=== PATIENT | female | born 1945 | race Caucasian/White ===

== ENCOUNTER 2019-12-16 10:15 | Outpatient (REF) | payer MEDICARE, OTHER, SELFPAY ==
--- NOTE | 2019-12-16 10:25 | US_ITS ---
EXAMINATION: US RETROPERITONEAL LIMITED (RENAL ONLY) CLINICAL INFORMATION: Renal cyst and stone. COMPARISON: Limited retroperitoneal ultrasounds study dated 06/12/2019 and 06/26/2018. KUB dated 11/29/2017 and 05/18/2005. CT abdomen and pelvis without and with contrast dated 10/04/2017. TECHNIQUE: Real-time imaging of the kidneys. FINDINGS: RIGHT KIDNEY: 9.1 x 4.0 x 5.1 cm (SAG x AP x TRV). The kidney is normal in size, contour, and echogenicity. Renal cortical thickness is normal. No calculi or focal parenchymal lesions. No hydronephrosis. LEFT KIDNEY: 9.6 x 4.5 x 6.0 cm (SAG x AP x TRV). The kidney is normal in size, contour, and echogenicity. Renal cortical thickness is normal. There is a 2 mm echogenic density in the midpole questionable for a small stone. No focal parenchymal lesions or hydronephrosis. US/US renal BI IMPRESSION: Question small left renal stone. Previously identified left renal cyst is not appreciated. Normal-appearing right kidney.
== END 2019-12-16 10:16 | disposition home or self-care (01) ==
LOC: HO.US 10:15
PROVIDERS: Visit Provider Urology
DX: N20.0 Calculus of kidney (principal); N28.1 Cyst of kidney, acquired
CPT/HCPCS: 76775

== ENCOUNTER → 2020-02-25 14:33 | Outpatient (BNVA) | payer MEDICARE, OTHER, SELFPAY | PROVIDERS: PCP Internal Medicine; Referring Provider Internal Medicine; Visit Provider Urology | DX: Z76.89 Persons encountering health services in other specified circumstances (principal) | CPT/HCPCS: Q3014 ==

== ENCOUNTER → 2020-03-09 09:42 | Outpatient (BNVA) | payer MEDICARE, OTHER, SELFPAY | PROVIDERS: PCP Internal Medicine; Referring Provider Internal Medicine; Visit Provider Internal Medicine | DX: Z76.89 Persons encountering health services in other specified circumstances (principal) | CPT/HCPCS: Q3014 ==

== ENCOUNTER 2020-03-19 09:54 | Outpatient (REF) | payer MEDICARE, OTHER, SELFPAY ==
--- NOTE | ~2020-03-19 | MR_ITS ---
EXAMINATION: MR BRAIN WITHOUT AND WITH CONTRAST CLINICAL INFORMATION: Benign neoplasm of the pituitary gland. COMPARISON: Brain MRI from 06/11/2019. TECHNIQUE: MRI of the brain was obtained using pituitary protocol without and following the administration of 3.5 mL of Gadavist intravenous contrast. FINDINGS: No focal restricted diffusion is demonstrated to suggest acute or subacute cerebral ischemia. Scattered periventricular and deep white matter T2 FLAIR hyperintensities consistent with moderate underlying microangiopathy. Proportional mild prominence of the ventricles and sulcal spaces without evidence of obstructive hydrocephalus. No midline shift. Postoperative changes following prior transnasal/transsphenoidal debulking of a previously demonstrated pituitary adenoma. A hypoenhancing lesion positioned anterior and superior to the pituitary gland, measuring 1.3 x 0.8 x 0.8 cm (previously 1.1 x 0.7 x 0.6 cm measured in similar planes). This lesion is again noted to abut the superior margin of the anterior pituitary gland. Normal morphology and signal intensity of the pituitary gland proper on precontrast imaging. Normal posterior pituitary bright spot. No additional hyperenhancing or hypoenhancing lesions demonstrated on post contrast imaging. The pituitary infundibulum is normal in morphology and remains midline in position. No overtly abnormal mass effect on the optic chiasm. No abnormalities of the posterior fossa with normal appearance of the brainstem and cerebellum. Normal positioning of the cerebellar tonsils. Normal arterial and venous vascular flow voids are present. No additional abnormal contrast enhancement. Normal, homogeneous marrow signal. Mild mucosal thickening of the paranasal sinuses. Mild leftward nasal septal deviation. No signal abnormalities within the mastoids. MR/MR head/brain wo/w con IMPRESSION: Postoperative changes following prior transnasal/transsphenoidal debulking of a pituitary adenoma. Interval mild increase in size of a hypoenhancing lesion along the anterior superior margins of the pituitary gland suggestive of mild lesion progression. No additional acute intracranial abnormalities. Moderate underlying microangiopathy.
[2020-03-19 10:48] LABS: Albumin Level 4.4 g/dL (3.5-5.0)
[2020-03-19 10:52] LABS: Anion Gap 13 (12-20); Blood Urea Nitrogen 17 mg/dL (9-16); Calcium 9.5 mg/dL (8.4-10.2); Carbon Dioxide 28 mmol/L (22-29); Chloride 104 mmol/L (96-108); Estimated Glomerular Filt Rate > 60; Glucose Random 107 mg/dL (60-115); Phosphorus 4.2 mg/dL (2.7-4.5); Potassium 4.4 mmol/L (3.3-5.1); Sodium 141 mmol/L (135-145)
[2020-03-19 11:15] LABS: Free T4 (Free Thyroxine) 0.95 ng/dL (0.71-1.85); Vitamin D 25-OH Total 41.8 ng/mL (>30)
[2020-03-20 04:52] LABS: Triiodothyronine T3 Total 109 ng/dL (76-181)
[2020-03-20 13:13] LABS: Calcium (PTHI) 9.5 mg/dL (8.6-10.4); PTHI 63 pg/mL (14-64)
[2020-03-20 23:06] LABS: Follicle Stimulating Hormone 51.7 mIU/mL; Lutenizing Hormone 27.1 mIU/mL; Prolactin Undiluted 8.2 ng/mL
[2020-03-24 12:17] LABS: IGF-1 (Somatomedin C) 90 ng/mL (34-245); IGF-1 Z Score (Female) -0.3 SD (-2.0 - +2.0)
== END 2020-03-19 09:55 | disposition home or self-care (01) ==
LOC: HO.MRI 09:54
PROVIDERS: Visit Provider Internal Medicine
DX: D35.2 Benign neoplasm of pituitary gland (principal); E21.3 Hyperparathyroidism, unspecified; E66.9 Obesity, unspecified
CPT/HCPCS: 36415; 70553; 80048; 82040; 82306; 82330; 83001; 83002; 83970; 84100; 84146; 84305; 84439; 84443; 84480; A9585

== ENCOUNTER 2020-05-01 10:41 | Outpatient (REF) | payer MEDICARE, OTHER, SELFPAY ==
[2020-05-01 13:39] LABS: MANUAL DIFF FLAG NO
[2020-05-01 13:41] LABS: Basophils Absolute Auto 0.1 X10*3/uL (0.0-0.2); Basophils Percent Auto 0.8 % (0-2); Eosinophils Absolute Auto 0.4 X10*3/uL (0.0-0.4); Eosinophils Percent Auto 5.9 % (0-4); Hematocrit 36.2 % (37-47); Hemoglobin 11.5 g/dl (12.0-16.0); Imm Gran Abs Auto 0.02 X10*3/uL (0.00-0.03); Imm Gran Pct Auto 0.3 % (0.0-0.4); Lymphocytes Absolute Auto 2.4 X10*3/uL (1.2-4.9); Lymphocytes Percent Auto 37.6 % (20-40); Mean Corpuscular HGB Conc 31.8 g/dl (31.0-35.0); Mean Corpuscular Volume 88.1 fL (80-98); Mean Platelet Volume 11.1 fL (9.4-12.3); Monocytes Absolute Auto 0.5 X10*3/uL (0.1-1.2); Neutrophils Absolute Auto 3.1 X10*3/uL (2.0-8.3); Neutrophils Percent Auto 48.4 % (45-73); Platelet Count 273 X10*3/uL (160-400); Red Blood Count 4.11 X10*6/uL (4.20-5.50); Red Cell Distribution Width 13.4 % (11.0-16.0); White Blood Count 6.4 X10*3/uL (4.8-10.8)
[2020-05-01 14:18] LABS: Alanine Aminotransferase 18 U/L (0-31); Albumin Level 4.4 g/dL (3.5-5.0); Alkaline Phosphatase 157 U/L (39-117); Anion Gap 11 (12-20); Aspartate Amino Transferase 19 U/L (5-31); Bilirubin Total 0.7 mg/dL (0.0-1.0); Blood Urea Nitrogen 13 mg/dL (9-16); Calcium 9.1 mg/dL (8.4-10.2); Carbon Dioxide 32 mmol/L (22-29); Chloride 104 mmol/L (96-108); Cholesterol 167 mg/dL; Estimated Glomerular Filt Rate > 60; Glucose Random 98 mg/dL (60-115); Potassium 4.1 mmol/L (3.3-5.1); Sodium 143 mmol/L (135-145); Total Protein 7.2 g/dL (6.5-8.0)
[2020-05-01 14:40] LABS: Free T4 (Free Thyroxine) 1.08 ng/dL (0.71-1.85); Thyroid Stimulating Hormone 2.35 uIU/mL (0.32-4.0)
[2020-05-04 16:32] LABS: Calcium (PTHI) 9.2 mg/dL (8.6-10.4); PTHI 63 pg/mL (14-64)
== END 2020-05-01 10:42 | disposition home or self-care (01) ==
LOC: HO.10HDL 10:41
PROVIDERS: Visit Provider Internal Medicine
DX: E03.9 Hypothyroidism, unspecified (principal); I10 Essential (primary) hypertension; K21.9 Gastro-esophageal reflux disease without esophagitis; E78.00 Pure hypercholesterolemia, unspecified; E20.9 Hypoparathyroidism, unspecified
CPT/HCPCS: 36415; 80053; 82465; 83970; 84439; 84443; 85025

== ENCOUNTER → 2020-05-04 09:23 | Outpatient (BNVA) | payer MEDICARE, OTHER, SELFPAY | PROVIDERS: PCP Internal Medicine; Visit Provider Internal Medicine | DX: Z13.89 Encounter for screening for other disorder (principal) | CPT/HCPCS: Q3014 ==

== ENCOUNTER 2020-05-06 07:33 | Outpatient (REF) | payer MEDICARE, OTHER, SELFPAY ==
[2020-05-06 09:06] LABS: Albumin Level 4.3 g/dL (3.5-5.0); Calcium 9.2 mg/dL (8.4-10.2)
[2020-05-07 18:11] LABS: Calcium (PTHI) 9.4 mg/dL (8.6-10.4); PTHI 80 pg/mL (14-64)
== END 2020-05-06 07:34 | disposition home or self-care (01) ==
LOC: HO.LAB 07:33
PROVIDERS: PCP Internal Medicine; Visit Provider Internal Medicine
DX: E21.3 Hyperparathyroidism, unspecified (principal)
CPT/HCPCS: 36415; 82040; 82310; 83970

== ENCOUNTER 2020-07-15 07:43 | Outpatient (REF) | payer MEDICARE, OTHER, SELFPAY ==
[2020-07-15 08:57] LABS: Anion Gap 12 (12-20); Blood Urea Nitrogen 8 mg/dL (9-16); Calcium 9.6 mg/dL (8.4-10.2); Carbon Dioxide 28 mmol/L (22-29); Chloride 107 mmol/L (96-108); Estimated Glomerular Filt Rate > 60; Glucose Random 118 mg/dL (60-115); Potassium 4.3 mmol/L (3.3-5.1); Sodium 143 mmol/L (135-145)
[2020-07-15 09:09] LABS: Osmolality, Serum 297 mosm/kg (281-305)
[2020-07-15 09:19] LABS: Free T4 (Free Thyroxine) 0.95 ng/dL (0.71-1.85); Thyroid Stimulating Hormone 2.63 uIU/mL (0.32-4.0)
[2020-07-16 16:42] LABS: Triiodothyronine T3 Total 114 ng/dL (76-181)
[2020-07-16 17:51] LABS: Sex Hormone Binding Globulin 31 nmol/L (14-73)
[2020-07-16 20:41] LABS: Follicle Stimulating Hormone 55.3 mIU/mL; Lutenizing Hormone 24.2 mIU/mL; Prolactin 9.7 ng/mL
[2020-07-16 22:41] LABS: Adrenocorticotropic Hormone 14 pg/mL (6-50)
[2020-07-19 21:47] LABS: Estradiol Ultra Sensitive 5 pg/mL
[2020-07-20 14:12] LABS: IGF-1 (Somatomedin C) 73 ng/mL (34-245); IGF-1 Z Score (Female) -0.7 SD (-2.0 - +2.0)
[2020-07-30 00:52] LABS: Estradiol Free 0.13 pg/mL
== END 2020-07-15 07:44 | disposition home or self-care (01) ==
LOC: HO.LAB 07:43
PROVIDERS: PCP Internal Medicine; Visit Provider Internal Medicine
DX: D35.2 Benign neoplasm of pituitary gland (principal)
CPT/HCPCS: 36415; 80048; 82024; 82533; 82670; 82681; 83001; 83002; 83930; 84146; 84270; 84305; 84439; 84443; 84480

== ENCOUNTER 2020-07-18 08:36 | Outpatient (REF) | payer MEDICARE, OTHER, SELFPAY ==
[2020-07-18 08:59] LABS: Total Volume 24 Hour Urine 2225 mL
[2020-07-18 09:54] LABS: Creatinine, mg/dL 43.01
[2020-07-20 17:52] LABS: Calcium, 24 Hr Urine 98 mg/24 h; Calcium/Creatinine Ratio 94 mg/g creat (30-275); Creatinine 24Hr Urine 1.05 g/24 h (0.50-2.15)
== END 2020-07-18 08:37 | disposition home or self-care (01) ==
LOC: HO.LNP 08:36
PROVIDERS: Visit Provider Internal Medicine
DX: E21.3 Hyperparathyroidism, unspecified (principal)
CPT/HCPCS: 82340; 82570

== ENCOUNTER → 2020-08-03 08:08 | Outpatient (BNVA) | payer MEDICARE, OTHER, SELFPAY | PROVIDERS: PCP Internal Medicine; Visit Provider Internal Medicine | CPT/HCPCS: Q3014 ==

== ENCOUNTER 2020-08-21 08:19 | Outpatient (REF) | payer MEDICARE, OTHER, SELFPAY ==
--- NOTE | ~2020-08-21 | MM_ITS ---
EXAMINATION: MM SCREENING DIGITAL BREAST TOMOSYNTHESIS, BILATERAL CLINICAL INFORMATION: Screening. Asymptomatic. The lifetime risk of breast cancer based on the Tyrer-Cuzick Model is 3%. COMPARISON: Mammography: 08/16/2019, 08/11/2018, 06/22/2017 TECHNIQUE: Digital breast tomosynthesis is performed in both the craniocaudal and mediolateral oblique views along with computer-aided detection (CAD). Synthesized 2D images are generated from the tomosynthesis. FINDINGS: There are scattered areas of fibroglandular density (ACR BI-RADS breast composition Category b). There are no significant masses, abnormal calcifications, or other abnormalities. Parenchymal pattern is similar to prior studies. No significant changes. MM/MM tomosynthesis screening BI IMPRESSION: There are no significant changes from prior study. ASSESSMENT: BI-RADS 1: Negative RECOMMENDATION: Routine annual mammography screening. This patient's information was entered into a reminder system with a target due date for their next mammogram.
== END 2020-08-21 08:20 | disposition home or self-care (01) ==
LOC: HO.MAMMO 08:19
PROVIDERS: PCP Internal Medicine; Visit Provider Internal Medicine
DX: Z12.31 Encounter for screening mammogram for malignant neoplasm of breast (principal)
CPT/HCPCS: 77063; 77067

== ENCOUNTER 2020-08-24 08:38 | Outpatient (REF) | payer MEDICARE, OTHER, SELFPAY ==
--- NOTE | ~2020-08-24 | US_ITS ---
EXAMINATION: US RETROPERITONEAL LIMITED (RENAL ONLY) CLINICAL INFORMATION: Cyst of kidney, acquired. COMPARISON: Renal ultrasound 12/16/2019 and 06/12/2019. X-ray abdomen KUB 11/29/2017. CT abdomen and pelvis 10/04/2017. TECHNIQUE: Real-time imaging of the kidneys. FINDINGS: RIGHT KIDNEY: 10.0 x 3.7 x 4.8 cm (SAG x AP x TRV). The kidney is normal in size, contour, and echogenicity. Renal cortical thickness is normal. No calculi or focal parenchymal lesions. No hydronephrosis. LEFT KIDNEY: 10.1 x 5.3 x 4.6 cm (SAG x AP x TRV). The kidney is normal in size, contour, and echogenicity. Renal cortical thickness is normal. There is a 7 mm hypoechoic lesion in the midpole. This was not seen on most recent exam December 2019. This appears unchanged in size from earlier renal ultrasound exam May [address] of the abdomen and pelvis September 2017. This has internal echoes that are difficult to clear, particularly on the transverse view, and not compatible with a simple cyst. No renal calculi or hydronephrosis. US/US renal BI IMPRESSION: No change in size in the 7 mm hypoechoic lesion in the peripheral left kidney. This has some internal echoes that are difficult to clear and may represent a complex cyst. Continued follow-up recommended.
== END 2020-08-24 08:39 | disposition home or self-care (01) ==
LOC: HO.US 08:38
PROVIDERS: Visit Provider Urology
DX: N28.1 Cyst of kidney, acquired (principal); N20.0 Calculus of kidney
CPT/HCPCS: 76775

== ENCOUNTER 2020-11-02 07:27 | Outpatient (REF) | payer MEDICARE, OTHER, SELFPAY ==
[2020-11-02 08:25] LABS: Osmolality, Serum 299 mosm/kg (281-305)
[2020-11-02 08:35] LABS: Alanine Aminotransferase 21 U/L (0-31); Albumin Level 4.3 g/dL (3.5-5.0); Alkaline Phosphatase 129 U/L (39-117); Anion Gap 14 (12-20); Aspartate Amino Transferase 21 U/L (5-31); Bilirubin Total 0.5 mg/dL (0.0-1.0); Blood Urea Nitrogen 13 mg/dL (9-16); Calcium 9.5 mg/dL (8.4-10.2); Carbon Dioxide 26 mmol/L (22-29); Chloride 107 mmol/L (96-108); Estimated Glomerular Filt Rate > 60; Glucose Random 131 mg/dL (60-115); Phosphorus 3.9 mg/dL (2.7-4.5); Potassium 4.3 mmol/L (3.3-5.1); Sodium 143 mmol/L (135-145); Total Protein 6.9 g/dL (6.5-8.0)
[2020-11-02 09:31] LABS: Free T4 (Free Thyroxine) 0.87 ng/dL (0.71-1.85); Vitamin D 25-OH Total 39.9 ng/mL (>30)
[2020-11-03 18:06] LABS: Triiodothyronine T3 Total 96 ng/dL (76-181)
[2020-11-03 18:17] LABS: Sex Hormone Binding Globulin 30 nmol/L (14-73)
[2020-11-03 18:27] LABS: Calcium (PTHI) 9.7 mg/dL (8.6-10.4); PTHI 51 pg/mL (14-64)
[2020-11-03 18:56] LABS: Adrenocorticotropic Hormone 31 pg/mL (6-50)
[2020-11-04 03:18] LABS: Follicle Stimulating Hormone 55.9 mIU/mL; Lutenizing Hormone 27.7 mIU/mL; Prolactin Undiluted 10.1 ng/mL
[2020-11-05 14:47] LABS: IGF-1 (Somatomedin C) 58 ng/mL (34-245); IGF-1 Z Score (Female) -1.1 SD (-2.0 - +2.0)
[2020-11-12 22:17] LABS: Estradiol Free 0.15 pg/mL; Estradiol, Ultrasensitive 6 pg/mL
== END 2020-11-02 07:28 | disposition home or self-care (01) ==
LOC: HO.LAB 07:27
PROVIDERS: PCP Internal Medicine; Visit Provider Internal Medicine
DX: D35.2 Benign neoplasm of pituitary gland (principal); E03.9 Hypothyroidism, unspecified; E04.2 Nontoxic multinodular goiter; E21.3 Hyperparathyroidism, unspecified; E55.9 Vitamin D deficiency, unspecified
CPT/HCPCS: 36415; 80053; 82024; 82306; 82533; 82670; 82681; 83001; 83002; 83930; 83970; 84100; 84146; 84270; 84305; 84439; 84443; 84480

== ENCOUNTER → 2020-11-11 13:28 | Outpatient (BNVA) | payer MEDICARE, OTHER, SELFPAY | PROVIDERS: PCP Internal Medicine; Visit Provider Internal Medicine | DX: E21.3 Hyperparathyroidism, unspecified (principal); E03.9 Hypothyroidism, unspecified; E55.9 Vitamin D deficiency, unspecified; E04.2 Nontoxic multinodular goiter; D35.2 Benign neoplasm of pituitary gland; M85.80 Other specified disorders of bone density and structure, unspecified site | CPT/HCPCS: 99212 ==

== ENCOUNTER → 2020-11-20 14:07 | Outpatient (BNVA) | payer MEDICARE, OTHER, SELFPAY | PROVIDERS: PCP Internal Medicine | DX: N20.0 Calculus of kidney (principal); N28.1 Cyst of kidney, acquired | CPT/HCPCS: Q3014 ==

== ENCOUNTER 2020-12-21 07:29 | Outpatient (REF) | payer MEDICARE, OTHER, SELFPAY ==
[2020-12-21 07:46] LABS: MANUAL DIFF FLAG NO
[2020-12-21 08:26] LABS: Basophils Absolute Auto 0.1 X10*3/uL (0.0-0.2); Basophils Percent Auto 0.8 % (0-2); Eosinophils Absolute Auto 0.2 X10*3/uL (0.0-0.4); Eosinophils Percent Auto 3.5 % (0-4); Hematocrit 37.1 % (37.0-47.0); Hemoglobin 11.6 g/dl (12.0-16.0); Imm Gran Abs Auto 0.01 X10*3/uL (0.00-0.03); Imm Gran Pct Auto 0.2 % (0.0-0.4); Lymphocytes Absolute Auto 2.3 X10*3/uL (1.2-4.9); Lymphocytes Percent Auto 38.2 % (20-40); Mean Corpuscular HGB Conc 31.3 g/dl (31.0-35.0); Mean Corpuscular Hemoglobin 26.7 pg (27.0-33.0); Mean Corpuscular Volume 85.3 fL (80.0-98.0); Mean Platelet Volume 10.4 fL (9.4-12.3); Monocytes Absolute Auto 0.4 X10*3/uL (0.1-1.2); Neutrophils Absolute Auto 3.1 x10*3/uL (2.0-8.3); Neutrophils Percent Auto 51.3 % (45-73); Platelet Count 258 X10*3/uL (160-400); Red Blood Count 4.35 X10*6/uL (4.20-5.50); Red Cell Distribution Width 14.3 % (11.0-16.0)
[2020-12-21 08:49] LABS: Alanine Aminotransferase 26 U/L (0-31); Albumin Level 4.3 g/dL (3.5-5.0); Alkaline Phosphatase 135 U/L (39-117); Anion Gap 12 (12-20); Aspartate Amino Transferase 25 U/L (5-31); Bilirubin Total 0.6 mg/dL (0.0-1.0); Blood Urea Nitrogen 12 mg/dL (9-16); Calcium 9.5 mg/dL (8.4-10.2); Carbon Dioxide 28 mmol/L (22-29); Chloride 106 mmol/L (96-108); Cholesterol 145 mg/dL; Estimated Glomerular Filt Rate 59; Glucose Fasting 128 mg/dL (60-99); HDL Cholesterol 45 mg/dL; LDL Cholesterol Calculated 58 mg/dl; Potassium 4.4 mmol/L (3.3-5.1); Sodium 142 mmol/L (135-145); Total Protein 7.1 g/dL (6.5-8.0); Triglycerides 210 mg/dL
[2020-12-21 09:00] LABS: Thyroid Stimulating Hormone 1.51 uIU/mL (0.32-4.0)
[2020-12-22 18:11] LABS: Triiodothyronine T3 Total 116 ng/dL (76-181)
== END 2020-12-21 07:30 | disposition home or self-care (01) ==
LOC: HO.LAB 07:29
PROVIDERS: Absent Provider Internal Medicine; PCP Internal Medicine; Visit Provider Internal Medicine
DX: E03.9 Hypothyroidism, unspecified (principal); E78.00 Pure hypercholesterolemia, unspecified; I10 Essential (primary) hypertension; K21.9 Gastro-esophageal reflux disease without esophagitis; E04.2 Nontoxic multinodular goiter
CPT/HCPCS: 36415; 80053; 80061; 84439; 84443; 84480; 85025

== ENCOUNTER 2020-12-22 12:58 | Outpatient (REF) | payer MEDICARE, OTHER, SELFPAY ==
--- NOTE | ~2020-12-22 | US_ITS ---
EXAMINATION: US THYROID CLINICAL INFORMATION: Nontoxic multinodular goiter COMPARISON: Ultrasound soft tissue head/neck thyroid dated 07/11/2019 and 10/18/2011. TECHNIQUE: Linear transducer grayscale and color Doppler examination with attention to the region of the thyroid. FINDINGS: SIZE: Measurements of the thyroid lobes and nodules are given in sagittal, anteroposterior and transverse dimensions respectively. Right Thyroid Lobe: 3.7 x 1.4 x 0.9 cm, volume 2.5 mL. Left Thyroid Lobe: 3.6 x 1.2 x 0.7 cm, volume 1.6 mL. Isthmus: 0.3 cm in maximum AP dimension. THYROID PARENCHYMA NODULES: Thyroid gland has normal echotexture with exception of scattered small colloid cysts. The vascularity of the gland is normal. The colloid cysts in the mid and lower pole the right lobe, isthmus and inferior left lobe measure less than 0.4 cm. A small, approximately 0.1 cm echogenic focus of apparent calcification is seen in the left lobe. This corresponds to the area of the colloid cyst that previously measured 0.8 cm. NODES: No lymphadenopathy is seen in the tissue surrounding the thyroid gland. US/US thyroid IMPRESSION: Multiple small colloid cysts are present in the thyroid gland. Based on use of ACR TI-RADS, there are no nodules that require recommendations for either follow-up or fine needle aspiration-biopsy. However, ACR TI-RADS Committee recommendations serve as guidance. Ultimately, decisions regarding whether or not to perform ultrasound follow-up or FNA should account for referring physician preference, patient risk factors for thyroid cancer, patient age, comorbidities, life expectancy and any other relevant considerations.
== END 2020-12-22 12:59 | disposition home or self-care (01) ==
LOC: HO.US 12:58
PROVIDERS: PCP Internal Medicine; Visit Provider Internal Medicine
DX: E04.2 Nontoxic multinodular goiter (principal)
CPT/HCPCS: 76536

== ENCOUNTER 2021-05-10 07:02 | Outpatient (REF) | payer MEDICARE, OTHER, SELFPAY ==
[2021-05-10 07:49] LABS: Alanine Aminotransferase 22 U/L (0-31); Albumin Level 4.3 g/dL (3.5-5.0); Alkaline Phosphatase 121 U/L (39-117); Anion Gap 12 (12-20); Aspartate Amino Transferase 21 U/L (5-31); Bilirubin Total 0.6 mg/dL (0.0-1.0); Blood Urea Nitrogen 14 mg/dL (9-16); Calcium 9.5 mg/dL (8.4-10.2); Carbon Dioxide 27 mmol/L (22-29); Chloride 108 mmol/L (96-108); Estimated Glomerular Filt Rate > 60; Glucose Random 122 mg/dL (60-115); Phosphorus 3.5 mg/dL (2.7-4.5); Potassium 4.3 mmol/L (3.3-5.1); Sodium 143 mmol/L (135-145)
[2021-05-10 08:11] LABS: Free T4 (Free Thyroxine) 1.12 ng/dL (0.71-1.85); Thyroid Stimulating Hormone 1.26 uIU/mL (0.32-4.0); Vitamin D 25-OH Total 41.2 ng/mL (>30)
[2021-05-10 08:50] LABS: Cortisol Random 9.3 ug/dL
[2021-05-11 07:40] LABS: Osmolality, Serum 295 mosm/kg (281-305)
[2021-05-11 17:16] LABS: Triiodothyronine T3 Total 115 ng/dL (76-181)
[2021-05-11 18:52] LABS: Follicle Stimulating Hormone 59.8 mIU/mL; Lutenizing Hormone 26.9 mIU/mL; Prolactin Undiluted 7.3 ng/mL
[2021-05-13 15:06] LABS: Calcium (PTHI) 9.4 mg/dL (8.6-10.4); PTHI 48 pg/mL (16-77)
[2021-05-13 15:22] LABS: Adrenocorticotropic Hormone 16 pg/mL (6-50)
[2021-05-14 11:42] LABS: IGF-1 (Somatomedin C) 98 ng/mL (34-245); IGF-1 Z Score (Female) -0.1 SD (-2.0 - +2.0)
[2021-05-20 03:46] LABS: Estradiol, Ultrasensitive 5 pg/mL
== END 2021-05-10 07:03 | disposition home or self-care (01) ==
LOC: HO.LAB 07:02
PROVIDERS: PCP Internal Medicine; Referring Provider Internal Medicine; Visit Provider Internal Medicine
DX: E03.9 Hypothyroidism, unspecified (principal); E04.2 Nontoxic multinodular goiter; E21.3 Hyperparathyroidism, unspecified; E55.9 Vitamin D deficiency, unspecified; D35.2 Benign neoplasm of pituitary gland
CPT/HCPCS: 36415; 80053; 82024; 82306; 82533; 82670; 82681; 83001; 83002; 83930; 83970; 84100; 84146; 84305; 84439; 84443; 84480

== ENCOUNTER → 2021-05-12 13:18 | Outpatient (BNVA) | payer MEDICARE, OTHER, SELFPAY | PROVIDERS: PCP Internal Medicine; Visit Provider Internal Medicine | DX: E21.3 Hyperparathyroidism, unspecified (principal); D35.2 Benign neoplasm of pituitary gland; E04.2 Nontoxic multinodular goiter; E55.9 Vitamin D deficiency, unspecified; M85.80 Other specified disorders of bone density and structure, unspecified site; E27.40 Unspecified adrenocortical insufficiency | CPT/HCPCS: 99212 ==

== ENCOUNTER 2021-05-25 07:32 | Outpatient (REF) | payer MEDICARE, OTHER, SELFPAY ==
[2021-05-26 12:42] LABS: Adrenocorticotropic Hormone 19 pg/mL (6-50)
[2021-05-26 23:27] LABS: Cortisol 30 Minute 25.3 mcg/dL; Cortisol Baseline 15.4 mcg/dL
== END 2021-05-25 07:33 | disposition home or self-care (01) ==
LOC: HO.MDS 07:32
PROVIDERS: PCP Internal Medicine; Visit Provider Internal Medicine
DX: E27.40 Unspecified adrenocortical insufficiency (principal)
CPT/HCPCS: 36415; 82024; 82533; 96374; J0834

== ENCOUNTER 2021-08-23 07:20 | Outpatient (REF) | payer MEDICARE, OTHER, SELFPAY ==
[2021-08-23 08:14] LABS: Alanine Aminotransferase 32 U/L (0-31); Albumin Level 4.3 g/dL (3.5-5.0); Alkaline Phosphatase 117 U/L (39-117); Anion Gap 11 (12-20); Aspartate Amino Transferase 32 U/L (5-31); Bilirubin Total 0.4 mg/dL (0.0-1.0); Blood Urea Nitrogen 11 mg/dL (9-16); Carbon Dioxide 27 mmol/L (22-29); Chloride 107 mmol/L (96-108); Estimated Glomerular Filt Rate > 60; Glucose Random 130 mg/dL (60-115); Phosphorus 3.5 mg/dL (2.7-4.5); Potassium 4.1 mmol/L (3.3-5.1); Sodium 141 mmol/L (135-145); Total Protein 7.1 g/dL (6.5-8.0)
[2021-08-23 08:34] LABS: Free T4 (Free Thyroxine) 1.61 ng/dL (0.71-1.85); Thyroid Stimulating Hormone 1.05 uIU/mL (0.32-4.0); Vitamin D 25-OH Total 41.6 ng/mL (>30)
[2021-08-23 09:02] LABS: Osmolality, Serum 306 mosm/kg (281-305)
[2021-08-23 11:47] LABS: Cortisol Random 9.1 ug/dL
[2021-08-24 12:11] LABS: Calcium (PTHI) 9.1 mg/dL (8.6-10.4); PTHI 58 pg/mL (16-77)
[2021-08-24 15:26] LABS: Adrenocorticotropic Hormone 17 pg/mL (6-50)
[2021-08-25 06:21] LABS: Triiodothyronine T3 Total 101 ng/dL (76-181)
[2021-08-25 08:22] LABS: Sex Hormone Binding Globulin 32 nmol/L (14-73)
[2021-08-25 23:31] LABS: Follicle Stimulating Hormone 50.8 mIU/mL; Prolactin Undiluted 8.5 ng/mL
[2021-08-26 22:11] LABS: Estradiol Ultra Sensitive 4 pg/mL
[2021-08-27 13:46] LABS: IGF-1 (Somatomedin C) 88 ng/mL (34-245); IGF-1 Z Score (Female) -0.3 SD (-2.0 - +2.0)
== END 2021-08-23 07:21 | disposition home or self-care (01) ==
LOC: HO.LAB 07:20
PROVIDERS: PCP Internal Medicine; Visit Provider Internal Medicine
DX: D35.2 Benign neoplasm of pituitary gland (principal); E21.3 Hyperparathyroidism, unspecified; E55.9 Vitamin D deficiency, unspecified
CPT/HCPCS: 36415; 80053; 82024; 82306; 82533; 82670; 83001; 83002; 83930; 83970; 84100; 84146; 84270; 84305; 84439; 84443; 84480

== ENCOUNTER 2021-08-25 08:27 | Outpatient (REF) | payer MEDICARE, OTHER, SELFPAY ==
--- NOTE | ~2021-08-25 | MM_ITS ---
EXAMINATION: MM SCREENING DIGITAL BREAST TOMOSYNTHESIS, BILATERAL CLINICAL INFORMATION: Screening. Asymptomatic. The lifetime risk of breast cancer based on the Tyrer-Cuzick Model is 3%. COMPARISON: Mammography: 08/21/2020, 08/16/2019, 08/11/2018 TECHNIQUE: Digital breast tomosynthesis is performed in both the craniocaudal and mediolateral oblique views along with computer-aided detection (CAD). Synthesized 2D images are generated from the tomosynthesis. Additional bilateral CC views are provided. FINDINGS: There are scattered areas of fibroglandular density (ACR BI-RADS breast composition Category b). There are no significant masses, abnormal calcifications, or other abnormalities. Breast tissue composition borders on predominantly fatty. Background stromal markings are normal. No developing density. No significant changes. MM/MM tomosynthesis screening BI IMPRESSION: No mammographic evidence of malignancy. ASSESSMENT: BI-RADS 1: Negative RECOMMENDATION: Routine annual mammography screening. This patient's information was entered into a reminder system with a target due date for their next mammogram.
== END 2021-08-25 08:28 | disposition home or self-care (01) ==
LOC: HO.MAMMO 08:27
PROVIDERS: Visit Provider Internal Medicine
DX: Z12.31 Encounter for screening mammogram for malignant neoplasm of breast (principal)
CPT/HCPCS: 77063; 77067

== ENCOUNTER 2021-08-30 07:12 | Outpatient (REF) | payer MEDICARE, OTHER, SELFPAY ==
[2021-08-30 08:18] LABS: Alanine Aminotransferase 24 U/L (0-31); Albumin Level 4.3 g/dL (3.5-5.0); Alkaline Phosphatase 112 U/L (39-117); Aspartate Amino Transferase 24 U/L (5-31); Bilirubin Direct 0.2 mg/dL (0.0-0.5); Bilirubin Total 0.5 mg/dL (0.0-1.0)
== END 2021-08-30 07:13 | disposition home or self-care (01) ==
LOC: HO.LAB 07:12
PROVIDERS: PCP Internal Medicine; Visit Provider Internal Medicine
DX: D35.2 Benign neoplasm of pituitary gland (principal)
CPT/HCPCS: 36415; 80076

== ENCOUNTER 2021-09-07 07:37 | Outpatient (REF) | payer MEDICARE, OTHER, SELFPAY ==
[2021-09-08 19:32] LABS: Adrenocorticotropic Hormone 12 pg/mL (6-50)
[2021-09-09 00:31] LABS: Cortisol 30 Minute 20.4 mcg/dL; Cortisol 60 Minute 24.7 mcg/dL; Cortisol Baseline 7.8 mcg/dL
== END 2021-09-07 07:38 | disposition home or self-care (01) ==
LOC: HO.MDS 07:37
PROVIDERS: PCP Internal Medicine; Visit Provider Internal Medicine
DX: E27.40 Unspecified adrenocortical insufficiency (principal)
CPT/HCPCS: 36415; 82024; 82533; 96374; J0834

== ENCOUNTER → 2021-09-08 12:54 | Outpatient (BNVA) | payer MEDICARE, OTHER, SELFPAY | PROVIDERS: PCP Internal Medicine; Visit Provider Internal Medicine | DX: D35.2 Benign neoplasm of pituitary gland (principal); E27.40 Unspecified adrenocortical insufficiency; E21.3 Hyperparathyroidism, unspecified; E04.2 Nontoxic multinodular goiter; E03.9 Hypothyroidism, unspecified; E55.9 Vitamin D deficiency, unspecified; M85.80 Other specified disorders of bone density and structure, unspecified site | CPT/HCPCS: 99212 ==

== ENCOUNTER 2021-09-13 11:18 | Day surgery (SDC) | payer MEDICARE, OTHER, SELFPAY ==
[2021-09-08 09:58] VITALS: BMI 29.0
--- NOTE | 2021-09-09 15:28 | P.CONAN_ITS ---
Documented by User: Maria Guadalupe Nash NP 09/10/21 08:25 HPI - Anesthesia Eval Consult details Narrative: 76yo F for Colonoscopy PMFSH Active Problems Active Problems: All Active Problems (Updated 09/08/21 @ 09:58 by Deedee Soler, EVA) Low serum cortisol level (Acute) Renal cyst (Acute) Renal stone (Acute) Multinodular thyroid (Acute) Hyperparathyroidism (Acute) Hypothyroidism (Acute) Vitamin D deficiency (Acute) Osteopenia (Acute) Pituitary macroadenoma (Acute) Past Medical History Medical History CAD (coronary artery disease) GERD (gastroesophageal reflux disease) HLD (hyperlipidemia) Hyperparathyroidism Hypothyroidism Low serum cortisol level Multinodular thyroid Myocardial infarct Osteopenia Pituitary macroadenoma Renal cyst Renal stone Vitamin D deficiency Family History Family History Father Liver cancer Mother Pancreatic cancer Surgical History Surgical History H/O colonoscopy History of bladder surgery History of esophagogastroduodenoscopy (EGD) History of pituitary surgery Hx of lithotripsy Hx of parathyroidectomy Hx of squamous cell carcinoma excision Social History Social History Alcohol intake: never Patient Tobacco Use Status: Never used Tobacco Are you DNR?: No Advance Directives: No Advance Directives Information Provided: Yes Nutrition Risks: No Nutritional Risk Meds Allergies Allergy/AdvReac Type Severity Reaction Status Date / Time No Known Allergies Allergy Verified 09/13/21 11:48 [No Known Allergies*] Home Medications Medication Instructions Recorded Confirmed Last Taken Type aspirin 81 mg tablet,delayed 81 mg PO DAILY 12/09/19 09/08/21 09/07/21 History release atorvastatin 40 mg tablet 40 mg PO DAILY 12/09/19 09/08/21 Unknown History calcium 600 mg-D3 800 unit-mag11 1 tab PO DAILY 12/09/19 09/08/21 Unknown History 50 cv-xgbw-wiarnb-osman-s.borat tablet (Caltrate 600-D Plus Minerals) metoprolol tartrate 25 mg tablet 12.5 mg PO BID 12/09/19 09/08/21 09/13/21 History omeprazole 20 mg capsule,delayed 20 mg PO DAILY 12/09/19 09/08/21 09/13/21 History release Exam Exam Date and Time: September 09, 2021 1528 Height,Weight and Vital Signs: Height 4 ft 11 in Weight 65.317 kg Pertinent Lab Results Pertinent Lab Results: Laboratory Tests 12/21/20 08/23/21 07:45 07:50 WBC 6.0 Hgb 11.6 L Hct 37.1 Plt Count 258 Sodium 141 Potassium 4.1 Chloride 107 Carbon Dioxide 27 BUN 11 Creatinine 0.87 Narrative Narrative: ECHO 03/2019 1. Sinus rhythm 2. LV size, wall thickness, and systolic function are normal with an EF of 60- 65%. Grade 1 diastolic dysfunction with an impaired relaxation filling pattern and normal filling pressures. There is mild infolateral hypokinesis suspected. 3. Atrial size is normal 4. RV systolic function is normal 5. Aortic sclerosis without evidence of stenosis or regurgitation 6. Mild tricuspid regurg 8. No pulmonary htn 9. No pericardial effusion 10. Aortic root is normal in size 11. Lipomatous hypertrophy of the interatrial septum is present with little hypermobile septum 12. No significant change from 2015 Assessment and Plan Assessment Anesthesia Assessment: Chart Reviewed Documented by User: Baldemar Ross MD 09/13/21 12:10 [facility] Past Medical History Medical History CAD (coronary artery disease) GERD (gastroesophageal reflux disease) HLD (hyperlipidemia) Hyperparathyroidism Hypothyroidism Low serum cortisol level Multinodular thyroid Myocardial infarct Osteopenia Pituitary macroadenoma Renal cyst Renal stone Vitamin D deficiency Family History Family History Father Liver cancer Mother Pancreatic cancer Family history of problems with anesthesia: No Surgical History Surgical History H/O colonoscopy History of bladder surgery History of esophagogastroduodenoscopy (EGD) History of pituitary surgery Hx of lithotripsy Hx of parathyroidectomy Hx of squamous cell carcinoma excision History of Problems with Anesthesia: No Social History Social History Alcohol intake: never Patient Tobacco Use Status: Never used Tobacco Are you DNR?: No Advance Directives: No Advance Directives Information Provided: Yes Nutrition Risks: No Nutritional Risk Meds Allergies Allergy/AdvReac Type Severity Reaction Status Date / Time No Known Allergies Allergy Verified 09/13/21 11:48 [No Known Allergies*] Home Medications Medication Instructions Recorded Confirmed Last Taken Type aspirin 81 mg tablet,delayed 81 mg PO DAILY 12/09/19 09/08/21 09/07/21 History release atorvastatin 40 mg tablet 40 mg PO DAILY 12/09/19 09/08/21 Unknown History calcium 600 mg-D3 800 unit-mag11 1 tab PO DAILY 12/09/19 09/08/21 Unknown History 50 bo-llpx-kfviwy-osman-s.borat tablet (Caltrate 600-D Plus Minerals) metoprolol tartrate 25 mg tablet 12.5 mg PO BID 12/09/19 09/08/21 09/13/21 History omeprazole 20 mg capsule,delayed 20 mg PO DAILY 12/09/19 09/08/21 09/13/21 History release Exam Airway Mallampati Class: II TM Dist: >3cm Neck ROM: Full Assessment and Plan Assessment Anesthesia Assessment: Anesthesia Plan Discussed Final Anesthetic Review Family History of Problems with Anesthesia: No History of Problems with Anesthesia: No NPO: Yes ASA Class: III Final Preanesthetic Review: No Changes in Pt Med Stat, Meds/Allgs Chart Reviewed, Consent Obtained/Reviewed and Anes Risks/Benef Reviewed Patient Risk: Low Procedure Risk: Low Anesthetic Plan Anesthetic Plan: MAC: Disposition: Standard PACU
[2021-09-13] MEDS: Lactated Ringers 1,000 ML 100 ML IVCONT (11:42)
[2021-09-13 11:54] VITALS: BP 125/74; PULSE 81; RESP 18; TEMP 36.5; O2SAT 98
[2021-09-13 13:42] VITALS: BP 120/54; PULSE 81; RESP 16; TEMP 36.8; O2SAT 96
--- NOTE | 2021-09-13 13:47 | PM.OP ---
Brief Operative Note Date of Service: 09/13/21 Pre-op diagnosis: Screening Post-op diagnosis: other (Diverticulosis) Procedure: Colonoscopy to the cecum Surgeon: Alex Verdugo Anesthesia: MAC Was an Welding Equipment Repairer Supervisor used for this Procedure?: No Estimated blood loss (mL): 0 Pathology: none sent Condition: stable Disposition: PACU
[2021-09-13 13:57] VITALS: BP 115/59; PULSE 84; RESP 18; TEMP 36.7; O2SAT 95
[2021-09-13 14:22] VITALS: BP 109/52; PULSE 78; RESP 16; TEMP 36.8; O2SAT 96
--- NOTE | 2021-09-14 00:47 | OP_ITS ---
SURGEON: Alex Verdugo MD INDICATIONS: The patient presents for evaluation of colorectal cancer screening. Full consent obtained from her for this, including risks of bleeding and perforation. PREOPERATIVE DIAGNOSIS: Colorectal cancer screening. POSTOPERATIVE DIAGNOSIS: PROCEDURE PERFORMED: Colonoscopy to the cecum. ESTIMATED BLOOD LOSS: COMPLICATIONS: ANESTHESIA: Monitored anesthesia care. ASSISTANTS: SPECIMENS: POSTOPERATIVE DIAGNOSES: Colorectal cancer screening, diverticulosis, and internal hemorrhoids. DESCRIPTION OF PROCEDURE: The patient was placed in the left lateral decubitus position. The digital rectal exam revealed no abnormalities. The Olympus video pediatric colonoscope was entered into the rectum and advanced to the cecum with the assistance of abdominal pressure. Once in the cecum, I did identify normal-appearing cecal pouch with appendiceal orifice and a normal-appearing ileocecal valve. There was transillumination of light deep in the right lower quadrant. The entire cecum and ileocecal valve appeared normal. The scope was slowly withdrawn assessing all mucosal surfaces carefully. Preparation was excellent. I did not visualize any sign of polyps, colitis, nor angiodysplasia. There was a mild amount of sigmoid diverticulosis. In the rectum, scope was retroflexed visualizing internal hemorrhoids, but no other pathology. The rectal mucosa appeared normal. The scope was straightened and withdrawn from the patient. She tolerated the procedure well and was returned to the recovery area in stable condition. IMPRESSION: 1. Diverticulosis. 2. Internal hemorrhoids. PLAN: Given the negative exam, no family history of colon cancer, and her age, I do not think she would need any further screening colonoscopies. As such, she will see me on a p.r.n. basis. She was advised to resume aspirin today. MD JH Matute/PAXTONL / [id number]
== END 2021-09-13 14:52 | disposition home or self-care (01) ==
PROVIDERS: PCP Internal Medicine; Visit Provider Internal Medicine
PROC: 0DJD8ZZ Inspection of Lower Intestinal Tract, Via Natural or Artificial Opening Endoscopic (ICD-10-PCS; CPT 45378; principal; 2021-09-13 12:30)
DX: Z12.11 Encounter for screening for malignant neoplasm of colon (principal); K57.30 Diverticulosis of large intestine without perforation or abscess without bleeding; K64.8 Other hemorrhoids; K21.9 Gastro-esophageal reflux disease without esophagitis; I10 Essential (primary) hypertension; E78.5 Hyperlipidemia, unspecified; I25.10 Atherosclerotic heart disease of native coronary artery without angina pectoris; I25.2 Old myocardial infarction; Z79.82 Long term (current) use of aspirin; Z79.899 Other long term (current) drug therapy
CPT/HCPCS: G0121

== ENCOUNTER 2021-11-02 09:31 | Outpatient (REF) | payer MEDICARE, OTHER, SELFPAY ==
--- NOTE | ~2021-11-02 | US_ITS ---
EXAMINATION: US RETROPERITONEAL LIMITED (RENAL ONLY) CLINICAL INFORMATION: Calculus of kidney. COMPARISON: Ultrasound retroperitoneal limited (renal only) 08/24/2020 and 12/16/2019. X-ray abdomen KUB 11/29/2017. CT abdomen and pelvis without and with contrast 10/04/2017. TECHNIQUE: Real-time imaging of the kidneys. FINDINGS: RIGHT KIDNEY: 9.4 x 3.8 x 5.0 cm (SAG x AP x TRV). The kidney is normal in size, contour, and echogenicity. Renal cortical thickness is normal. No calculi or focal parenchymal lesions. No hydronephrosis. LEFT KIDNEY: 9.7 x 4.6 x 4.1 cm (SAG x AP x TRV). The kidney is normal in size, contour, and echogenicity. Renal cortical thickness is normal. No renal calculi or hydronephrosis. There is anechoic cyst midpole measuring 0.6 x 0.5 x 0.6 cm with posterior wall echogenic foci. US/US renal BI IMPRESSION: Complex Bosniak type II cyst with posterior wall calcification midpole left kidney. Previously this cyst was not seen. There was a small echogenic stones suspected in left kidney. The right kidney is unremarkable.
== END 2021-11-02 09:32 | disposition home or self-care (01) ==
LOC: HO.US 09:31
DX: N20.0 Calculus of kidney (principal); N28.1 Cyst of kidney, acquired
CPT/HCPCS: 76775

== ENCOUNTER → 2021-11-19 13:24 | Outpatient (BNVA) | payer MEDICARE, OTHER, SELFPAY | PROVIDERS: PCP Internal Medicine; Visit Provider Urology | DX: N28.1 Cyst of kidney, acquired (principal); R39.15 Urgency of urination; Z87.442 Personal history of urinary calculi | CPT/HCPCS: 51798; 99212 ==

== ENCOUNTER 2021-11-27 07:59 | Outpatient (REF) | payer MEDICARE, OTHER, SELFPAY ==
[2021-11-27 08:31] LABS: Appearance Urine Clear; Color Urine Yellow; Glucose Urine UA Negative (Negative); Leukocyte Esterase Urine Moderate (2+) (Negative); Nitrite Urine Negative (Negative); PH 6.5 (5.0-9.0); UMIC TRIGGER UA YES; Urine Blood Trace (Negative); Urine Ketones Negative (Negative); Urine Protein Negative (Neg-Trace)
[2021-11-27 08:36] LABS: Bacteria Urine None Seen (None Seen); Hyaline Casts Urine 0-2 /LPF (0-2); RBC Urine 0-2 /HPF (0-2)
== END 2021-11-27 08:00 | disposition home or self-care (01) ==
LOC: HO.LAB 07:59
PROVIDERS: PCP Internal Medicine; Visit Provider Urology
DX: R39.15 Urgency of urination (principal); D49.7 Neoplasm of unspecified behavior of endocrine glands and other parts of nervous system; Z87.442 Personal history of urinary calculi; Z92.3 Personal history of irradiation
CPT/HCPCS: 81001

== ENCOUNTER 2021-12-18 07:32 | Outpatient (REF) | payer MEDICARE, OTHER, SELFPAY ==
[2021-12-18 07:48] LABS: MANUAL DIFF FLAG NO
[2021-12-18 08:09] LABS: Basophils Percent Auto 0.6 % (0-2); Eosinophils Absolute Auto 0.2 X10*3/uL (0.0-0.4); Eosinophils Percent Auto 3.9 % (0-4); Hemoglobin 11.3 g/dl (12.0-16.0); Imm Gran Abs Auto 0.01 X10*3/uL (0.00-0.03); Imm Gran Pct Auto 0.2 % (0.0-0.4); Lymphocytes Absolute Auto 1.8 X10*3/uL (1.2-4.9); Lymphocytes Percent Auto 34.2 % (20-40); Mean Corpuscular HGB Conc 31.4 g/dl (31.0-35.0); Mean Corpuscular Hemoglobin 26.1 pg (27.0-33.0); Mean Corpuscular Volume 83.1 fL (80.0-98.0); Mean Platelet Volume 10.5 fL (9.4-12.3); Monocytes Absolute Auto 0.4 X10*3/uL (0.1-1.2); Monocytes Percent Auto 8.4 % (2-11); Neutrophils Absolute Auto 2.7 x10*3/uL (2.0-8.3); Neutrophils Percent Auto 52.7 % (45-73); Platelet Count 225 X10*3/uL (160-400); Red Blood Count 4.33 X10*6/uL (4.20-5.50); Red Cell Distribution Width 15.2 % (11.0-16.0); White Blood Count 5.1 X10*3/uL (4.8-10.8)
[2021-12-18 08:47] LABS: Alanine Aminotransferase 22 U/L (0-31); Albumin Level 4.2 g/dL (3.5-5.0); Alkaline Phosphatase 137 U/L (39-117); Anion Gap 18 (12-20); Aspartate Amino Transferase 23 U/L (5-31); Bilirubin Total 0.5 mg/dL (0.0-1.0); Blood Urea Nitrogen 13 mg/dL (9-16); Carbon Dioxide 23 mmol/L (22-29); Chloride 106 mmol/L (96-108); Cholesterol 154 mg/dL; Estimated Glomerular Filt Rate > 60; Glucose Fasting 126 mg/dL (60-99); HDL Cholesterol 47 mg/dL; LDL Cholesterol Calculated 77 mg/dl; Potassium 4.1 mmol/L (3.3-5.1); Sodium 143 mmol/L (135-145); Triglycerides 154 mg/dL
[2021-12-18 09:11] LABS: Free T4 (Free Thyroxine) 1.13 ng/dL (0.71-1.85); Thyroid Stimulating Hormone 1.86 uIU/mL (0.32-4.0); Vitamin D 25-OH Total 45.1 ng/mL (>30)
== END 2021-12-18 07:33 | disposition home or self-care (01) ==
LOC: HO.LAB 07:32
PROVIDERS: PCP Internal Medicine; Visit Provider Internal Medicine
DX: I10 Essential (primary) hypertension (principal); E78.00 Pure hypercholesterolemia, unspecified; E03.9 Hypothyroidism, unspecified
CPT/HCPCS: 36415; 80053; 80061; 82306; 84439; 84443; 85025

== ENCOUNTER 2021-12-22 09:15 | Outpatient (REF) | payer MEDICARE, OTHER, SELFPAY ==
--- NOTE | ~2021-12-22 | MM_ITS ---
EXAMINATION: BONE DENSITOMETRY CLINICAL INDICATION: Postmenopausal. COMPARISON: Previous BD dated 02/19/2019 and baseline BD dated 12/19/2007. TECHNIQUE: Using a [employer] DXA System (software version: 13.1) manufactured by [employer], dual-energy x-ray absorptiometry was performed of the lumbar spine and left hip. The images are of good technical quality. Summary results are attached. FINDINGS: AP SPINE L1-L3 (excluding L4): The data of L1-L4 has been changed to exclude the L4 vertebral body, because degenerative sclerosis at this level may cause overestimation of lumbar spine density. Current: BMD 1.097 g/cm2, Z-score 1.2, T-score -0.6, normal, 0.9% increase from previous, 4.8% increase from baseline (<5% change is not significant). Prior: BMD 1.087 g/cm2. Baseline: BMD 1.047 g/cm2. LEFT FEMUR, NECK: Current: BMD 0.823 g/cm2, Z-score 0.4, T-score -1.5, osteopenia. Prior: BMD 0.834 g/cm2. Baseline: BMD 0.847 g/cm2. LEFT FEMUR, TOTAL: Current: BMD 0.855 g/cm2, Z-score 0.6, T-score -1.2, osteopenia, 2.8% increase from previous, 1.3% decrease from baseline (<5% change is not significant). Prior: BMD 0.832 g/cm2. Baseline: BMD 0.866 g/cm2. IDENTIFIED RISK FACTORS: Menopause. HISTORY OF FRACTURE: None listed. MEDICATIONS: Calcium, vitamin D. MM/XR DEXA axial skeleton IMPRESSION: 1. DIAGNOSIS: Osteopenia based on the lowest T-score value of -1.5 in the femoral neck applying World Health Organization criteria. 2. 10-YEAR FRACTURE RISK PREDICTION, FRAX: Major osteoporotic fracture (clinical spine, forearm, hip or shoulder) 6.3%. Hip fracture 1.3%. 3. Treatment Recommendations: NOF guidelines recommend consideration for treatment in postmenopausal women and men age 50 and older presenting with the following: -A hip or vertebral (clinical or morphometric) fracture. -T-score less than or equal to -2.5 at the femoral neck or spine after appropriate evaluation to exclude secondary causes. -Low bone mass at the hip or spine and a 10-year fracture probability by FRAX of greater than or equal to 3% for hip fracture or greater than or equal to 20% for major osteoporotic fracture based on the [place] adapted WHO algorithm. 4. Other Recommendations: All treatment decisions require clinical judgment and consideration of individual patient factors, including patient preferences, comorbidities, previous drug use, risk factors not captured in the FRAX model (e.g. frailty, falls, vitamin D deficiency, increased bone turnover, interval significant decline in bone density) and possible under or overestimation of fracture risk by FRAX. Additional medical evaluation for secondary cause of low bone mineral density may be appropriate. FUTURE SCAN RECOMMENDATION: People with diagnosed cases of osteoporosis or at high risk for fracture should have regular bone mineral density tests. For patients eligible for Medicare, routine testing is allowed once every 2 years. The testing frequency can be increased to one year for patients who have rapidly progressing disease, those who are receiving or discontinuing medical therapy to restore bone mass, or have additional risk factors.
== END 2021-12-22 09:16 | disposition home or self-care (01) ==
LOC: HO.MAMMO 09:15
PROVIDERS: Visit Provider Internal Medicine
DX: Z13.820 Encounter for screening for osteoporosis (principal); Z78.0 Asymptomatic menopausal state
CPT/HCPCS: 77080

== ENCOUNTER 2022-01-11 07:21 | Outpatient (REF) | payer MEDICARE, OTHER, SELFPAY ==
[2022-01-11 08:35] LABS: Cortisol Random 11.5 ug/dL
[2022-01-11 08:41] LABS: Anion Gap 12 (12-20); Blood Urea Nitrogen 13 mg/dL (9-16); Calcium 9.2 mg/dL (8.4-10.2); Carbon Dioxide 26 mmol/L (22-29); Chloride 105 mmol/L (96-108); Estimated Glomerular Filt Rate > 60; Free T4 (Free Thyroxine) 1.14 ng/dL (0.71-1.85); Glucose Random 112 mg/dL (60-115); Potassium 4.2 mmol/L (3.3-5.1); Sodium 139 mmol/L (135-145)
[2022-01-12 08:37] LABS: Osmolality, Serum 293 mosm/kg (281-305)
[2022-01-12 18:28] LABS: Adrenocorticotropic Hormone 21 pg/mL (6-50)
[2022-01-13 07:23] LABS: Sex Hormone Binding Globulin 35 nmol/L (14-73); Triiodothyronine T3 Total 118 ng/dL (76-181)
[2022-01-14 05:54] LABS: Follicle Stimulating Hormone 42.6 mIU/mL; Lutenizing Hormone 18.6 mIU/mL; Prolactin Undiluted 9.4 ng/mL
[2022-01-17 00:48] LABS: Estradiol Ultra Sensitive 4 pg/mL
[2022-01-19 15:38] LABS: IGF-1 (Somatomedin C) 73 ng/mL (34-245); IGF-1 Z Score (Female) -0.7 SD (-2.0 - +2.0)
== END 2022-01-11 07:22 | disposition home or self-care (01) ==
LOC: HO.LAB 07:21
PROVIDERS: PCP Internal Medicine; Visit Provider Internal Medicine
DX: D35.2 Benign neoplasm of pituitary gland (principal)
CPT/HCPCS: 36415; 80048; 82024; 82533; 82670; 83001; 83002; 83930; 84146; 84270; 84305; 84439; 84443; 84480

== ENCOUNTER 2022-05-12 07:25 | Outpatient (REF) | payer MEDICARE, OTHER, SELFPAY ==
[2022-05-12 07:30] LABS: MANUAL DIFF FLAG NO
[2022-05-12 08:16] LABS: Basophils Percent Auto 0.6 % (0-2); Eosinophils Absolute Auto 0.3 X10*3/uL (0.0-0.4); Eosinophils Percent Auto 4.4 % (0-4); Hematocrit 36.1 % (37.0-47.0); Hemoglobin 11.4 g/dl (12.0-16.0); Imm Gran Abs Auto 0.03 X10*3/uL (0.00-0.03); Imm Gran Pct Auto 0.5 % (0.0-0.4); Lymphocytes Absolute Auto 2.8 X10*3/uL (1.2-4.9); Lymphocytes Percent Auto 44.3 % (20-40); Mean Corpuscular HGB Conc 31.6 g/dl (31.0-35.0); Mean Corpuscular Hemoglobin 26.8 pg (27.0-33.0); Mean Corpuscular Volume 84.9 fL (80.0-98.0); Mean Platelet Volume 10.6 fL (9.4-12.3); Monocytes Absolute Auto 0.4 X10*3/uL (0.1-1.2); Monocytes Percent Auto 6.6 % (2-11); Neutrophils Absolute Auto 2.8 x10*3/uL (2.0-8.3); Neutrophils Percent Auto 43.6 % (45-73); Platelet Count 275 X10*3/uL (160-400); Red Blood Count 4.25 X10*6/uL (4.20-5.50); Red Cell Distribution Width 15.2 % (11.0-16.0); White Blood Count 6.4 X10*3/uL (4.8-10.8)
[2022-05-12 08:18] LABS: Appearance Urine Clear; Color Urine Yellow; Glucose Urine UA Negative (Negative); Leukocyte Esterase Urine Moderate (2+) (Negative); Nitrite Urine Negative (Negative); UMIC TRIGGER UA YES; Urine Blood Trace (Negative); Urine Ketones Negative (Negative); Urine Protein Negative (Neg-Trace)
[2022-05-12 08:23] LABS: Bacteria Urine None Seen (None Seen); Hyaline Casts Urine 0-2 /LPF (0-2); RBC Urine 0-2 /HPF (0-2)
[2022-05-12 08:47] LABS: Alanine Aminotransferase 24 U/L (0-31); Albumin Level 4.1 g/dL (3.5-5.0); Alkaline Phosphatase 131 U/L (39-117); Anion Gap 14 (12-20); Aspartate Amino Transferase 26 U/L (5-31); Bilirubin Total 0.5 mg/dL (0.0-1.0); Blood Urea Nitrogen 13 mg/dL (9-16); C Reactive Protein < 0.10 mg/dL (< or = 0.50); Calcium 9.5 mg/dL (8.4-10.2); Carbon Dioxide 27 mmol/L (22-29); Chloride 105 mmol/L (96-108); Estimated Glomerular Filt Rate 57; Glucose Random 142 mg/dL (60-115); Potassium 4.2 mmol/L (3.3-5.1); Sodium 142 mmol/L (135-145); Total Protein 6.7 g/dL (6.5-8.0)
[2022-05-12 09:02] LABS: Free T4 (Free Thyroxine) 1.14 ng/dL (0.71-1.85); Thyroid Stimulating Hormone 2.51 uIU/mL (0.32-4.0)
== END 2022-05-12 07:26 | disposition home or self-care (01) ==
LOC: HO.LAB 07:25
PROVIDERS: PCP Internal Medicine; Visit Provider Internal Medicine
DX: R10.9 Unspecified abdominal pain (principal); E03.9 Hypothyroidism, unspecified
CPT/HCPCS: 36415; 80053; 81001; 81003; 84439; 84443; 85025; 86140

== ENCOUNTER → 2022-05-18 10:49 | Outpatient (BNVA) | payer MEDICARE, OTHER, SELFPAY | PROVIDERS: PCP Internal Medicine; Visit Provider Internal Medicine | DX: D35.2 Benign neoplasm of pituitary gland (principal); E21.3 Hyperparathyroidism, unspecified; E04.2 Nontoxic multinodular goiter; E03.9 Hypothyroidism, unspecified; E55.9 Vitamin D deficiency, unspecified; M85.80 Other specified disorders of bone density and structure, unspecified site | CPT/HCPCS: 99212 ==

== ENCOUNTER 2022-05-19 07:22 | Outpatient (REF) | payer MEDICARE, OTHER, SELFPAY ==
[2022-05-19 08:57] LABS: Alanine Aminotransferase 33 U/L (0-31); Albumin Level 4.3 g/dL (3.5-5.0); Alkaline Phosphatase 142 U/L (39-117); Anion Gap 15 (12-20); Aspartate Amino Transferase 32 U/L (5-31); Bilirubin Total 0.7 mg/dL (0.0-1.0); Blood Urea Nitrogen 14 mg/dL (9-16); Calcium 9.3 mg/dL (8.4-10.2); Carbon Dioxide 28 mmol/L (22-29); Chloride 106 mmol/L (96-108); Estimated Glomerular Filt Rate > 60; Glucose Random 127 mg/dL (60-115); Phosphorus 4.1 mg/dL (2.7-4.5); Potassium 4.4 mmol/L (3.3-5.1); Sodium 145 mmol/L (135-145); Total Protein 6.9 g/dL (6.5-8.0)
[2022-05-19 09:03] LABS: Cortisol Random 14.1 ug/dL
[2022-05-19 10:50] LABS: Osmolality, Serum 300 mosm/kg (281-305)
[2022-05-23 21:49] LABS: Calcium (PTHI) 9.5 mg/dL (8.6-10.4); PTHI 32 pg/mL (16-77)
[2022-05-23 22:34] LABS: Prolactin Undiluted 9.8 ng/mL
[2022-05-26 06:30] LABS: Adrenocorticotropic Hormone 20 pg/mL (6-50)
== END 2022-05-19 07:23 | disposition home or self-care (01) ==
LOC: HO.LAB 07:22
PROVIDERS: Visit Provider Internal Medicine
DX: D35.2 Benign neoplasm of pituitary gland (principal); E21.3 Hyperparathyroidism, unspecified; E55.9 Vitamin D deficiency, unspecified
CPT/HCPCS: 36415; 80053; 82024; 82306; 82533; 83930; 83970; 84100; 84146; 84305

== ENCOUNTER 2022-05-24 13:34 | Outpatient (REF) | payer MEDICARE, OTHER, SELFPAY ==
--- NOTE | ~2022-05-24 | US_ITS ---
EXAMINATION: US THYROID CLINICAL INFORMATION: Nontoxic multinodular goiter. COMPARISON: Ultrasound thyroid 12/22/2020 and 07/11/2019. TECHNIQUE: Linear transducer grayscale and color Doppler examination with attention to the region of the thyroid. FINDINGS: SIZE: Measurements of the thyroid lobes and nodules are given in sagittal, anteroposterior and transverse dimensions respectively. Right Thyroid Lobe: 3.8 x 1.5 x 0.9 cm, volume 2.7 mL. Previously 3.7 x 1.4 x 0.9 cm, volume 2.5 mL. Parenchyma: The gland echotexture is homogeneous. Thyroid vascularity is normal. Left Thyroid Lobe: 3.2 x 1.2 x 0.8 cm, volume 1.6 mL. Previously 3.6 x 1.2 x 0.8 cm, volume 1.6 mL. Parenchyma: The gland echotexture is heterogeneous. Thyroid vascularity is normal. Isthmus: 0.3 cm in maximum AP dimension. Previously 0.3 cm. No focal thyroid nodule is seen. There are small bilateral simple and colloid cysts. NODES: There is a normal-appearing left cervical lymph node measuring 0.6 x 0.4 x 0.4 cm.. US/US thyroid IMPRESSION: Small thyroid gland. The left lobe is slightly heterogeneous. Small colloid and simple cysts. No suspicious nodule. According to TI RADS criteria, no ultrasound follow-up or fine-needle aspiration recommended. ACR TI-RADS RECOMMENDATION REFERENCE: Ultrasound-guided fine-needle aspiration, followup ultrasound, no further follow up. * TR1 (0 point) and TR2 (2 points): No FNA or follow up. * TR3 (3 points): FNA if more than or equal to 2.5 cm in maximum dimension, followup ultrasound in 1, 3 and 5 years if 1.5 to 2.4 cm in maximum dimension. * TR4 (4-6 points): FNA if more than or equal to 1.5 cm in maximum dimension, followup ultrasound in 1, 2, 3 and 5 years if 1 to 1.4 cm in maximum dimension. * TR5 (more than or equal to 7 points): FNA if more than or equal to 1 cm in maximum dimension, followup ultrasound every year for 5 years if 0.5 to 0.9 cm in maximum dimension. * TR3, TR4 or TR5 nodules that are below the size threshold for followup receive no follow up.
== END 2022-05-24 13:35 | disposition home or self-care (01) ==
LOC: HO.US 13:34
PROVIDERS: Visit Provider Internal Medicine
DX: E04.2 Nontoxic multinodular goiter (principal)
CPT/HCPCS: 76536

== ENCOUNTER 2022-06-02 08:05 | Outpatient (REF) | payer MEDICARE, OTHER, SELFPAY ==
--- NOTE | ~2022-06-02 | MR_ITS ---
EXAMINATION: MR BRAIN WITHOUT CONTRAST CLINICAL INFORMATION: Worsening headaches, history of pituitary adenoma resection COMPARISON: MR brain with and without contrast 03/19/2020 TECHNIQUE: Multiplanar multisequence MR imaging of the brain was obtained without intravenous contrast. FINDINGS: Redemonstration of postsurgical changes from transsphenoidal debulking of a pituitary adenoma. Stable appearance of the uniformly enhancing [place] pituitary gland within the mid and posterior sella with trace leftward deviation of the pituitary infundibulum. Hypoenhancing residual tumor along the anterior margin of the sella appears stable in size compared to MRI from 03/19/2020 measuring up to 1.1 x 0.8 x 0.9 cm (stable when measured in a similar manner). Normal configuration of the optic chiasm without mass effect. There is normal contrast filling of the cavernous sinuses with preserved cavernous carotid flow voids. There is no acute infarct on diffusion-weighted imaging. No extra-axial collection or mass effect/herniation. Patchy periventricular and deep white matter T2 FLAIR hyperintensities consistent with moderate underlying microangiopathy. No hydrocephalus. Mild generalized cerebral volume loss with commensurate sulcal and ventricular prominence. The major flow voids at the skull base are preserved. The cerebellar tonsils are normally positioned. The craniocervical junction is normal. Marrow signal is within normal limits. The visualized soft tissues are without significant abnormality. No signal abnormality within the paranasal sinuses or within the mastoid air cells. MR/MR head/brain wo/w con IMPRESSION: 1. No acute intracranial abnormality 2. Postsurgical changes from transsphenoidal debulking of a pituitary adenoma with stable size of residual tumor along the anterior aspect of the sella compared to MRI from 03/19/2020. There is no suprasellar mass effect.
== END 2022-06-02 08:06 | disposition home or self-care (01) ==
LOC: HO.MRI 08:05
PROVIDERS: PCP Internal Medicine; Visit Provider Internal Medicine
DX: D35.2 Benign neoplasm of pituitary gland (principal)
CPT/HCPCS: 70553; A9585

== ENCOUNTER 2022-09-09 10:48 | Outpatient (REF) | payer MEDICARE, OTHER, SELFPAY ==
--- NOTE | ~2022-09-09 | MM_ITS ---
EXAMINATION: MM SCREENING DIGITAL BREAST TOMOSYNTHESIS, BILATERAL CLINICAL INFORMATION: Screening. Asymptomatic. The lifetime risk of breast cancer based on the Tyrer-Cuzick Model is 3%. COMPARISON: Mammography: This study is compared with prior exams dating back to 2018. TECHNIQUE: Digital breast tomosynthesis is performed in both the craniocaudal and mediolateral oblique views along with computer-aided detection (CAD). Synthesized 2D images are generated from the tomosynthesis. FINDINGS: The breasts are almost entirely fatty (ACR BI-RADS breast composition Category a). There are no significant masses, abnormal calcifications, or other abnormalities. MM/MM tomosynthesis screening BI IMPRESSION: No mammographic evidence of malignancy. ASSESSMENT: BI-RADS BI-RADS 1 - Negative RECOMMENDATION: Routine annual mammography screening. 1 year F/U This examination should not preclude the clinical evaluation of a suspicious palpable abnormality. This patient's information was entered into a reminder system with a target due date for their next mammogram.
== END 2022-09-09 10:49 | disposition home or self-care (01) ==
LOC: HO.MAMMO 10:48
PROVIDERS: PCP Internal Medicine; Visit Provider Internal Medicine
DX: Z12.31 Encounter for screening mammogram for malignant neoplasm of breast (principal)
CPT/HCPCS: 77063; 77067

== ENCOUNTER → 2022-09-09 11:00 | Outpatient (BNV) | payer MEDICARE, OTHER, SELFPAY | PROVIDERS: PCP Internal Medicine; Visit Provider Radiology Diagnostic Radiology | DX: Z12.31 Encounter for screening mammogram for malignant neoplasm of breast (principal) | CPT/HCPCS: 77063; 77067 ==

== ENCOUNTER 2022-10-07 15:12 | Outpatient (AMB) | payer MEDICARE, OTHER, SELFPAY ==
--- NOTE | 2022-10-07 15:16 | MHC.OFFVIS ---
Intake Vital Signs 10/07/22 15:19 Height 4 ft 11 in Weight 143 lb 15.39 oz BMI 29.1 BP 120/72 Blood Pressure Location Lt brachial Position Sitting Pulse 62 Pulse Source Pulse Oximeter Intake Visit Reasons: F/U Pituitary Macroadenoma Intake Note: Patient present today for Pituitary Macroadenoma follow up visit. 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 Accompanied by: Self / Same As Patient Allergies No Known Allergies [No Known Allergies*] Allergy (Verified 10/07/22 15:20) Medication List - Last Reconciled 10/07/22 by Alex Rodriguez MD aspirin 81 mg PO DAILY atorvastatin 40 mg PO DAILY [id number] 600 mg calcium- 800 unit-50 mg (Caltrate 600-D Plus Minerals) 1 tab PO DAILY levothyroxine 50 mcg PO DAILY 30 days metoprolol tartrate 12.5 mg PO BID nitrofurantoin monohyd/m-cryst 100 mg (Macrobid) 100 mg PO BID 7 days omeprazole 20 mg PO DAILY HPI HPI Comments History of Present Illness Details 77 YO Female with PMHx Pituitary Macroadenoma, Osteopenia, Hyperparathyroidism who is seen in F/U for the same. The patient last saw Dr. Baig on 05/18/2022 1) Pituitary Macroadenoma: Patient had an MRI of the cervical spine in April 2018 which revealed enlargement of the pituitary gland. She then had a dedicated Pituitary MRI in May of 2018, and repeated again in October of 2018 which revealed a 1.5 cm Pituitary Macroadenoma. She was not referred to Endocrinology at that time, and did not have formal visual field testing or any hormonal evaluation. She then presented to her PCP with the complaint of intermittent double vision and excruciating headache. Referral was then placed for Endocrinology. After our initial evaluation she was referred to Dr. Lauren Cramer for transphenoidal resection as the mass did appear to be abutting the optic chiasm. This was thought to represent a sellar mass, not arising from the pituitary, but with some erosion through the diaphragm and compression of the optic chiasm. She underwent transphenoidal resection of this mass 04/03/2019 and was discharged from the hospital 04/04/2019. She had postoperative sodium and cortisol levels that were WNL, so she was not discharged on any glucocorticoid therapy. She did develop transient hyponatremia on POD #7, but this resolved spontaneously. She had a repeat Pituitary MRI completed 06/11/2019 which revealed a 0.6 x 0.7 x 0.9 cm residual focus of hypoenhancement that was thought to represent residual tumor. Pituitary MRI repeated 03/19/2020 which revealed growth to 1.3 cm. MRI was sent to Dr. Lauren Rodriguez who recommended reoperation vs stereotactic radiation. He opted to not undergo retreatment and to instead have her MRI repeated in 6 months time to reevaluate. She was due for this in September 2020, but she did not present for this as she was fearful it would represent growth. Repeat formal visual field testing was completed 11/26/2019 and was WNL. She had a repeat Pituitary MRI 11/26/2020 which revealed interval growth of the pituitary mass to 1.3 cm. There was abutting of the optic chiasm and the prechiasmatic optic nerves bilaterally. She did discuss this with Dr. Rodriguez, and she refused additional surgery. She did undergo stereotactic radiation in the spring. She had a repeat pituitary MRI December 2021, the results of which have not yet been received. She does report daily headaches which she states are worsening. She is scheduled for a formal visual field exam later this month. She reports extreme fatigue. Denies any orthostatic symptoms. Weight has been stable. Labs reveal am cortisol low. She completed cosyntropin stim testing yesterday, but results not yet available. Recent repeat MRI of the pituitary showed the lesion was stable. It was not abutting the optic chiasm. Laboratory shows show adrenal axis is intact. 2) Hyperparathyroidism: She does report having multiple bouts of kidney stones in the past. She had lithotrypsy for this. She had calcium checked in early 2018 and this was slightly higher than expected at 10.0, but prior to that it had always remained WNL. Vitamin D has always remained WNL. Her PTH has been mildly elevated, up to 89. She had a DEXA scan 02/19/2019 that revealed Osteopenia of the Hip and the Spine. No Forearm was completed. We repeated labs 10/18/2019 with a Total Calcium 10.0, Albumin 4.5, PTH 51, Vitamin D 39.4 and Creatinine WNL. She underwent a 3.5 gland surgical parathyroidectomy 03/25/[address] Bryan Cazares. Intraoperative PTH declined from 56-22. Calcium and PTH currently postoperative were WNL. She remains on Caltrate 600 mg PO daily. 3) Multinodular Thyroid: She does have a multinodular thyroid with multiple subcentimeter nodules bilaterally. She denies compressive symptoms. She does have hypothyroidism and takes Levothyroxine 50 mcg PO daily. FT4 and TT3 are WNL. Pituitary MRI: 11/26/2020 Multilobulated enhancing masses demonstrated along the anterior aspect of the sella turcica more prominent to the right of midline.? This is mildly increased in size from the previous examination now measuring approximately 10 mm transverse by 10 mm AP by 13 mm SI compared to 8 x 8 x 12 mm on the previous MRI.? A component extends into the suprasellar cistern abutting the optic chiasm, right greater than left, and abutting the prechiasmatic optic nerves bilaterally.? A partially cystic components at the anterior margin of the lesion slightly more pronounced on the left side and abuts the medial side of the left optic nerve.? On the right, both the inferior and medial surfaces of the optic nerves aren?t affected by the mass, although neither optic nerve is displaced by the mass.? The lesion extends into the right cavernous sinus abutting the cavernous internal carotid artery, similar to the previous examination.? The pituitary infundibulum is slightly deviated towards the left side but is normal in size.? Remaining pituitary tissue in the sella appears normal, and hypothalamus is normal.? DEXA: 12/22/2021 FINDINGS: AP SPINE L1-L3 (excluding L4): The data of L1-L4 has been changed to exclude the L4 vertebral body, because degenerative sclerosis at this level may cause overestimation of lumbar spine density. Current: BMD 1.097 g/cm2, Z-score 1.2, T-score -0.6, normal, 0.9% increase from previous, 4.8% increase from baseline (<5% change is not significant). Prior: BMD 1.087 g/cm2. Baseline: BMD 1.047 g/cm2. LEFT FEMUR, NECK: Current: BMD 0.823 g/cm2, Z-score 0.4, T-score -1.5, osteopenia. Prior: BMD 0.834 g/cm2. Baseline: BMD 0.847 g/cm2. LEFT FEMUR, TOTAL: Current: BMD 0.855 g/cm2, Z-score 0.6, T-score -1.2, osteopenia, 2.8% increase from previous, 1.3% decrease from baseline (<5% change is not significant). Prior: BMD 0.832 g/cm2. Baseline: BMD 0.866 g/cm2. Thyroid US: 12/22/2020 Right Thyroid Lobe: 3.7 x 1.4 x 0.9 cm, volume 2.5 mL. Left Thyroid Lobe: 3.6 x 1.2 x 0.7 cm, volume 1.6 mL. Isthmus: 0.3 cm in maximum AP dimension. THYROID PARENCHYMA NODULES: Thyroid gland has normal echotexture with exception of scattered small colloid cysts. The vascularity of the gland is normal. The colloid cysts in the mid and lower pole the right lobe, isthmus and inferior left lobe measure less than 0.4 cm.? A small, approximately 0.1 cm echogenic focus of apparent calcification is seen in the left lobe. This corresponds to the area of the colloid cyst that previously measured 0.8 cm. NODES: No lymphadenopathy is seen in the tissue surrounding the thyroid gland. Labs: Laboratory Tests 01/11/22 05/12/22 07:40 07:29 Sodium 142 Potassium 4.2 Creatinine 0.96 Estimated GFR 57 TSH 2.51 Free T4 1.14 Total T3 118 Estradiol Ultra LC MSMS 4 FSH 42.6 Luteinizing Hormon e 18.6 Prolactin Undilute d 9.4 PFSH Medical History CAD (coronary artery disease) GERD (gastroesophageal reflux disease) HLD (hyperlipidemia) Hyperparathyroidism Hypothyroidism Low serum cortisol level Multinodular thyroid Myocardial infarct Osteopenia Pituitary macroadenoma Renal cyst Renal stone Vitamin D deficiency Surgical History H/O colonoscopy History of bladder surgery History of esophagogastroduodenoscopy (EGD) History of pituitary surgery Hx of lithotripsy Hx of parathyroidectomy Hx of squamous cell carcinoma excision Family History Father Liver cancer Mother Pancreatic cancer Social History Alcohol intake: never Patient Tobacco Use Status: Never used Tobacco Physical Exam Vital Signs: Last Vital Signs Pulse 62 10/07/22 15:19 BP 120/72 10/07/22 15:19 BMI result Body Mass Index 29.1 Const Other: Thyroid gland is normal size weighs about 15 g. There are no thyroid nodules palpated. There is no visual field loss by gross confrontation Assessment & Plan Assessment & Plan (1) Multinodular thyroid: Code(s): E04.2 - Nontoxic multinodular goiter (2) Hyperparathyroidism: Code(s): E21.3 - Hyperparathyroidism, unspecified Plan: Status post parathyroidectomy with normalization of calcium and vitamin-D (3) Hypothyroidism: Code(s): E03.9 - Hypothyroidism, unspecified Qualifiers: Hypothyroidism type: unspecified Qualified Code(s): E03.9 - Hypothyroidism, unspecified Plan: Clinically euthyroid on levothyroxine 50 mcg but feeling fatigued and gaining weight. Will increase levothyroxine 75 mcg and recheck TSH and free T4 in 6 weeks (4) Pituitary macroadenoma: Code(s): D35.2 - Benign neoplasm of pituitary gland Plan: This 77-year-old white female with history of pituitary macroadenoma status post transsphenoidal surgery and subsequent radiotactic surgery. Recent MRI shows stability in the size of the mass. Pituitary axis remains intact. Plan is to continue observation. The possibility exists that she could be experiencing symptoms of growth hormone deficiency. I went over this with her. If she still continues to feel symptoms with optimization of TSH, could consider sending her for growth hormone stimulation test to rule out growth hormone deficiency. This may need to be done with referral to [facility] Orders: Orders Free T4 (Free Thyroxine) 6 Weeks E03.9 - Hypothyroidism, unspecified, E04.2 - Nontoxic multinodular goiter Thyroid Stimulating Hormone 6 Weeks E03.9 - Hypothyroidism, unspecified, E04.2 - Nontoxic multinodular goiter Medications: New levothyroxine 75 mcg PO DAILY 30 tabs 5RF Discontinued levothyroxine Discontinued Reason: Doctor's Order 50 mcg PO DAILY 30 days 30 tabs 11RF E03.9 - Hypothyroidism, unspecified Coding Level of Care Code Est Pt Level 3 (46320) Diagnoses Multinodular thyroid E04.2 Hyperparathyroidism E21.3 Hypothyroidism E03.9 Hypothyroidism type: unspecified Pituitary macroadenoma D35.2
[2022-10-07 15:19] VITALS: BP 120/72; PULSE 62; BMI 29.1
== END 2022-10-07 16:11 | disposition home or self-care (01) ==
PROVIDERS: PCP Internal Medicine; Referring Provider Internal Medicine; Visit Provider Internal Medicine Endocrinology, Diabetes & Metabolism
DX: E04.2 Nontoxic multinodular goiter (principal); E21.3 Hyperparathyroidism, unspecified; E03.9 Hypothyroidism, unspecified; D35.2 Benign neoplasm of pituitary gland
CPT/HCPCS: 99213

== ENCOUNTER → 2022-10-07 15:12 | Outpatient (BNVA) | payer MEDICARE, OTHER, SELFPAY | PROVIDERS: Visit Provider Internal Medicine Endocrinology, Diabetes & Metabolism | DX: D35.2 Benign neoplasm of pituitary gland (principal); E04.2 Nontoxic multinodular goiter; E21.3 Hyperparathyroidism, unspecified; E03.9 Hypothyroidism, unspecified; Z79.899 Other long term (current) drug therapy | CPT/HCPCS: 99212 ==

== ENCOUNTER 2022-11-03 09:18 | Outpatient (REF) | payer MEDICARE, OTHER, SELFPAY ==
--- NOTE | ~2022-11-03 | US_ITS ---
EXAMINATION: US RETROPERITONEAL LIMITED (RENAL ONLY) CLINICAL INFORMATION: Cyst of kidney, acquired. Left renal cyst, Bosniak type II. COMPARISON: Renal ultrasound 11/02/2021 and 08/24/2020. X-ray abdomen KUB 11/29/2017. CT abdomen and pelvis 10/04/2017. TECHNIQUE: Real-time imaging of the kidneys. Limited visualization due to bowel gas. FINDINGS: RIGHT KIDNEY: 9.2 x 4.3 x 5.0 cm (SAG x AP x TRV). No hydronephrosis. No renal calculi. Renal cortical thickness is normal. Limited visualization. LEFT KIDNEY: 9.1 x 5.4 x 3.5 cm (SAG x AP x TRV). Previously identified mid pole cyst is not visualized today. Left renal lower pole 0.6 x 0.6 x 0.6 cm cyst with benign features. No followup imaging is indicated. Left renal midpole cortical echogenic focus is characteristic of a tiny calcification. No hydronephrosis. Limited visualization. US/US renal BI IMPRESSION: 1. Left renal midpole cortical echogenic focus is characteristic of a tiny calcification. 2. No hydronephrosis.
== END 2022-11-03 09:19 | disposition home or self-care (01) ==
LOC: HO.US 09:18
PROVIDERS: PCP Internal Medicine; Visit Provider Urology
DX: N28.1 Cyst of kidney, acquired (principal); Z87.442 Personal history of urinary calculi
CPT/HCPCS: 76775

== ENCOUNTER 2022-11-09 07:20 | Outpatient (REF) | payer MEDICARE, OTHER, SELFPAY ==
[2022-11-09 09:33] LABS: Free T4 (Free Thyroxine) 1.12 ng/dL (0.71-1.85); Thyroid Stimulating Hormone 0.24 uIU/mL (0.32-4.0)
== END 2022-11-09 07:21 | disposition home or self-care (01) ==
LOC: HO.LAB 07:20
PROVIDERS: PCP Internal Medicine; Visit Provider Internal Medicine Endocrinology, Diabetes & Metabolism
DX: E04.9 Nontoxic goiter, unspecified (principal); E03.9 Hypothyroidism, unspecified
CPT/HCPCS: 36415; 84439; 84443

== ENCOUNTER 2022-11-25 15:13 | Outpatient (AMB) | payer MEDICARE, OTHER, SELFPAY ==
--- NOTE | 2022-11-25 15:26 | A.OFFVIS_ITS ---
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 11/25/22 ? 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 She has a significant history of pituitary tumors, post-surgery treatment, and recent radiation therapy. She has a history of hyperparathyroidism post-surgery.? She has a history of left kidney stone status post-left ESWL a few years ago. She is overall doing well. She states she is drinking plenty of water. She denies any symptoms related to renal colic or irritative voiding symptoms. 11/03/22 -- US RETROPERITONEAL ? Right kidney -- No hydronephrosis. No renal calculi. Left kidney -- Previously identified mid pole cyst is not visualized today. Left renal lower pole 0.6 x 0.6 x 0.6 cm cyst with benign features. There is a tiny ecogenic changes that possibly may represent a calcification. Plan Discussed previous Left kidney Type II Bosniac cyst not visualized on 11/03/22 renal US Will continue to monitor kidneys. FU in one year, tele-health visit, Renal US prior. [facility] Medical History Myocardial infarct Low serum cortisol level Renal cyst Renal stone Multinodular thyroid HLD (hyperlipidemia) CAD (coronary artery disease) GERD (gastroesophageal reflux disease) Hyperparathyroidism Hypothyroidism Vitamin D deficiency Osteopenia Pituitary macroadenoma Surgical History History of esophagogastroduodenoscopy (EGD) H/O colonoscopy Hx of squamous cell carcinoma excision Hx of parathyroidectomy History of pituitary surgery Hx of lithotripsy History of bladder surgery Family History Father Liver cancer Mother Pancreatic cancer Social History Alcohol intake: never Patient Tobacco Use Status: Never used Tobacco Review of Systems Const All systems reviewed & are unremarkable except as noted in HPI and below Reports no additional complaints Eyes Reports no additional complaints ENT Reports no additional complaints Card Reports no additional complaints Resp Reports no additional complaints GI Reports no additional complaints Musc Reports no additional complaints Skin/Breast Reports system reviewed and no additional complaints, except as documented Neuro Reports no additional complaints Psych Reports no additional complaints Endo Reports no additional complaints Travis/Lymph Reports no additional complaints Aller/Immun Reports no additional complaints Physical Exam Const General: healthy appearing, no acute distress and well developed Orientation/consciousness: patient oriented x3 HEENT Head: Yes normocephalic and Yes atraumatic Eyes Conjunctivae: conjunctivae normal Neck Neck: Yes normal visual inspection Chest Chest palpation & inspection: normal inspection of the chest Resp Effort & Inspection: normal respiratory effort Cardio Rate: regular rate GI Inspection: Yes normal to inspection Skin General skin exam: no rashes or lesions noted Neuro General: patient oriented x3 Extrem General: Yes no pedal edema Psych Appearance: grossly normal Affect: normal affect Results Reviewed Results Reviewed: 11/03/22 ? US RETROPERITONEAL LIMITED (RENAL ONLY) FINDINGS: RIGHT KIDNEY: 9.2 x 4.3 x 5.0 cm (SAG x AP x TRV). No hydronephrosis. No renal calculi. Renal cortical thickness is normal. Limited visualization. LEFT KIDNEY: 9.1 x 5.4 x 3.5 cm (SAG x AP x TRV). Previously identified mid pole cyst is not visualized today. Left renal lower pole 0.6 x 0.6 x 0.6 cm cyst with benign features. No followup imaging is indicated. Left renal midpole cortical echogenic focus is characteristic of a tiny calcification. No hydronephrosis. Limited visualization. IMPRESSION: 1. Left renal midpole cortical echogenic focus is characteristic of a tiny calcification. 2. No hydronephrosis. Assessment & Plan Assessment & Plan (1) Renal cyst: Code(s): N28.1 - Cyst of kidney, acquired (2) Complex renal cyst: Code(s): N28.1 - Cyst of kidney, acquired (3) History of kidney stones: Code(s): Z87.442 - Personal history of urinary calculi Plan Discussed previous Left kidney Type II Bosniac cyst not visualized on 11/03/22 renal US Will continue to monitor kidneys. FU in one year, tele-health visit, Renal US prior. Orders: Orders US renal BI 10 Months N28.1 - Cyst of kidney, acquired, Z87.442 - Personal history of urinary calculi Medications: Changed From levothyroxine 75 mcg PO DAILY 30 tabs 5RF To levothyroxine Patient is taking a total of 62.5 mg. 75 mcg PO DAILY Patient Instructions: The patient had an opportunity to ask questions regarding treatment plan. All questions were answered. Imaging, Laboratory studies and physical exam results were discussed and reviewed in detail. No major barriers to understanding were i dentified. The patient expressed understanding and agreement with the above treatment plan. The patient is aware they should contact our office by phone for worsening of their current condition or the appearance of new symptoms. Compliance is encouraged with any medications and followup testing that is ordered. It is a privilege to be allowed the opportunity to participate in the urologic care of your patient. If you have any questions or concerns regarding treatment for the above conditions please do not hesitate to contact me. The office telephone contact is [phone]. This note is constructed in part using voice recognition software. While every effort has been made to ensure accuracy mine wedge sawyer errors may have been included. Yours sincerely, Elvie Richter MD Coding Level of Care Code Est Pt Level 3 (03332) Diagnoses Renal cyst N28.1 Complex renal cyst N28.1 History of kidney stones Z87.442
== END 2022-11-25 15:48 | disposition home or self-care (01) ==
PROVIDERS: PCP Internal Medicine; Visit Provider Urology
DX: N28.1 Cyst of kidney, acquired (principal); Z87.442 Personal history of urinary calculi
CPT/HCPCS: 99213

== ENCOUNTER → 2022-11-25 15:13 | Outpatient (BNVA) | payer MEDICARE, OTHER, SELFPAY | PROVIDERS: Visit Provider Urology | DX: N28.1 Cyst of kidney, acquired (principal); Z87.442 Personal history of urinary calculi | CPT/HCPCS: 99212 ==

== ENCOUNTER 2022-12-23 09:26 | Outpatient (REF) | payer MEDICARE, OTHER, SELFPAY ==
[2022-12-23 11:43] LABS: Free T4 (Free Thyroxine) 1.04 ng/dL (0.71-1.85)
== END 2022-12-23 09:27 | disposition home or self-care (01) ==
LOC: HO.LAB 09:26
PROVIDERS: PCP Internal Medicine; Visit Provider Internal Medicine Endocrinology, Diabetes & Metabolism
DX: E03.9 Hypothyroidism, unspecified (principal)
CPT/HCPCS: 36415; 84439; 84443

== ENCOUNTER 2022-12-28 07:10 | Outpatient (REF) | payer MEDICARE, OTHER, SELFPAY ==
[2022-12-28 07:25] LABS: MANUAL DIFF FLAG NO
[2022-12-28 07:58] LABS: Basophils Percent Auto 0.6 % (0-2); Eosinophils Absolute Auto 0.3 X10*3/uL (0.0-0.4); Eosinophils Percent Auto 5.4 % (0-4); Hematocrit 37.6 % (37.0-47.0); Hemoglobin 11.9 g/dl (12.0-16.0); Imm Gran Abs Auto 0.02 X10*3/uL (0.00-0.03); Imm Gran Pct Auto 0.4 % (0.0-0.4); Lymphocytes Absolute Auto 1.8 X10*3/uL (1.2-4.9); Lymphocytes Percent Auto 33.3 % (20-40); Mean Corpuscular HGB Conc 31.6 g/dl (31.0-35.0); Mean Corpuscular Hemoglobin 27.4 pg (27.0-33.0); Mean Corpuscular Volume 86.4 fL (80.0-98.0); Mean Platelet Volume 10.7 fL (9.4-12.3); Monocytes Absolute Auto 0.5 X10*3/uL (0.1-1.2); Monocytes Percent Auto 9.6 % (2-11); Neutrophils Absolute Auto 2.7 x10*3/uL (2.0-8.3); Neutrophils Percent Auto 50.7 % (45-73); Platelet Count 239 X10*3/uL (160-400); Red Blood Count 4.35 X10*6/uL (4.20-5.50); Red Cell Distribution Width 14.8 % (11.0-16.0); White Blood Count 5.3 X10*3/uL (4.8-10.8)
[2022-12-28 08:30] LABS: Alanine Aminotransferase 29 U/L (0-31); Albumin Level 4.3 g/dL (3.5-5.0); Alkaline Phosphatase 126 U/L (39-117); Anion Gap 10 (12-20); Aspartate Amino Transferase 29 U/L (5-31); Bilirubin Total 0.5 mg/dL (0.0-1.0); Blood Urea Nitrogen 11 mg/dL (9-16); Calcium 9.4 mg/dL (8.4-10.2); Carbon Dioxide 28 mmol/L (22-29); Chloride 107 mmol/L (96-108); Cholesterol 147 mg/dL (<200); Estimated Glomerular Filt Rate > 60; Glucose Fasting 120 mg/dL (60-99); HDL Cholesterol 45 mg/dL (>40); LDL Cholesterol Calculated 64 mg/dL (<100); Sodium 141 mmol/L (135-145); Total Protein 7.6 g/dL (6.5-8.0); Triglycerides 194 mg/dL (<150)
[2022-12-28 08:45] LABS: Vitamin D 25-OH Total 54.7 ng/mL (>30)
== END 2022-12-28 07:11 | disposition home or self-care (01) ==
LOC: HO.LAB 07:10
PROVIDERS: PCP Internal Medicine; Visit Provider Internal Medicine
DX: I10 Essential (primary) hypertension (principal); E78.00 Pure hypercholesterolemia, unspecified; D35.2 Benign neoplasm of pituitary gland; M85.80 Other specified disorders of bone density and structure, unspecified site
CPT/HCPCS: 36415; 80053; 80061; 82306; 85025

== ENCOUNTER 2023-01-27 07:15 | Outpatient (REF) | payer MEDICARE, OTHER, SELFPAY ==
[2023-01-27 08:36] LABS: Free T4 (Free Thyroxine) 1.02 ng/dL (0.71-1.85); Thyroid Stimulating Hormone 0.84 uIU/mL (0.32-4.0)
== END 2023-01-27 07:16 | disposition home or self-care (01) ==
LOC: HO.LAB 07:15
PROVIDERS: Visit Provider Internal Medicine Endocrinology, Diabetes & Metabolism
DX: E03.9 Hypothyroidism, unspecified (principal)
CPT/HCPCS: 36415; 84439; 84443

== ENCOUNTER 2023-06-01 07:05 | Outpatient (REF) | payer MEDICARE, OTHER, SELFPAY ==
[2023-06-01 08:32] LABS: Free T4 (Free Thyroxine) 1.05 ng/dL (0.71-1.85); Thyroid Stimulating Hormone 0.55 uIU/mL (0.32-4.0)
== END 2023-06-01 07:06 | disposition home or self-care (01) ==
LOC: HO.LAB 07:05
PROVIDERS: PCP Internal Medicine; Visit Provider Internal Medicine Endocrinology, Diabetes & Metabolism
DX: E03.9 Hypothyroidism, unspecified (principal)
CPT/HCPCS: 36415; 84439; 84443

== ENCOUNTER 2023-06-07 12:58 | Outpatient (AMB) | payer MEDICARE, OTHER, SELFPAY ==
[2023-06-07 13:06] VITALS: BP 130/62; PULSE 59; BMI 29.2
--- NOTE | 2023-06-07 13:06 | MHC.OFFVIS ---
Vital Signs 06/07/23 13:06 Height 4 ft 11 in Weight 144 lb 6.444 oz BMI 29.2 BP 130/62 Blood Pressure Location Lt brachial Position Sitting Pulse 59 Pulse Source Pulse Oximeter Intake Visit Reasons: Thyroid Intake Note: Patient present today for Thyroid follow up visit. 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 Accompanied by: Self / Same As Patient Allergies No Known Allergies [No Known Allergies*] Allergy (Verified 06/07/23 13:10) Medication List - Last Reconciled 06/07/23 by Alex Rodriguez MD aspirin 81 mg PO DAILY atorvastatin 40 mg PO DAILY [id number] 600 mg calcium- 800 unit-50 mg (Caltrate 600-D Plus Minerals) 1 tab PO DAILY levothyroxine 50 mcg PO Q OTHER DAY levothyroxine 75 mcg PO Q OTHER DAY metoprolol tartrate 12.5 mg PO BID omeprazole 20 mg PO DAILY HPI Comments Details: 77 YO Female with PMHx Pituitary Macroadenoma, Osteopenia, Hyperparathyroidism who is seen in F/U for the same. 1) Pituitary Macroadenoma: Patient had an MRI of the cervical spine in April 2018 which revealed enlargement of the pituitary gland. She then had a dedicated Pituitary MRI in May of 2018, and repeated again in October of 2018 which revealed a 1.5 cm Pituitary Macroadenoma. She was not referred to Endocrinology at that time, and did not have formal visual field testing or any hormonal evaluation. She then presented to her PCP with the complaint of intermittent double vision and excruciating headache. Referral was then placed for Endocrinology. After our initial evaluation she was referred to Dr. Lauren Cramer for transphenoidal resection as the mass did appear to be abutting the optic chiasm. This was thought to represent a sellar mass, not arising from the pituitary, but with some erosion through the diaphragm and compression of the optic chiasm. She underwent transphenoidal resection of this mass 04/03/2019 and was discharged from the hospital 04/04/2019. She had postoperative sodium and cortisol levels that were WNL, so she was not discharged on any glucocorticoid therapy. She did develop transient hyponatremia on POD #7, but this resolved spontaneously. She had a repeat Pituitary MRI completed 06/11/2019 which revealed a 0.6 x 0.7 x 0.9 cm residual focus of hypoenhancement that was thought to represent residual tumor. Pituitary MRI repeated 03/19/2020 which revealed growth to 1.3 cm. MRI was sent to Dr. Lauren Rodriguez who recommended reoperation vs stereotactic radiation. He opted to not undergo retreatment and to instead have her MRI repeated in 6 months time to reevaluate. She was due for this in September 2020, but she did not present for this as she was fearful it would represent growth. Repeat formal visual field testing was completed 11/26/2019 and was WNL. She had a repeat Pituitary MRI 11/26/2020 which revealed interval growth of the pituitary mass to 1.3 cm. There was abutting of the optic chiasm and the prechiasmatic optic nerves bilaterally. She did discuss this with Dr. Rodriguez, and she refused additional surgery. She did undergo stereotactic radiation in the spring. She had a repeat pituitary MRI December 2021, the results of which have not yet been received. She does report daily headaches which she states are worsening. She is scheduled for a formal visual field exam later this month. She reports extreme fatigue. Denies any orthostatic symptoms. Weight has been stable. Labs reveal am cortisol low. She completed cosyntropin stim testing yesterday, but results not yet available. Recent repeat MRI of the pituitary showed the lesion was stable. It was not abutting the optic chiasm. Laboratory shows show adrenal axis is intact. 2) Hyperparathyroidism: She does report having multiple bouts of kidney stones in the past. She had lithotrypsy for this. She had calcium checked in early 2018 and this was slightly higher than expected at 10.0, but prior to that it had always remained WNL. Vitamin D has always remained WNL. Her PTH has been mildly elevated, up to 89. She had a DEXA scan 02/19/2019 that revealed Osteopenia of the Hip and the Spine. No Forearm was completed. We repeated labs 10/18/2019 with a Total Calcium 10.0, Albumin 4.5, PTH 51, Vitamin D 39.4 and Creatinine WNL. She underwent a 3.5 gland surgical parathyroidectomy 03/25/[address] Bryan Cazares. Intraoperative PTH declined from 56-22. Calcium and PTH currently postoperative were WNL. She remains on Caltrate 600 mg PO daily. 3) Multinodular Thyroid: She does have a multinodular thyroid with multiple subcentimeter nodules bilaterally. She denies compressive symptoms. She does have hypothyroidism and takes Levothyroxine 75 mcg PO daily. FT4 and TT3 are WNL. Pituitary MRI: 11/26/2020 Multilobulated enhancing masses demonstrated along the anterior aspect of the sella turcica more prominent to the right of midline.? This is mildly increased in size from the previous examination now measuring approximately 10 mm transverse by 10 mm AP by 13 mm SI compared to 8 x 8 x 12 mm on the previous MRI.? A component extends into the suprasellar cistern abutting the optic chiasm, right greater than left, and abutting the prechiasmatic optic nerves bilaterally.? A partially cystic components at the anterior margin of the lesion slightly more pronounced on the left side and abuts the medial side of the left optic nerve.? On the right, both the inferior and medial surfaces of the optic nerves aren?t affected by the mass, although neither optic nerve is displaced by the mass.? The lesion extends into the right cavernous sinus abutting the cavernous internal carotid artery, similar to the previous examination.? The pituitary infundibulum is slightly deviated towards the left side but is normal in size.? Remaining pituitary tissue in the sella appears normal, and hypothalamus is normal.? DEXA: 12/22/2021 FINDINGS: AP SPINE L1-L3 (excluding L4): The data of L1-L4 has been changed to exclude the L4 vertebral body, because degenerative sclerosis at this level may cause overestimation of lumbar spine density. Current: BMD 1.097 g/cm2, Z-score 1.2, T-score -0.6, normal, 0.9% increase from previous, 4.8% increase from baseline (<5% change is not significant). Prior: BMD 1.087 g/cm2. Baseline: BMD 1.047 g/cm2. LEFT FEMUR, NECK: Current: BMD 0.823 g/cm2, Z-score 0.4, T-score -1.5, osteopenia. Prior: BMD 0.834 g/cm2. Baseline: BMD 0.847 g/cm2. LEFT FEMUR, TOTAL: Current: BMD 0.855 g/cm2, Z-score 0.6, T-score -1.2, osteopenia, 2.8% increase from previous, 1.3% decrease from baseline (<5% change is not significant). Prior: BMD 0.832 g/cm2. Baseline: BMD 0.866 g/cm2. Thyroid US: 12/22/2020 Right Thyroid Lobe: 3.7 x 1.4 x 0.9 cm, volume 2.5 mL. Left Thyroid Lobe: 3.6 x 1.2 x 0.7 cm, volume 1.6 mL. Isthmus: 0.3 cm in maximum AP dimension. THYROID PARENCHYMA NODULES: Thyroid gland has normal echotexture with exception of scattered small colloid cysts. The vascularity of the gland is normal. The colloid cysts in the mid and lower pole the right lobe, isthmus and inferior left lobe measure less than 0.4 cm.? A small, approximately 0.1 cm echogenic focus of apparent calcification is seen in the left lobe. This corresponds to the area of the colloid cyst that previously measured 0.8 cm. NODES: No lymphadenopathy is seen in the tissue surrounding the thyroid gland. Labs: Laboratory Tests 01/11/22 05/12/22 07:40 07:29 Sodium 142 Potassium 4.2 Creatinine 0.96 Estimated GFR 57 TSH 2.51 Free T4 1.14 Total T3 118 Estradiol Ultra LCMSMS 4 FSH 42.6 Luteinizing Hormone 18.6 Prolactin Undiluted 9.4 On 50 ug alt with 75 ug levothyroxine . C/O ear and back of head . Some blurry vision. Saw optho 3 wks ago [facility], [facility] Medical History Myocardial infarct Low serum cortisol level Renal cyst Renal stone Multinodular thyroid HLD (hyperlipidemia) CAD (coronary artery disease) GERD (gastroesophageal reflux disease) Hyperparathyroidism Hypothyroidism Vitamin D deficiency Osteopenia Pituitary macroadenoma Surgical History History of esophagogastroduodenoscopy (EGD) H/O colonoscopy Hx of squamous cell carcinoma excision Hx of parathyroidectomy History of pituitary surgery Hx of lithotripsy History of bladder surgery Family History Father Liver cancer Mother Pancreatic cancer Social History Alcohol intake: never Patient Tobacco Use Status: Never used Tobacco Physical Exam Vital Signs: Last Vital Signs Pulse 59 06/07/23 13:06 BP 130/62 06/07/23 13:06 BMI result Body Mass Index 29.2 Const Other: Thyroid gland is normal size weighs about 15 g. There are no thyroid nodules palpated. There is no visual field loss by gross confrontation Assessment & Plan Assessment & Plan (1) Multinodular thyroid: Code(s): E04.2 - Nontoxic multinodular goiter Category: Medical Plan: See plan for hypothyroidism (2) Hyperparathyroidism: Code(s): E21.3 - Hyperparathyroidism, unspecified Category: Medical Plan: Status post parathyroidectomy with normalization of calcium and vitamin-D (3) Hypothyroidism: Code(s): E03.9 - Hypothyroidism, unspecified Category: Medical Qualifiers: Hypothyroidism type: unspecified Qualified Code(s): E03.9 - Hypothyroidism, unspecified Plan: Clinically and biochemically euthyroid on levothyroxine 50 mcg Will continue current management (4) Pituitary macroadenoma: Code(s): D35.2 - Benign neoplasm of pituitary gland Category: Medical Plan: This 77-year-old white female with history of pituitary macroadenoma status post transsphenoidal surgery and subsequent radiotactic surgery. Recent MRI last yr shows stability in the size of the mass. Pituitary axis remains intact. Plan is to continue observation. Will repeat MRI of the pituitary considering patient's headache. Will also get a.m. cortisol possible Cortrosyn stimulation test if necessary as well as IGF-1 to screen for growth hormone deficiency Orders: Orders IGF-1 (Somatomedin C) Today D35.2 - Benign neoplasm of pituitary gland MR head/brain wo/w con Today D35.2 - Benign neoplasm of pituitary gland Cortisol Random Today D35.2 - Benign neoplasm of pituitary gland Coding Level of Care Code Est Pt Level 3 (44666) Diagnoses Multinodular thyroid E04.2 Hyperparathyroidism E21.3 Hypothyroidism, unspecified type E03.9 Hypothyroidism type: unspecified Pituitary macroadenoma D35.2
== END 2023-06-07 13:36 | disposition home or self-care (01) ==
PROVIDERS: PCP Internal Medicine; Visit Provider Internal Medicine Endocrinology, Diabetes & Metabolism
DX: E04.2 Nontoxic multinodular goiter (principal); E21.3 Hyperparathyroidism, unspecified; E03.9 Hypothyroidism, unspecified; D35.2 Benign neoplasm of pituitary gland
CPT/HCPCS: 99213

== ENCOUNTER → 2023-06-07 12:58 | Outpatient (BNVA) | payer MEDICARE, OTHER, SELFPAY | PROVIDERS: PCP Internal Medicine; Visit Provider Internal Medicine Endocrinology, Diabetes & Metabolism | DX: E04.2 Nontoxic multinodular goiter (principal); E21.3 Hyperparathyroidism, unspecified; E03.9 Hypothyroidism, unspecified; D35.2 Benign neoplasm of pituitary gland | CPT/HCPCS: 99212 ==

== ENCOUNTER 2023-07-12 07:06 | Outpatient (REF) | payer MEDICARE, OTHER, SELFPAY ==
[2023-07-12 09:28] LABS: Cortisol Random 12.7 ug/dL
[2023-07-18 17:08] LABS: IGF-1 (Somatomedin C) 47 ng/mL (34-245); IGF-1 Z Score (Female) -1.4 SD (-2.0 - +2.0)
== END 2023-07-12 07:07 | disposition home or self-care (01) ==
LOC: HO.LAB 07:06
PROVIDERS: PCP Internal Medicine; Visit Provider Internal Medicine Endocrinology, Diabetes & Metabolism
DX: D35.2 Benign neoplasm of pituitary gland (principal)
CPT/HCPCS: 36415; 82533; 84305

== ENCOUNTER 2023-07-27 12:05 | Outpatient (REF) | payer MEDICARE, OTHER, SELFPAY ==
--- NOTE | ~2023-07-27 | MR_ITS ---
EXAMINATION: MR BRAIN WITHOUT AND WITH CONTRAST CLINICAL INFORMATION: Benign neoplasm of pituitary gland, status post surgery with some residual adenoma, follow-up COMPARISON: MRI brain on 06/02/2022 TECHNIQUE: Multiplanar, multisequence MRI of the brain was obtained before and after the intravenous administration of 3.5 mL Gadavist. FINDINGS: Ventricles, sulci and cisterns are dilated. Multiple focal and patchy nonenhancing T2 hyperintense lesions are seen in bilateral frontal and parietal deep white matter, with the largest lesions seen in bilateral parietal deep white matter. No focal cerebral, and brainstem or cerebellar lesions with abnormal signal could be seen. Diffusion weighted images show no abnormal regional decrease in diffusion. Post-contrast images show no focal enhancing cerebral mass lesion. Optic chiasm is not displaced. Cerebellar tonsils position is normal. The postsurgical pituitary gland is seen mostly in posterior sella turcica. Pituitary infundibulum is not displaced. Residual hypoenhancing pituitary adenoma measures 0.8 cm in AP diameter, 1.1 cm in width, 0.8 cm in vertical height (previously 0.8 x 1.1 x 0.9 cm). MR/MR head/brain wo/w con IMPRESSION: 1. Unchanged age related cerebral atrophy and multifocal ischemic white matter disease compatible with microangiopathy. 2. No enhancing focal cerebral lesion or acute infarction is seen. 3. Unchanged status post debulking of pituitary tumor and no interval change in size of the anterior pituitary fossa residual adenoma.
[2023-07-27] MEDS: gadobutroL 2 ML VIAL IVPUSH ×2 (13:31→13:32)
== END 2023-07-27 12:06 | disposition home or self-care (01) ==
LOC: HO.MRI 12:05
PROVIDERS: Absent Provider Radiology Radiation Oncology; PCP Internal Medicine; Visit Provider Internal Medicine Endocrinology, Diabetes & Metabolism
DX: D35.2 Benign neoplasm of pituitary gland (principal)
CPT/HCPCS: 70553; A9585

== ENCOUNTER 2023-09-12 10:29 | Outpatient (REF) | payer MEDICARE, OTHER, SELFPAY ==
--- NOTE | ~2023-09-12 | XR_ITS ---
EXAMINATION: XR MASTOIDS CLINICAL INFORMATION: Pain COMPARISON: MR brain 07/27/2023 TECHNIQUE: 6 views of the mastoids were obtained. FINDINGS: Mastoid air cells appear grossly clear within the limitations of plain film radiographs. Multilevel degenerative disc disease in the visualized cervical spine. No displaced calvarial fracture appreciated. XR/XR mastoids min 3V IMPRESSION: 1. Mastoid air cells appear grossly clear within the limitations of plain film radiographs, however in the setting of worsening pain a temporal bone CT with IV contrast if clinically appropriate would be more sensitive for evaluation. 2. Multilevel degenerative disc disease in the visualized cervical spine. Electronically signed by: Denisse Espinoza MD 10/06/2023 03:21 PM EDT RP
[2023-09-12 10:54] LABS: MANUAL DIFF FLAG NO
[2023-09-12 12:30] LABS: Basophils Absolute Auto 0.1 X10*3/uL (0.0-0.2); Basophils Percent Auto 0.8 % (0-2); Eosinophils Absolute Auto 0.3 X10*3/uL (0.0-0.4); Eosinophils Percent Auto 3.9 % (0-4); Hematocrit 35.6 % (37.0-47.0); Hemoglobin 11.4 g/dl (12.0-16.0); Imm Gran Abs Auto 0.02 X10*3/uL (0.00-0.03); Imm Gran Pct Auto 0.3 % (0.0-0.4); Lymphocytes Absolute Auto 2.5 X10*3/uL (1.2-4.9); Lymphocytes Percent Auto 39.5 % (20-40); Mean Corpuscular Hemoglobin 27.2 pg (27.0-33.0); Mean Platelet Volume 10.5 fL (9.4-12.3); Monocytes Absolute Auto 0.6 X10*3/uL (0.1-1.2); Neutrophils Percent Auto 46.5 % (45-73); Platelet Count 236 X10*3/uL (160-400); Red Blood Count 4.19 X10*6/uL (4.20-5.50); Red Cell Distribution Width 14.3 % (11.0-16.0); White Blood Count 6.4 X10*3/uL (4.8-10.8)
[2023-09-12 13:07] LABS: Anion Gap 11 (12-20); Blood Urea Nitrogen 12 mg/dL (9-16); C Reactive Protein < 0.10 mg/dL (< or = 0.50); Calcium 9.6 mg/dL (8.4-10.2); Carbon Dioxide 29 mmol/L (22-29); Chloride 105 mmol/L (96-108); Estimated Glomerular Filt Rate 58; Glucose Random 99 mg/dL (60-115); Potassium 4.2 mmol/L (3.3-5.1); Sodium 141 mmol/L (135-145)
[2023-09-12 13:17] LABS: Erythrocyte Sedimentation Rate 18 MM/HR (0-20)
[2023-09-12 13:25] LABS: Free T4 (Free Thyroxine) 1.03 ng/dL (0.71-1.85); Thyroid Stimulating Hormone 0.47 uIU/mL (0.32-4.0)
== END 2023-09-12 10:30 | disposition home or self-care (01) ==
LOC: HO.LAB 10:29
PROVIDERS: PCP Internal Medicine; Visit Provider Internal Medicine
DX: H70.11 Chronic mastoiditis, right ear (principal); I10 Essential (primary) hypertension; E78.00 Pure hypercholesterolemia, unspecified
CPT/HCPCS: 36415; 70130; 80048; 84439; 84443; 85025; 85652; 86140

== ENCOUNTER 2023-09-13 09:37 | Outpatient (REF) | payer MEDICARE, OTHER, SELFPAY | END 2023-09-13 09:38 | disposition home or self-care (01) | LOC: HO.MAMMO 09:37 | PROVIDERS: PCP Internal Medicine; Visit Provider Internal Medicine | DX: Z12.31 Encounter for screening mammogram for malignant neoplasm of breast (principal) | CPT/HCPCS: 77063; 77067 ==

== ENCOUNTER → 2023-09-13 11:00 | Outpatient (BNV) | payer MEDICARE, OTHER, SELFPAY | PROVIDERS: PCP Internal Medicine; Visit Provider Radiology Diagnostic Radiology | DX: Z12.31 Encounter for screening mammogram for malignant neoplasm of breast (principal) | CPT/HCPCS: 77063; 77067 ==

== ENCOUNTER 2023-09-26 07:37 | Outpatient (REF) | payer MEDICARE, OTHER, SELFPAY ==
--- NOTE | ~2023-09-26 | US_ITS ---
EXAMINATION: US RETROPERITONEAL COMPLETE (RENAL) CLINICAL INFORMATION: Cyst of kidney. COMPARISON: 11/03/2022, 11/02/2021 and 08/24/2020 renal ultrasound. 10/04/2017 CT abdomen and pelvis. TECHNIQUE: Real-time imaging of the kidneys and bladder. Limited visualization due to bowel gas. FINDINGS: RIGHT KIDNEY: 9.8 x 3.5 x 5.1 cm (SAG x AP x TRV). No hydronephrosis. No renal calculi. Renal cortical thickness is normal. Limited visualization. LEFT KIDNEY: 9.5 x 5.4 x 3.5 cm (SAG x AP x TRV). No hydronephrosis. No renal calculi. Renal cortical thickness is normal. Limited visualization. 0.7 cm lower pole pole cyst with benign features. There is no indication for follow-up imaging. 0.4 cm mid pole cyst with mural echogenicity characteristic of calcification. There is no specific indication for additional imaging. US/US renal BI IMPRESSION: Left renal cysts with benign features. There is no indication for follow-up imaging. Electronically signed by: Leonor Fallon MD 10/17/2023 02:43 PM EDT
== END 2023-09-26 07:38 | disposition home or self-care (01) ==
LOC: HO.US 07:37
PROVIDERS: PCP Internal Medicine; Visit Provider Urology
DX: N28.1 Cyst of kidney, acquired (principal); Z87.442 Personal history of urinary calculi
CPT/HCPCS: 76775

== ENCOUNTER 2023-11-29 13:47 | Outpatient (AMB) | payer MEDICARE, OTHER, SELFPAY ==
--- NOTE | 2023-11-29 13:32 | MHC.OFFVIS ---
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 Allergies No Known Allergies [No Known Allergies*] Allergy (Verified 12/04/23 13:00) Medication List - Last Reconciled 11/29/23 by Elvie Richter MD aspirin 81 mg PO DAILY atorvastatin 40 mg PO DAILY [id number] 600 mg calcium- 800 unit-50 mg (Caltrate 600-D Plus Minerals) 1 tab PO DAILY levothyroxine 75 mcg PO .qod 90 days levothyroxine 50 mcg PO Q OTHER DAY metoprolol tartrate 12.5 mg PO BID omeprazole 20 mg PO DAILY HPI Comments Details: 11/29/23--78-year-old female here for 1 year follow-up with renal ultrasound for history of kidney stones and Bosniak type 2 cyst left kidney. Significant history of pituitary tumor, status post surgery and radiation therapy. History of left kidney stone status post left ESWL in the past. History of hyperparathyroidism status post surgery in review chart serum calciums have been within normal limits. The patient denies urinary symptoms. Reviewed renal ultrasound 09/26/23--Left renal cysts with benign features. There is no indication for follow-up imaging. Plan follow-up on a p.r.n. basis. [facility] Medical History Myocardial infarct Low serum cortisol level Renal cyst Renal stone Multinodular thyroid HLD (hyperlipidemia) CAD (coronary artery disease) GERD (gastroesophageal reflux disease) Hyperparathyroidism Hypothyroidism Vitamin D deficiency Osteopenia Pituitary macroadenoma Surgical History History of esophagogastroduodenoscopy (EGD) H/O colonoscopy Hx of squamous cell carcinoma excision Hx of parathyroidectomy History of pituitary surgery Hx of lithotripsy History of bladder surgery Family History Father Liver cancer Mother Pancreatic cancer Social History Alcohol intake: never Patient Tobacco Use Status: Never used Tobacco Results Reviewed Results Reviewed: Date of Service: 09/26/23 US RETROPERITONEAL COMPLETE (RENAL) CLINICAL INFORMATION: Cyst of kidney. COMPARISON: 11/03/2022, 11/02/2021 and 08/24/2020 renal ultrasound. 10/04/2017 CT abdomen and pelvis. TECHNIQUE: Real-time imaging of the kidneys and bladder. Limited visualization due to bowel gas. FINDINGS: RIGHT KIDNEY: 9.8 x 3.5 x 5.1 cm (SAG x AP x TRV). No hydronephrosis. No renal calculi. Renal cortical thickness is normal. Limited visualization. LEFT KIDNEY: 9.5 x 5.4 x 3.5 cm (SAG x AP x TRV). No hydronephrosis. No renal calculi. Renal cortical thickness is normal. Limited visualization. 0.7 cm lower pole pole cyst with benign features. There is no indication for follow-up imaging. 0.4 cm mid pole cyst with mural echogenicity characteristic of calcification. There is no specific indication for additional imaging. IMPRESSION: Left renal cysts with benign features. There is no indication for follow-up imaging. 11/03/22 ? US RETROPERITONEAL LIMITED (RENAL ONLY) FINDINGS: RIGHT KIDNEY: 9.2 x 4.3 x 5.0 cm (SAG x AP x TRV). No hydronephrosis. No renal calculi. Renal cortical thickness is normal. Limited visualization. LEFT KIDNEY: 9.1 x 5.4 x 3.5 cm (SAG x AP x TRV). Previously identified mid pole cyst is not visualized today. Left renal lower pole 0.6 x 0.6 x 0.6 cm cyst with benign features. No followup imaging is indicated. Left renal midpole cortical echogenic focus is characteristic of a tiny calcification. No hydronephrosis. Limited visualization. IMPRESSION: 1. Left renal midpole cortical echogenic focus is characteristic of a tiny calcification. 2. No hydronephrosis. Assessment & Plan Assessment & Plan (1) Renal cyst: Code(s): N28.1 - Cyst of kidney, acquired Category: Medical (2) History of kidney stones: Code(s): Z87.442 - Personal history of urinary calculi Category: Medical Plan no recurrent kidney stones renal cysts benign stable. FU prn Patient Instructions: The patient had an opportunity to ask questions regarding treatment plan. The patient expressed understanding and agreement with the above treatment plan. The patient is aware they should contact our office by phone for worsening of their current condition or the appearance of new symptoms. Compliance is encouraged with any medications and followup testing that is ordered. It is a privilege to be allowed the opportunity to participate in the urologic care of your patient. If you have any questions or concerns regarding treatment for the above conditions please do not hesitate to contact me. The office telephone contact is [phone]. This note is constructed in part using voice recognition software. While every effort has been made to ensure accuracy pocket and pulley machine operator errors may have been included. Yours sincerely, Elvie Richter MD Coding Level of Care Code Est Pt Level 3 (54525) Diagnoses Renal cyst N28.1 History of kidney stones Z87.442
== END 2023-11-29 15:26 | disposition home or self-care (01) ==
LOC: HO.HUSH 13:47
PROVIDERS: PCP Internal Medicine; Visit Provider Urology
DX: N28.1 Cyst of kidney, acquired (principal); Z87.442 Personal history of urinary calculi
CPT/HCPCS: 99213

== ENCOUNTER → 2023-11-29 13:47 | Outpatient (BNVA) | payer MEDICARE, OTHER, SELFPAY | PROVIDERS: PCP Internal Medicine; Visit Provider Urology | DX: N28.1 Cyst of kidney, acquired (principal); Z87.442 Personal history of urinary calculi | CPT/HCPCS: 99212 ==

== ENCOUNTER 2023-12-04 12:54 | Outpatient (AMB) | payer MEDICARE, OTHER, SELFPAY ==
[2023-12-04 12:56] VITALS: BP 120/68; PULSE 77; BMI 29.4
--- NOTE | 2023-12-04 12:56 | A.OFFVIS_ITS ---
Vital Signs 12/04/23 12:56 Height 4 ft 11 in Weight 145 lb 11.609 oz BMI 29.4 BP 120/68 Blood Pressure Location Lt brachial Position Sitting Pulse 77 Pulse Source Pulse Oximeter Intake Visit Reasons: f/u pituitary adenoma Intake Note: Patient present today for pituitary adenoma follow up visit. 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 . Today's visit is for follow-up of the pituitary adenoma 1) Pituitary Macroadenoma: Patient had an MRI of the cervical spine in April 2018 which revealed enlargement of the pituitary gland. She then had a dedicated Pituitary MRI in May of 2018, and repeated again in October of 2018 which revealed a 1.5 cm Pituitary Macroadenoma. She was not referred to Endocrinology at that time, and did not have formal visual field testing or any hormonal evaluation. She then presented to her PCP with the complaint of intermittent double vision and excruciating headache. Referral was then placed for Endocrinology. After our initial evaluation she was referred to Dr. Lauren Cramer for transphenoidal resection as the mass did appear to be abutting the optic chiasm. This was thought to represent a sellar mass, not arising from the pituitary, but with some erosion through the diaphragm and compression of the optic chiasm. She underwent transphenoidal resection of this mass 04/03/2019 and was discharged from the hospital 04/04/2019. She had postoperative sodium and cortisol levels that were WNL, so she was not discharged on any glucocorticoid therapy. She did develop transient hyponatremia on POD #7, but this resolved spontaneously. She had a repeat Pituitary MRI completed 06/11/2019 which revealed a 0.6 x 0.7 x 0.9 cm residual focus of hypoenhancement that was thought to represent residual tumor. Pituitary MRI repeated 03/19/2020 which revealed growth to 1.3 cm. MRI was sent to Dr. Lauren Rodriguez who recommended reoperation vs stereotactic radiation. He opted to not undergo retreatment and to instead have her MRI repeated in 6 months time to reevaluate. She was due for this in September 2020, but she did not present for this as she was fearful it would represent growth. Repeat formal visual field testing was completed 11/26/2019 and was WNL. She had a repeat Pituitary MRI 11/26/2020 which revealed interval growth of the pituitary mass to 1.3 cm. There was abutting of the optic chiasm and the prec hiasmatic optic nerves bilaterally. She did discuss this with Dr. Rodriguez, and she refused additional surgery. She did undergo stereotactic radiation in the spring. She had a repeat pituitary MRI December 2021, the results of which have not yet been received. She does report daily headaches which she states are worsening. She is scheduled for a formal visual field exam later this month. She reports extreme fatigue. Denies any orthostatic symptoms. Weight has been stable. Labs reveal am cortisol low. She completed cosyntropin stim testing yesterday, but results not yet available. Recent repeat MRI of the pituitary showed the lesion was stable. It was not abutting the optic chiasm. Laboratory shows show adrenal axis is intact. 2) Hyperparathyroidism: She does report having multiple bouts of kidney stones in the past. She had lithotrypsy for this. She had calcium checked in early 2018 and this was slightly higher than expected at 10.0, but prior to that it had always remained WNL. Vitamin D has always remained WNL. Her PTH has been mildly elevated, up to 89. She had a DEXA scan 02/19/2019 that revealed Osteopenia of the Hip and the Spine. No Forearm was completed. We repeated labs 10/18/2019 with a Total Calcium 10.0, Albumin 4.5, PTH 51, Vitamin D 39.4 and Creatinine WNL. She underwent a 3.5 gland surgical parathyroidectomy 03/25/[address] Bryan Cazares. Intraoperative PTH declined from 56-22. Calcium and PTH currently postoperative were WNL. She remains on Caltrate 600 mg PO daily. 3) Multinodular Thyroid: She does have a multinodular thyroid with multiple subcentimeter nodules bilaterally. She denies compressive symptoms. She does have hypothyroidism and takes Levothyroxine 75 mcg PO daily. FT4 and TT3 are WNL. Pituitary MRI: 11/26/2020 Multilobulated enhancing masses demonstrated along the anterior aspect of the sella turcica more prominent to the right of midline.? This is mildly increased in size from the previous examination now measuring approximately 10 mm transverse by 10 mm AP by 13 mm SI compared to 8 x 8 x 12 mm on the previous MRI.? A component extends into the suprasellar cistern abutting the optic chiasm, right greater than left, and abutting the prechiasmatic optic nerves bilaterally.? A partially cystic components at the anterior margin of the lesion slightly more pronounced on the left side and abuts the medial side of the left optic nerve.? On the right, both the inferior and medial surfaces of the optic nerves aren?t affected by the mass, although neither optic nerve is displaced by the mass.? The lesion extends into the right cavernous sinus abutting the cavernous internal carotid artery, similar to the previous examination.? The pituitary infundibulum is slightly deviated towards the left side but is normal in size.? Remaining pituitary tissue in the sella appears normal, and hypothalamus is normal.? DEXA: 12/22/2021 FINDINGS: AP SPINE L1-L3 (excluding L4): The data of L1-L4 has been changed to exclude the L4 vertebral body, because degenerative sclerosis at this level may cause overestimation of lumbar spine density. Current: BMD 1.097 g/cm2, Z-score 1.2, T-score -0.6, normal, 0.9% increase from previous, 4.8% increase from baseline (<5% change is not significant). Prior: BMD 1.087 g/cm2. Baseline: BMD 1.047 g/cm2. LEFT FEMUR, NECK: Current: BMD 0.823 g/cm2, Z-score 0.4, T-score -1.5, osteopenia. Prior: BMD 0.834 g/cm2. Baseline: BMD 0.847 g/cm2. LEFT FEMUR, TOTAL: Current: BMD 0.855 g/cm2, Z-score 0.6, T-score -1.2, osteopenia, 2.8% increase from previous, 1.3% decrease from baseline (<5% change is not significant). Prior: BMD 0.832 g/cm2. Baseline: BMD 0.866 g/cm2. Thyroid US: 12/22/2020 Right Thyroid Lobe: 3.7 x 1.4 x 0.9 cm, volume 2.5 mL. Left Thyroid Lobe: 3.6 x 1.2 x 0.7 cm, volume 1.6 mL. Isthmus: 0.3 cm in maximum AP dimension. THYROID PARENCHYMA NODULES: Thyroid gland has normal echotexture with exception of scattered small colloid cysts. The vascularity of the gland is normal. The colloid cysts in the mid and lower pole the right lobe, isthmus and inferior left lobe measure less than 0.4 cm.? A small, approximately 0.1 cm echogenic focus of apparent calcification is seen in the left lobe. This corresponds to the area of the colloid cyst that previously measured 0.8 cm. NODES: No lymphadenopathy is seen in the tissue surrounding the thyroid gland. Labs: Laboratory Tests 01/11/22 05/12/22 07:40 07:29 Sodium 142 Potassium 4.2 Creatinine 0.96 Estimated GFR 57 TSH 2.51 Free T4 1.14 Total T3 118 Estradiol Ultra LCMSMS 4 FSH 42.6 Luteinizing Hormone 18.6 Prolactin Undiluted 9.4 . Recent pituitary MRI showed no change from previous MRI . Optho recommended cataract surgery [facility] Medical History Myocardial infarct Low serum cortisol level Renal cyst Renal stone Multinodular thyroid HLD (hyperlipidemia) CAD (coronary artery disease) GERD (gastroesophageal reflux disease) Hyperparathyroidism Hypothyroidism Vitamin D deficiency Osteopenia Pituitary macroadenoma Surgical History History of esophagogastroduodenoscopy (EGD) H/O colonoscopy Hx of squamous cell carcinoma excision Hx of parathyroidectomy History of pituitary surgery Hx of lithotripsy History of bladder surgery Family History Father Liver cancer Mother Pancreatic cancer Social History Alcohol intake: never Patient Tobacco Use Status: Never used Tobacco Physical Exam Vital Signs: Last Vital Signs Pulse 77 12/04/23 12:56 BP 120/68 12/04/23 12:56 BMI result Body Mass Index 29.4 Assessment & Plan Assessment & Plan (1) Pituitary macroadenoma: Code(s): D35.2 - Benign neoplasm of pituitary gland Category: Medical Plan: This 77-year-old white female with history of pituitary macroadenoma status post transsphenoidal surgery and subsequent radiotactic surgery. Recent MRI last yr shows stability in the size of the mass. Pituitary axis remains intact normal cortisol. IGF-1 was low normal Plan is to continue observation. Will speak to patient about the low normal IGF-1 level and possibility of growth hormone replacement after testing. After long discussion with the patient, we decided to hold off on growth hormone testing at this time Coding Level of Care Code Est Pt Level 3 (70131) Diagnoses Pituitary macroadenoma D35.2
== END 2023-12-04 13:35 | disposition home or self-care (01) ==
PROVIDERS: PCP Internal Medicine; Visit Provider Internal Medicine Endocrinology, Diabetes & Metabolism
DX: D35.2 Benign neoplasm of pituitary gland (principal)
CPT/HCPCS: 99213

== ENCOUNTER → 2023-12-04 12:54 | Outpatient (BNVA) | payer MEDICARE, OTHER, SELFPAY | PROVIDERS: PCP Internal Medicine; Visit Provider Internal Medicine Endocrinology, Diabetes & Metabolism | DX: D35.2 Benign neoplasm of pituitary gland (principal); E21.3 Hyperparathyroidism, unspecified; M85.80 Other specified disorders of bone density and structure, unspecified site | CPT/HCPCS: 99212 ==

== ENCOUNTER 2024-01-26 08:32 | Outpatient (REF) | payer MEDICARE, OTHER, SELFPAY ==
--- NOTE | ~2024-01-26 | MM_ITS ---
EXAMINATION: BONE DENSITOMETRY CLINICAL INDICATION: Other specified disorders of bone density and structure. Asymptomatic menopausal state. COMPARISON: Previous BD dated 12/22/2021 and baseline BD dated 12/19/2007. TECHNIQUE: Using a [employer] DXA System (software version: 13.1) manufactured by [employer], dual-energy x-ray absorptiometry was performed of the lumbar spine and left hip. The images are of good technical quality. Summary results are attached. FINDINGS: LEFT FEMUR, NECK: Current: BMD 0.816 g/cm2, Z-score 0.4, T-score -1.6, osteopenia. Prior: BMD 0.823 g/cm2. Baseline: BMD 0.847 g/cm2. LEFT FEMUR, TOTAL: Current: BMD 0.834 g/cm2, Z-score 0.5, T-score -1.4, osteopenia, 2.5% decrease from previous, 3.7% from baseline (<5% change is not significant). Prior: BMD 0.855 g/cm2. Baseline: BMD 0.866 g/cm2. AP SPINE L1-L3 (excluding L4): The data of L1-L4 has been changed to exclude the L4 vertebral body, because at this level may cause overestimation of lumbar spine density. Current: BMD 1.052 g/cm2, Z-score 0.8, T-score -1.0, normal, 4.1% decrease from previous, 0.5% increase from baseline (<5% change is not significant). Prior: BMD 1.097 g/cm2. Baseline: BMD 1.047 g/cm2. IDENTIFIED RISK FACTORS: Menopause. HISTORY OF FRACTURE: None listed. MEDICATIONS: Calcium supplements or multivitamin, vitamin D. MM/XR DEXA axial skeleton IMPRESSION: 1. DIAGNOSIS: Osteopenia based on the lowest T-score value of -1.6 in the femoral neck applying World Health Organization criteria. 2. 10-YEAR FRACTURE RISK PREDICTION, FRAX: Major osteoporotic fracture (clinical spine, forearm, hip or shoulder) 7.1%. Hip fracture 1.6%. 3. Treatment Recommendations: NOF guidelines recommend consideration for treatment in postmenopausal women and men age 50 and older presenting with the following: -A hip or vertebral (clinical or morphometric) fracture. -T-score less than or equal to -2.5 at the femoral neck or spine after appropriate evaluation to exclude secondary causes. -Low bone mass at the hip or spine and a 10-year fracture probability by FRAX of greater than or equal to 3% for hip fracture or greater than or equal to 20% for major osteoporotic fracture based on the [place] adapted WHO algorithm. 4. Other Recommendations: All treatment decisions require clinical judgment and consideration of individual patient factors, including patient preferences, comorbidities, previous drug use, risk factors not captured in the FRAX model (e.g. frailty, falls, vitamin D deficiency, increased bone turnover, interval significant decline in bone density) and possible under or overestimation of fracture risk by FRAX. Additional medical evaluation for secondary cause of low bone mineral density may be appropriate. FUTURE SCAN RECOMMENDATION: People with diagnosed cases of osteoporosis or at high risk for fracture should have regular bone mineral density tests. For patients eligible for Medicare, routine testing is allowed once every 2 years. The testing frequency can be increased to one year for patients who have rapidly progressing disease, those who are receiving or discontinuing medical therapy to restore bone mass, or have additional risk factors. Electronically signed by: Francisca Nunez MD 01/26/2024 01:58 PM [facility]
== END 2024-01-26 08:33 | disposition home or self-care (01) ==
LOC: HO.MAMMO 08:32
PROVIDERS: Absent Provider Internal Medicine Endocrinology, Diabetes & Metabolism; PCP Internal Medicine; Visit Provider Internal Medicine
DX: M85.80 Other specified disorders of bone density and structure, unspecified site (principal); Z78.0 Asymptomatic menopausal state
CPT/HCPCS: 77080

== ENCOUNTER 2024-04-30 07:16 | Outpatient (REF) | payer MEDICARE, OTHER, SELFPAY ==
[2024-04-30 08:58] LABS: Free T4 (Free Thyroxine) 1.14 ng/dL (0.71-1.85); Thyroid Stimulating Hormone 0.87 uIU/mL (0.32-4.0)
== END 2024-04-30 07:17 | disposition home or self-care (01) ==
LOC: HO.LAB 07:16
PROVIDERS: Visit Provider Internal Medicine Endocrinology, Diabetes & Metabolism
DX: E03.9 Hypothyroidism, unspecified (principal)
CPT/HCPCS: 36415; 84439; 84443

== ENCOUNTER 2024-05-13 14:07 | Outpatient (AMB) | payer MEDICARE, OTHER, SELFPAY ==
[2024-05-13 14:14] VITALS: BP 116/74; PULSE 86; O2SAT 96; BMI 28.9
--- NOTE | 2024-05-13 14:14 | A.OFFVIS_ITS ---
Vital Signs 05/13/24 14:14 Height 4 ft 11 in Weight 143 lb 4.807 oz BMI 28.9 BP 116/74 Blood Pressure Location Rt brachial Position Sitting Pulse 86 Pulse Source Pulse Oximeter Pulse Oximetry (%) 96 Oxygen Delivery Method Room Air Intake Visit Reasons: f/u pituitary adenoma Intake Note: Patient present today for pituitary adenoma follow up visit. 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 Accompanied by: Self / Same As Patient Allergies No Known Allergies [No Known Allergies*] Allergy (Verified 05/13/24 14:15) Medication List - Last Reconciled 05/13/24 by Alex Rodriguez MD aspirin 81 mg PO DAILY atorvastatin 40 mg PO DAILY [id number] 600 mg calcium- 800 unit-50 mg (Caltrate 600-D Plus Minerals) 1 tab PO DAILY levothyroxine 75 mcg PO Q OTHER DAY levothyroxine 50 mcg PO .qod metoprolol tartrate 12.5 mg PO BID omeprazole 40 mg PO DAILY sucralfate 1 g PO BID HPI Comments Details: 79 YO Female with PMHx Pituitary Macroadenoma, Osteopenia, Hyperparathyroidism who is seen in F/U for the same. . Today's visit is for follow-up of the pituitary adenoma 1) Pituitary Macroadenoma: Patient had an MRI of the cervical spine in April 2018 which revealed enlargement of the pituitary gland. She then had a dedicated Pituitary MRI in May of 2018, and repeated again in October of 2018 which revealed a 1.5 cm Pituitary Macroadenoma. She was not referred to Endocrinology at that time, and did not have formal visual field testing or any hormonal evaluation. She then presented to her PCP with the complaint of intermittent double vision and excruciating headache. Referral was then placed for Endocrinology. After our initial evaluation she was referred to Dr. Lauren Cramer for transphenoidal resection as the mass did appear to be abutting the optic chiasm. This was thought to represent a sellar mass, not arising from the pituitary, but with some erosion through the diaphragm and compression of the optic chiasm. She underwent transphenoidal resection of this mass 04/03/2019 and was discharged from the hospital 04/04/2019. She had postoperative sodium and cortisol levels that were WNL, so she was not discharged on any glucocorticoid therapy. She did develop transient hyponatremia on POD #7, but this resolved spontaneously. She had a repeat Pituitary MRI completed 06/11/2019 which revealed a 0.6 x 0.7 x 0.9 cm residual focus of hypoenhancement that was thought to represent residual tumor. Pituitary MRI repeated 03/19/2020 which revealed growth to 1.3 cm. MRI was sent to Dr. Lauren Rodriguez who recommended reoperation vs stereotactic radiation. He opted to not undergo retreatment and to instead have her MRI repeated in 6 months time to reevaluate. She was due for this in September 2020, but she did not present for this as she was fearful it would represent growth. Repeat formal visual field testing was completed 11/26/2019 and was WNL. She had a repeat Pituitary MRI 11/26/2020 which revealed interval growth of the pituitary mass to 1.3 cm. There was abutting of the optic chiasm and the prechiasmatic optic nerves bilaterally. She did discuss this with Dr. Jessica mccracken, and she refused additional surgery. She did undergo stereotactic radiation in the spring. She had a repeat pituitary MRI December 2021, the results of which have not yet been received. She does report daily headaches which she states are worsening. She is scheduled for a formal visual field exam later this month. She reports extreme fatigue. Denies any orthostatic symptoms. Weight has been stable. Labs reveal am cortisol low. She completed cosyntropin stim testing yesterday, but results not yet available. Recent repeat MRI of the pituitary showed the lesion was stable. It was not abutting the optic chiasm. Laboratory shows show adrenal axis is intact. 2) Hyperparathyroidism: She does report having multiple bouts of kidney stones in the past. She had lithotrypsy for this. She had calcium checked in early 2018 and this was slightly higher than expected at 10.0, but prior to that it had always remained WNL. Vitamin D has always remained WNL. Her PTH has been mildly elevated, up to 89. She had a DEXA scan 02/19/2019 that revealed Osteopenia of the Hip and the Spine. No Forearm was completed. We repeated labs 10/18/2019 with a Total Calcium 10.0, Albumin 4.5, PTH 51, Vitamin D 39.4 and Creatinine WNL. She underwent a 3.5 gland surgical parathyroidectomy 03/25/[address] Bryan Cazares. Intraoperative PTH declined from 56-22. Calcium and PTH currently postoperative were WNL. She remains on Caltrate 600 mg PO daily. 3) Multinodular Thyroid: She does have a multinodular thyroid with multiple subcentimeter nodules bilaterally. She denies compressive symptoms. She does have hypothyroidism and takes Levothyroxine 75 mcg PO daily. FT4 and TT3 are WNL. Pituitary MRI: 11/26/2020 Multilobulated enhancing masses demonstrated along the anterior aspect of the sella turcica more prominent to the right of midline.? This is mildly increased in size from the previous examination now measuring approximately 10 mm transverse by 10 mm AP by 13 mm SI compared to 8 x 8 x 12 mm on the previous MRI.? A component extends into the suprasellar cistern abutting the optic chiasm, right greater than left, and abutting the prechiasmatic optic nerves bilaterally.? A partially cystic components at the anterior margin of the lesion slightly more pronounced on the left side and abuts the medial side of the left optic nerve.? On the right, both the inferior and medial surfaces of the optic nerves aren?t affected by the mass, although neither optic nerve is displaced by the mass.? The lesion extends into the right cavernous sinus abutting the cavernous internal carotid artery, similar to the previous examination.? The pituitary infundibulum is slightly deviated towards the left side but is normal in size.? Remaining pituitary tissue in the sella appears normal, and hypothalamus is normal.? DEXA: 12/22/2021 FINDINGS: AP SPINE L1-L3 (excluding L4): The data of L1-L4 has been changed to exclude the L4 vertebral body, because degenerative sclerosis at this level may cause overestimation of lumbar spine density. Current: BMD 1.097 g/cm2, Z-score 1.2, T-score -0.6, normal, 0.9% increase from previous, 4.8% increase from baseline (<5% change is not significant). Prior: BMD 1.087 g/cm2. Baseline: BMD 1.047 g/cm2. LEFT FEMUR, NECK: Current: BMD 0.823 g/cm2, Z-score 0.4, T-score -1.5, osteopenia. Prior: BMD 0.834 g/cm2. Baseline: BMD 0.847 g/cm2. LEFT FEMUR, TOTAL: Current: BMD 0.855 g/cm2, Z-score 0.6, T-score -1.2, osteopenia, 2.8% increase from previous, 1.3% decrease from baseline (<5% change is not significant). Prior: BMD 0.832 g/cm2. Baseline: BMD 0.866 g/cm2. Thyroid US: 12/22/2020 Right Thyroid Lobe: 3.7 x 1.4 x 0.9 cm, volume 2.5 mL. Left Thyroid Lobe: 3.6 x 1.2 x 0.7 cm, volume 1.6 mL. Isthmus: 0.3 cm in maximum AP dimension. THYROID PARENCHYMA NODULES: Thyroid gland has normal echotexture with exception of scattered small colloid cysts. The vascularity of the gland is normal. The colloid cysts in the mid and lower pole the right lobe, isthmus and inferior left lobe measure less than 0.4 cm.? A small, approximately 0.1 cm echogenic focus of apparent calcification is seen in the left lobe. This corresponds to the area of the colloid cyst that previously measured 0.8 cm. NODES: No lymphadenopathy is seen in the tissue surrounding the thyroid gland. Labs: Laboratory Tests 01/11/22 05/12/22 07:40 07:29 Sodium 142 Potassium 4.2 Creatinine 0.96 Estimated GFR 57 TSH 2.51 Free T4 1.14 Total T3 118 Estradiol Ultra LCMSMS 4 FSH 42.6 Luteinizing Hormone 18.6 Prolactin Undiluted 9.4 . MRI last yr showed no change from previous MRI . She also has Santosh's thyroiditis and takes 50 mcg alt with 75 ug levothyroxine for primary hypothyroidism The patient is a 79-year-old female presenting with dizziness and concerns regarding her pituitary gland stability. The dizziness is continuous, unrelated to postural changes, and the patient experiences a substantial loss of appetite resulting in a minimal dietary intake without notable weight changes. She has a history of hypopituitarism and underwent stereotactic radiosurgery, with an MRI last conducted a year prior showing stability, primarily focusing on the pituitary. The patient also had previous evaluations for ear-related issues that could be implicated in her dizziness but were not fully discussed. [facility] Medical History Myocardial infarct Low serum cortisol level Renal cyst Renal stone Multinodular thyroid HLD (hyperlipidemia) CAD (coronary artery disease) GERD (gastroesophageal reflux disease) Hyperparathyroidism Hypothyroidism Vitamin D deficiency Osteopenia Pituitary macroadenoma Surgical History History of esophagogastroduodenoscopy (EGD) H/O colonoscopy Hx of squamous cell carcinoma excision Hx of parathyroidectomy History of pituitary surgery Hx of lithotripsy History of bladder surgery Family History Father Liver cancer Mother Pancreatic cancer Social History Alcohol intake: never Patient Tobacco Use Status: Never used Tobacco Physical Exam Vital Signs: Last Vital Signs Pulse 86 05/13/24 14:14 BP 116/74 05/13/24 14:14 Pulse Ox 96 05/13/24 14:14 Oxygen Delivery Method Room Air 05/13/24 14:14 BMI result Body Mass Index 28.9 Const Other: No visual field loss by confrontation Assessment & Plan Assessment & Plan (1) Pituitary macroadenoma: Code(s): D35.2 - Benign neoplasm of pituitary gland Category: Medical Plan: This 77-year-old white female with history of pituitary macroadenoma status post transsphenoidal surgery and subsequent radiotactic surgery. Recent MRI last yr shows stability in the size of the mass. Pituitary axis remains intact normal cortisol. 1. Dizziness: The symptoms necessitate further evaluation through an updated brain MRI focusing on the pituitary to assess any etiological connections to past stereotactic radiosurgery. Consideration for ENT referral by PCP to evaluate and exclude any otological causes of vertigo is also paramount in ruling out peripheral vestibular disorders. 2. Hypopituitarism: Continue with the current levothyroxine regimen of alternating dosages. Planned laboratory evaluations will include pituitary function and santa's helper cortisol to assess adrenal function adequacy. Potential ACTH stimulation testing may be required if hormonal insufficiencies are suspected. 3. Decreased Appetite: While not exhibiting weight loss, this symptom's correlation with pituitary function requires careful endocrine monitoring. Maintain levothyroxine titration as current levels are sufficient, and follow-up on cortisol levels may further elucidate adrenal contributions to the decreased appetite. During our discussion, I considered the possibility of stereotactic radiosurgery contributing to dizziness through pituitary or KETTLE ROOM HELPER effects. Given the chronic, non-positional nature of the dizziness, I recommended an MRI to reassess the brain and pituitary gland. We will check your cortisol levels in the morning, aiming for readings over 10 to rule out adrenal insufficiency. If your cortisol is low, an ACTH stimulation test may be indicated. We also discussed evaluating potential ENT causes for dizziness and included recommendations on making an appointment with your primary care provider to facilitate ENT and neurological referrals as necessary. - Schedule and undergo a brain MRI with a focus on the pituitary gland. - Obtain morning cortisol levels; you do not need to fast for this test. - Continue taking your medications as prescribed: Alternate daily doses of 50 mg and 75 mg levothyroxine. - Make an appointment with your primary care provider ahead of your scheduled visit if symptoms worsen to discuss potential ENT evaluation. - Stay vigilant for any changes, especially in dizziness severity, and contact me if new or concerning symptoms arise. T The patient had an opportunity to ask questions regarding treatment plan. The patient expressed understanding and agreement with the above treatment plan. Patient was informed and verbally consented to the use of an ambient scribe for clinic note documentation during this visit. Orders: Orders Cortisol Random Today D35.2 - Benign neoplasm of pituitary gland MR head/brain wo/w con Today D35.2 - Benign neoplasm of pituitary gland Coding Level of Care Code Est Pt Level 3 (09141) Diagnoses Pituitary macroadenoma D35.2
== END 2024-05-13 14:46 | disposition home or self-care (01) ==
LOC: HO.ENCR 14:08
PROVIDERS: PCP Internal Medicine; Visit Provider Internal Medicine Endocrinology, Diabetes & Metabolism
DX: D35.2 Benign neoplasm of pituitary gland (principal)
CPT/HCPCS: 99213

== ENCOUNTER → 2024-05-13 14:07 | Outpatient (BNVA) | payer MEDICARE, OTHER, SELFPAY | PROVIDERS: PCP Internal Medicine; Visit Provider Internal Medicine Endocrinology, Diabetes & Metabolism | DX: D35.2 Benign neoplasm of pituitary gland (principal) | CPT/HCPCS: 99212 ==

== ENCOUNTER 2024-05-18 07:13 | Outpatient (REF) | payer MEDICARE, OTHER, SELFPAY ==
[2024-05-18 10:45] LABS: Cortisol Random 11.5 ug/dL
== END 2024-05-18 07:14 | disposition home or self-care (01) ==
LOC: HO.LAB 07:13
PROVIDERS: PCP Internal Medicine; Visit Provider Internal Medicine Endocrinology, Diabetes & Metabolism
DX: D35.2 Benign neoplasm of pituitary gland (principal)
CPT/HCPCS: 36415; 82533

== ENCOUNTER 2024-05-25 12:24 | Outpatient (REF) | payer MEDICARE, OTHER, SELFPAY ==
--- NOTE | ~2024-05-25 | MR_ITS ---
EXAMINATION: MR BRAIN/PITUITARY PROTOCOL WITHOUT AND WITH CONTRAST CLINICAL INFORMATION: Benign neoplasm of the pituitary gland. COMPARISON: July 27, 2023. TECHNIQUE: Multiplanar, multisequence MRI of the brain/pituitary protocol was obtained before and after the intravenous administration of 3.25 mL [(Gadavist). No reported immediate complications. FINDINGS: Post surgical/treatment changes, sella turcica and transsphenoidal/paranasal sinuses on the left. Intrinsic hyperintense T1 signal in the anterior superior and lateral inferior planum sphenoidale and sella turcica region, respectively, likely related to fat pad. There is a focal, 6 mm heterogeneous enhancement in the superior anterior sella/suprasellar region. The residual pituitary gland is to the left midline sella turcica measuring 95 x 62 x 89 mm. The pituitary stalk is slightly to the left of the sella turcica and measures 2 mm in maximal thickness. The optic chiasm is intact and normal. Flow-void signal within the cavernous supraclinoid segments is normal. No enhancing lesion within the cavernous sinuses. No acute intracranial hemorrhage, mass effect, midline shift, hydrocephalus or herniation. No restricted diffusion. Bilateral multifocal patchy and confluent deep periventricular white matter hyperintense T2 FLAIR signal involving centrum semiovale and west radiata. Old lacunar infarcts in the basal ganglia. Prominence of the extra-axial CSF spaces cerebral sulci and ventricles. Prominent Virchow-Curtis spaces in inferior basal ganglia region. Craniocervical junction is intact and normal. Flow-void signal within the main cerebral vessels is normal. MR/MR head/brain wo/w con IMPRESSION: Post surgical/treatment changes with the residual 6 mm enhancing lesion anterior superior sellar/suprasellar region. Slight tethered to the left pituitary stalk. White matter disease likely related to small vessel occlusive disease. Electronically signed by: Rafa Mccoy MD 05/28/2024 08:41 AM EDT
[2024-05-25] MEDS: gadobutroL 7.5 ML VIAL IVPUSH (13:05)
== END 2024-05-25 12:25 | disposition home or self-care (01) ==
LOC: HO.MRI 12:24
PROVIDERS: PCP Internal Medicine; Visit Provider Internal Medicine Endocrinology, Diabetes & Metabolism
DX: D35.2 Benign neoplasm of pituitary gland (principal)
CPT/HCPCS: 70553; A9585

== ENCOUNTER → 2024-05-25 12:24 | Outpatient (BNV) | payer MEDICARE, OTHER, SELFPAY | PROVIDERS: PCP Internal Medicine; Visit Provider Radiology Diagnostic Radiology | DX: D35.2 Benign neoplasm of pituitary gland (principal); Z98.890 Other specified postprocedural states | CPT/HCPCS: 70553 ==

== ENCOUNTER → 2024-06-21 09:04 | Outpatient (REF) | payer MEDICARE, OTHER, SELFPAY ==
--- NOTE | ~2024-06-21 | NM_ITS ---
Lexiscan Myocardial perfusion study Indication: Atherosclerotic cardiovascular disease to evaluate for myocardial ischemia Technique: The patient was brought in for a Lexiscan perfusion study on 06/21/2024 and was injected 0.4 mg of Lexiscan intravenously. Within a minute of this injection 25 mCi of sestamibi was given intravenously. Images were obtained using the SPECT gamma camera interlaced with the gating device. Images were obtained in supine position. Resting perfusion study was performed on 06/24/2024. Patient was administered 25 mCi of sestamibi intravenously at rest. Images were then obtained in supine position. Images obtained without without CT attenuation. Total DLP 69 mGy-cm. Images were processed with the software and compared side to side in short axis, horizontal long axis and vertical long axis views. Findings: The stress perfusion study showed nonattenuated images show normal uptake ordered images in all segments of the LV myocardium. Attenuated corrected images show mildly reduced uptake in the apex of the LV myocardium. The gated study shows normal LV systolic function with calculated LVEF of 69%. LV cavity is normal in size. The gated study shows normal systolic wall thickening and contraction of segments. Resting study shows no change in perfusion pattern compared to stress perfusion study. Gating at rest reveals normal systolic wall motion with ejection fraction at 69%. The findings are consistent with normal myocardial perfusion. NM/NM cesar perf SPECT rest & str Impression: 1. Myocardial perfusion imaging study shows normal myocardial perfusion 2. Gated LVEF is 69% 3. Transient ischemic dilatation not present Nondiagnostic changes on EKG. Electronically signed by: Yevgeniy Lewis MD 06/24/2024 05:21 PM EDT
--- NOTE | 2024-06-21 09:08 | CA_ITS ---
Acquisition Time: 2024-06-21 09:35:24 Total Exercise Time: 00:02:00 Test Indications: CP,Dyspnea,Fatigue Medications: SEE H&P Protocol: LEXISCAN Max HR: 110 BPM 76% of Pred: 143 BPM Max BP: 140/88 mmHG Max Work Load: 1.0 METS Pharmacological stress test with Lexiscan while pt swings her legs in chair, with reports of 9/10 mid chest pressure and headache, without any arrythmias, with normotensive response to injection. Nondiagnostic EKG for ischemia. In recovery, pt treated with IVP Aminophylline 75 mg to reverse Lexiscan, after which pt feeling back to baseline. Nuclear images pending. Test reviewed with Dr. Bryan. Referred By: Mata White Electronically Signed By: Raffaele Cohen
== END ==
LOC: HO.CARD 09:04
PROVIDERS: PCP Internal Medicine; Visit Provider Internal Medicine Cardiovascular Disease
DX: I25.10 Atherosclerotic heart disease of native coronary artery without angina pectoris (principal)
CPT/HCPCS: 78452; 93017; A9500; J0280; J2785

== ENCOUNTER → 2024-06-21 09:08 | Outpatient (BNV) | payer MEDICARE, OTHER, SELFPAY | PROVIDERS: PCP Internal Medicine | DX: R07.9 Chest pain, unspecified (principal) | CPT/HCPCS: 78452; 93016; 93018 ==

== ENCOUNTER 2024-06-28 13:16 | Outpatient (AMB) | payer MEDICARE, OTHER, SELFPAY ==
--- NOTE | 2024-06-28 13:20 | MHC.PC.OV ---
Vital Signs 06/28/24 13:25 Height 4 ft 11 in Weight 143 lb BMI 28.9 BP 130/90 H Blood Pressure Location Lt brachial Position Sitting Respiration 16 Pulse 67 Pulse Source Pulse Oximeter Temp 98.4 F Temp Source Temporal Artery Scan Pulse Oximetry (%) 98 Oxygen Delivery Method Room Air Intake Visit Reasons: Routine Intake Note: patient here for routine follow up Metabolic Specialist Required: No Is last menstrual period known: No Post menopausal: No Patient : No Allergies No Known Allergies [No Known Allergies*] Allergy (Verified 06/28/24 13:23) Tobacco use date assessed: 06/28/24 Fall risk assessment: No Falls in past year Last assessed Fall Risk: 06/28/24 Dental Screening Dental Screen Date: 06/28/24 Did you have a dental visit in the last 12 months?: Yes Did you have a dental problem in the last 6 months where you did not have access to dental care?: No Was dental information given to patient?: Patient has dentist HPI HPI Comments History of Present Illness Details 79 YO Female with PMHx CAD s/p [place] hypertension, hypothyroid, GERD, IBS, anxiety, Pituitary Macroadenoma, osteopenia, hyperparathyroidism presenting for follow up. Last seen by PCP in March. CV: metoprolol, atorvastatin, ASA. Recent normal stress test. Seeing cardiology later this month Endocrine: Follows with Dr Rodriguez. TSH has been stable Mammo-08/2023 DXA-01/2024 Colonoscopy 09/2021-no further needed ROS CONSTITUTIONAL: Denies weight loss, fever and chills. HEENT: Denies changes in vision and hearing. RESPIRATORY: Denies SOB and cough. CV: Denies palpitations and CP GI: Denies abdominal pain, nausea, vomiting and diarrhea. : Denies dysuria and urinary frequency. MSK: Denies new myalgia and joint pain. SKIN: Denies rash and pruritus. NEUROLOGICAL: Denies headache PSYCHIATRIC: Denies recent changes in mood. PHYSICAL EXAM: GENERAL: Alert and oriented x 3. NAD EYES: EOMI. Anicteric. HENT: Moist mucous membranes. No scleral icterus. No cervical lymphadenopathy. LUNGS: Clear to auscultation bilaterally. CARDIOVASCULAR: Regular rate and rhythm. No murmur. No JVD. ABDOMEN: Soft, non-tender +bs EXTREMITIES: No edema. Non-tender. SKIN: No rashes or lesions. Warm. NEUROLOGIC: No focal neurological deficits. CN II-XII grossly intact PSYCHIATRIC: Cooperative. Appropriate mood and affect [facility] Medical History (Updated 06/28/24 @ 13:56 by Sarah Valentino MD) Myocardial infarct Low serum cortisol level Renal cyst Renal stone Multinodular thyroid HLD (hyperlipidemia) CAD (coronary artery disease) GERD (gastroesophageal reflux disease) Hyperparathyroidism Hypothyroidism Vitamin D deficiency Osteopenia Pituitary macroadenoma Surgical History (Updated 06/13/24 @ 11:49 by Shiela Ibrahim) History of esophagogastroduodenoscopy (EGD) H/O colonoscopy (~09/14/21) Hx of squamous cell carcinoma excision Hx of parathyroidectomy History of pituitary surgery Hx of lithotripsy History of bladder surgery Family History Father Liver cancer Mother Pancreatic cancer Social History Housing: House Alcohol intake: never Patient Tobacco Use Status: Never used Tobacco e-Cigarette/Vaping Use: Never Used Second Hand Smoke Exposure: No service: No Current occupational status: retired Cognitive needs: No Hearing needs: No Vision needs: Yes Physical exam (Primary Care) Vital Signs: Last Vital Signs Temp 98.4 F 06/28/24 13:25 Pulse 67 06/28/24 13:25 Resp 16 06/28/24 13:25 BP 130/90 H 06/28/24 13:25 Pulse Ox 98 06/28/24 13:25 Oxygen Delivery Method Room Air 06/28/24 13:25 BMI result Body Mass Index 28.9 Tobacco/Smoking Status: Tobacco use Status Tobacco use date assessed 06/28/24 06/28/24 13:26 Patient Tobacco Use Status Never used Tobacco 06/28/24 13:21 e-Cigarette/Vaping Use Never Used 06/28/24 13:26 Coding Level of Care Code New Pt Level 4 (54169) Diagnoses Hyperparathyroidism E21.3 Multinodular thyroid E04.2 Assessment & Plan Assessment & Plan (1) Hyperparathyroidism: Code(s): E21.3 - Hyperparathyroidism, unspecified Category: Medical (2) Multinodular thyroid: Code(s): E04.2 - Nontoxic multinodular goiter Category: Medical Plan 79 year old to establish care Past medical, surgical, social reviewed Chronic medical conditions stable BP controlled-reviewed stress test. Upcoming cardiology Continue follow up endocrine Orders: Orders Complete Blood Count Auto Diff 5 Months E03.9 - Hypothyroidism, unspecified, E55.9 - Vitamin D deficiency, unspecified, I21.9 - Acute myocardial infarction, unspecified, Z13.0 - Encounter for screening for diseases of the blood and blood-forming organs and certain disorders involving the immune mechanism Comprehensive Met. Panel 5 Months E03.9 - Hypothyroidism, unspecified, E55.9 - Vitamin D deficiency, unspecified, I21.9 - Acute myocardial infarction, unspecified, Z13.0 - Encounter for screening for diseases of the blood and blood-forming organs and certain disorders involving the immune mechanism TSH reflex Free T4 5 Months E03.9 - Hypothyroidism, unspecified, E55.9 - Vitamin D deficiency, unspecified, I21.9 - Acute myocardial infarction, unspecified, Z13.0 - Encounter for screening for diseases of the blood and blood-forming organs and certain disorders involving the immune mechanism Lipid Panel 5 Months E03.9 - Hypothyroidism, unspecified, E55.9 - Vitamin D deficiency, unspecified, I21.9 - Acute myocardial infarction, unspecified, Z13.0 - Encounter for screening for diseases of the blood and blood-forming organs and certain disorders involving the immune mechanism MM screening mammo BI Today Z12.31 - Encounter for screening mammogram for malignant neoplasm of breast Medications: New atorvastatin 20 mg PO BEDTIME 90 tabs 3RF metoprolol tartrate 12.5 mg (1/2 x 25 mg) PO BID 180 tabs 3RF omeprazole 40 mg PO DAILY 90 caps 3RF
[2024-06-28 13:25] VITALS: BP 130/90; PULSE 67; RESP 16; TEMP 36.9; O2SAT 98; BMI 28.9
== END 2024-06-28 13:54 | disposition home or self-care (01) ==
LOC: HO.HMCHD 13:17
PROVIDERS: PCP Internal Medicine; Visit Provider Internal Medicine
DX: E21.3 Hyperparathyroidism, unspecified (principal); E04.2 Nontoxic multinodular goiter

== ENCOUNTER → 2024-06-28 13:16 | Outpatient (BNVA) | payer MEDICARE, OTHER, SELFPAY | PROVIDERS: PCP Internal Medicine; Visit Provider Internal Medicine | DX: E21.3 Hyperparathyroidism, unspecified (principal); E04.2 Nontoxic multinodular goiter; E03.9 Hypothyroidism, unspecified; E55.9 Vitamin D deficiency, unspecified; I21.9 Acute myocardial infarction, unspecified | CPT/HCPCS: 99202 ==

== ENCOUNTER 2024-07-19 08:50 | Outpatient (AMB) | payer MEDICARE, OTHER, SELFPAY ==
--- NOTE | 2024-07-19 08:47 | A.OFFPC_ITS ---
Vital Signs 07/19/24 09:06 Height 4 ft 11 in Weight 144 lb BMI 29.1 BP 130/76 Blood Pressure Location Lt brachial Position Sitting Pulse 69 Pulse Source Pulse Oximeter Temp 97.7 F Temp Source Axillary Intake Visit Reasons: Dr Emily Nathan eye Surg Music Pastor Required: No Accompanied by: Self / Same As Patient Allergies No Known Allergies [No Known Allergies*] Allergy (Verified 07/19/24 08:57) Tobacco use date assessed: 07/19/24 Fall risk assessment: No Falls in past year Last assessed Fall Risk: 07/19/24 Dental Screening Dental Screen Date: 07/19/24 Did you have a dental visit in the last 12 months?: Yes Did you have a dental problem in the last 6 months where you did not have access to dental care?: No HPI HPI Comments History of Present Illness Details 79 year old female with PMHx CAD s/p NE hypertension, hypothyroid, GERD, IBS, anxiety, Pituitary Macroadenoma, osteopenia, hyperparathyroidism presenting for preoperative exam-plan for left cataract surgery by Dr Diaz on 08/01 and 08/29 Has tolerated anesthesia in the past METs adequate-walks frequently CV: metoprolol, atorvastatin, ASA. Recent normal stress test 06/2024. BP has been good 109-126/59-65. Was having chest discomfort attributed to reflux. Has restarted sucralfate Endocrine: Follows with Dr Rodriguez. TSH has been stable Mammo-08/2023 DXA-01/2024 Colonoscopy 09/2021-no further needed ROS CONSTITUTIONAL: Denies weight loss, fever and chills. HEENT: Denies changes in vision and hearing. RESPIRATORY: Denies SOB and cough. CV: Denies palpitations and CP GI: Denies abdominal pain, nausea, vomiting and diarrhea. : Denies dysuria and urinary frequency. MSK: Denies new myalgia and joint pain. SKIN: Denies rash and pruritus. NEUROLOGICAL: Denies headache PSYCHIATRIC: Denies recent changes in mood. PHYSICAL EXAM: GENERAL: Alert and oriented x 3. NAD EYES: EOMI. Anicteric. HENT: Moist mucous membranes. No scleral icterus. No cervical lymphadenopathy. LUNGS: Clear to auscultation bilaterally. CARDIOVASCULAR: Regular rate and rhythm. No murmur. No JVD. ABDOMEN: Soft, non-tender +bs EXTREMITIES: No edema. Non-tender. SKIN: No rashes or lesions. Warm. NEUROLOGIC: No focal neurological deficits. CN II-XII grossly intact PSYCHIATRIC: Cooperative. Appropriate mood and affect [facility] Medical History Myocardial infarct Low serum cortisol level Renal cyst Renal stone Multinodular thyroid HLD (hyperlipidemia) CAD (coronary artery disease) GERD (gastroesophageal reflux disease) Hyperparathyroidism Hypothyroidism Vitamin D deficiency Osteopenia Pituitary macroadenoma Surgical History History of esophagogastroduodenoscopy (EGD) H/O colonoscopy (~09/14/21) Hx of squamous cell carcinoma excision Hx of parathyroidectomy History of pituitary surgery Hx of lithotripsy History of bladder surgery Family History Father Liver cancer Mother Pancreatic cancer Social History Housing: House Alcohol intake: never Patient Tobacco Use Status: Never used Tobacco e-Cigarette/Vaping Use: Never Used Second Hand Smoke Exposure: No service: No Current occupational status: retired Cognitive needs: No Hearing needs: No Vision needs: Yes (rx glasses) Questionnaire PHQ-9 Over the last 2 weeks, how often have you been bothered by any of the following problems? 1. Little interest or pleasure in doing things: not at all 2. Feeling down, depressed, or hopeless: several days 3. Trouble falling or staying asleep, or sleeping too much: not at all 4. Feeling tired or having little energy: not at all 5. Poor appetite or overeating: not at all 6. Feeling bad about yourself - or that you are a failure or have let yourself or your family down: not at all 7. Trouble concentrating on things, such as reading the newspaper or watching television: not at all 8. Moving or speaking so slowly that other people could have noticed. Or the opposite - being so fidgety or restless that you have been moving around a lot more than usual: not at all 9. Thoughts that you would be better off or of hurting yourself in some way: not at all Total score: 1 Depression Screening Interpretation: Negative Depression Screening Done: Yes 82691 - PHQ-9 Billing: Yes Source: Developed by Drs. Alex Alonzo, Rubi Ghotra, Anton Chavez and colleagues, with an educational mehran from [employer]. Thrive Questionnaire Date Thrive assessed: 07/19/24 I am a: Patient Within the past 12 months, did the food you bought not last and you didn't have the money to get more?: Never true Within the past 12 months, did you worry whether your food would run out before you got money to buy more?: Never true Do you have trouble paying for medicines?: No Do you have trouble getting transportation to medical appointments?: No Do you have trouble paying your heating and electricity bill?: No Do you have trouble taking care of your child, family member or friend?: No Do you have trouble with day-to-day activities such as bathing, preparing meals, shopping, managing finances, etc.?: No Are you currently unemployed and looking for a job?: No Are you interested in more education?: No THRIVE Score: 0 AUDIT C Alcohol Use Questionnaire (AUDIT-C) 1. How often do you have a drink containing alcohol?: Never 3. How often do you have six or more drinks on one occasion?: Never Total Score: 0 ESTELITA-7 AMB Questionnaire ESTELITA-7 Date ESTELITA - 7 assessed: 07/19/24 Feeling nervous, anxious, or on edge: 1 = Several days Not being able to stop or control worryin = Not at all Worrying too much about different things: 0 = Not at all Trouble relaxin = Not at all Being so restless that it is hard to sit still: 0 = Not at all Becoming easily annoyed or irritable: 0 = Not at all Feeling afraid as if something awful might happen: 0 = Not at all Total ESTELITA-7 score (0-4 normal; 5-9 mild; 10-14 moderate; 15-21 severe): 1 Source: Developed by Drs. Alex Alonzo, Anton Cline and colleagues, with an educational mehran from [employer]. Physical exam (Primary Care) Tobacco/Smoking Status: Tobacco use Status Tobacco use date assessed 07/19/24 07/19/24 08:58 Patient Tobacco Use Status Never used Tobacco 07/19/24 08:49 e-Cigarette/Vaping Use Never Used 07/19/24 08:49 PHQ-9: PHQ-9 Score PHQ-9: Total score 0 07/19/24 08:58 Depression Screening Interpretation: Negative Thrive Assessment: Date of Thrive Assessment Date Thrive assessed 07/19/24 07/19/24 08:58 Coding Level of Care Code Est Pt Level 4 (46332) Diagnoses Preoperative examination Z01.818 Coronary artery disease involving iroquois coronary artery of iroquois heart, unspecified whether angina present I25.10 Coronary Disease-Associated Artery/Lesion type: iroquois artery [place] vs. transplanted heart: iroquois heart Associated angina: unspecified whether angina present Multinodular thyroid E04.2 Additional Codes PHQ-9 - 74728 - PHQ-9 Billing: Yes ([id number]) Assessment & Plan Assessment & Plan (1) Preoperative examination: Code(s): Z01.818 - Encounter for other preprocedural examination Category: Medical (2) CAD (coronary artery disease): Code(s): I25.10 - Atherosclerotic heart disease of iroquois coronary artery without angina pectoris Category: Medical Qualifiers: Coronary Disease-Associated Artery/Lesion type: iroquois artery [place] vs. transplanted heart: iroquois heart Associated angina: unspecified whether angina present Qualified Code(s): I25.10 - Atherosclerotic heart disease of iroquois coronary artery without angina pectoris (3) Multinodular thyroid: Code(s): E04.2 - Nontoxic multinodular goiter Category: Medical Plan 79 year old female por preoperative assessment No major cardiac risk factors Recent lexiscan nuclear study Blood pressure is adequately controlled METS>/=4 No further cardiac testing needed prior to proposed surgeries Medications: New sucralfate 1 g PO BID 60 tabs 3RF
[2024-07-19 09:06] VITALS: BP 130/76; PULSE 69; TEMP 36.5; BMI 29.1
== END 2024-07-19 09:31 | disposition home or self-care (01) ==
LOC: HO.HMCHD 08:51
PROVIDERS: PCP Internal Medicine; Visit Provider Internal Medicine
DX: Z01.818 Encounter for other preprocedural examination (principal); I25.10 Atherosclerotic heart disease of native coronary artery without angina pectoris; E04.2 Nontoxic multinodular goiter

== ENCOUNTER → 2024-07-19 08:50 | Outpatient (BNVA) | payer MEDICARE, OTHER, SELFPAY | PROVIDERS: PCP Internal Medicine; Visit Provider Internal Medicine | DX: Z01.818 Encounter for other preprocedural examination (principal); I25.10 Atherosclerotic heart disease of native coronary artery without angina pectoris; I10 Essential (primary) hypertension; E03.9 Hypothyroidism, unspecified; K21.9 Gastro-esophageal reflux disease without esophagitis; K58.9 Irritable bowel syndrome, unspecified; F41.9 Anxiety disorder, unspecified; E21.3 Hyperparathyroidism, unspecified; E04.2 Nontoxic multinodular goiter | CPT/HCPCS: 96127; 99212 ==

== ENCOUNTER 2024-10-02 08:27 | Outpatient (REF) | payer MEDICARE, OTHER, SELFPAY ==
--- NOTE | ~2024-10-02 | MM_ITS ---
EXAMINATION: MM SCREENING DIGITAL BREAST TOMOSYNTHESIS, BILATERAL CLINICAL INFORMATION: Screening. Asymptomatic. COMPARISON: Mammography: Comparison is made with available priors TECHNIQUE: Digital breast mammography with tomosynthesis is performed in both the craniocaudal and mediolateral oblique views along with computer-aided detection (CAD). FINDINGS: There are scattered areas of fibroglandular density (ACR BI-RADS breast composition Category b). There are no significant masses, abnormal calcifications, or other abnormalities. MM/MM tomosynthesis screening BI IMPRESSION: No mammographic evidence of malignancy. ASSESSMENT: BI-RADS BI-RADS 1 - Negative RECOMMENDATION: Routine annual mammography screening. 1 year F/U This examination should not preclude the clinical evaluation of a suspicious palpable abnormality. This patient's information was entered into a reminder system with a target due date for their next mammogram. Electronically signed by: Elen Jenkins DO 10/03/2024 01:17 PM EDT
--- OUTSIDE RECORDS SUMMARY | 2024-10-02 09:07 | XMS_ITS | Encounter Summary ---
Author Organization [facility] Address [address] [place] [address] [address] [place] [address] Phone Care Team Providers Care [employer] Material Cutter Name Role Phone Taj Paige MD Primary Care Provider Anca Green MD Unavailable [phone] Encounter Details Date Type Department Care Team (Late st Contact Info) Description 03/25/2019 Ancillary Orders [facility] Neurosurgery [address] [facility], [address], [address] [place] [address] Lauren Cramer MD [address] [facility] [address] [place] [address] [email or web address] Pituitary tumor Social History Tobacco Use Types Packs/Day Years Used Date Smoking Tobacco: Never Smokeless Tobacco: Never Comments Unknown Sex and Gender Information Value Date Recorded Sex Assigned at Female 02/25/2019 3:47 PM EST Legal Sex Female 3:38 PM EST Gender Identity Female 02/25/2019 3:47 PM EST Sexual Orientation Straight 02/25/2019 3: 47 PM EST documented as of this encounter Plan of Treatment Not on file documented as of this encounter Results * [place] Fluoroscopy Guidance - No Charge (04/03/2019 10:01 AM EST) 04/04/2019 2:39 AM EST Narrative [facility] RAD - 04/04/2019 2:39 AM EST Dose (mGy): 1.20 Dose Area Product (DAP): n/a Dose Area Product (DAP) Units: n/a Fluoro time (min): 10.7 sec Number of Spot Films: n/a Procedure Note Shank Turner, Dictation - 04/04/2019 Dose (mGy): 1.20 Dose Area Product (DAP): n/a Dose Area Product (DAP) Units: n/a Fluoro time (min): 10.7 sec Number of Spot Films: n/a us Lauren Cramer MD IMG [place] EXAMS Final Resul t [facility] RAD [address] 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 It is not the complete legal health record.[facility]
== END 2024-10-02 08:28 | disposition home or self-care (01) ==
LOC: HO.MAMMO 08:27
PROVIDERS: PCP Physician Assistant; Visit Provider Internal Medicine
DX: Z12.31 Encounter for screening mammogram for malignant neoplasm of breast (principal)
CPT/HCPCS: 77063; 77067

== ENCOUNTER → 2024-10-02 08:45 | Outpatient (BNV) | payer MEDICARE, OTHER, SELFPAY | PROVIDERS: PCP Physician Assistant; Visit Provider Internal Medicine | DX: Z12.31 Encounter for screening mammogram for malignant neoplasm of breast (principal) | CPT/HCPCS: 77063; 77067 ==

== ENCOUNTER 2024-10-29 08:34 | Outpatient (AMB) | payer MEDICARE, OTHER, SELFPAY ==
--- NOTE | 2024-10-29 08:39 | MHC.PC.OV ---
Vital Signs 10/29/24 08:42 Height 4 ft 11 in Weight 64.41 kg BMI 28.7 BP 134/68 Respiration 16 Pulse 72 Pulse Source Pulse Oximeter Temp 97.3 F Temp Source Temporal Artery Scan Pulse Oximetry (%) 97 Oxygen Delivery Method Room Air Intake Visit Reasons: Bones/ Blood Work Complaint Evaluation Supervisor Required: No Accompanied by: Self / Same As Patient Allergies No Known Allergies (No Known Allergies*) Allergy (Verified 10/29/24 08:39) Medication List - Last Reconciled 10/29/24 by SY Donaldson aspirin 81 mg PO DAILY atorvastatin 20 mg PO BEDTIME [id number] 600 mg calcium- 800 unit-50 mg (Caltrate 600-D Plus Minerals) 1 tab PO DAILY fluorouracil 5% 1 appl topical BID levothyroxine 75 mcg PO Q OTHER DAY levothyroxine 50 mcg PO .qod metoprolol tartrate 12.5 mg (1/2 x 25 mg) PO BID omeprazole 40 mg PO BID sertraline 25 mg PO DAILY sucralfate 1 g PO BID timolol maleate 0.5% 1 drp ophthalmic (eye) Q12H trazodone 50 mg PO BEDTIME PRN Tobacco use date assessed: 07/19/24 Dental Screening Dental Screen Date: 07/19/24 HPI HPI Comments History of Present Illness Details 79 year old female with PMHx CAD s/p [place] hypertension, hypothyroid, GERD, IBS, anxiety, Pituitary Macroadenoma, osteopenia, hyperparathyroidism 79-year-old female with history of coronary artery disease s/p mi, hypertension, hypothyroidism, GERD, IBS, anxiety/depression, pituitary macroadenoma, osteopenia, hyperparathyroidism presenting to the office for evaluation. Pituitary microadenoma/hyperparathyroidism-s/p parathyroidectomy. Following with endocrinology Osteopenia-following with endocrinology. Hyperlipidemia/CAD-on metoprolol 12.5 mg twice daily, atorvastatin 20 mg daily, baby aspirin.. Blood pressure controlled with BP 134/68 GERD-reflux controlled but see below. On omeprazole 40 mg twice daily Hypothyroidism-following with endocrinology. On levothyroxine 75 mcg every other day and levothyroxine 50 mcg every other day Concerns: Fatigue/daytime hypersomnolence/insomnia-question related to uncontrolled depression. States that she will be so tired, that she will lay down, aware of her surroundings, can hear, but unable to talk. Also reporting memory issues. She states she is having difficulty staying asleep and falling asleep and is only sleeping about 3-4 hours nightly. She is very tired during the day but tries not to nap so that she can get adequate sleep at nighttime. Ongoing about 6 months. No snoring or apneic episodes Depression/anxiety Has history of depression previously managed by Psychiatry that greatly improved and medication was discontinued. She states she does sometimes obsess over her own (naturally) no active thoughts of hurting herself or plans. Denies any substance use. Taking medications as prescribed. PHQ-9 score 19, estelita 7 score 15 Reporting dysphagia/globus sensation ongoing for 6 months. Has nausea somewhat constantly. Wakes up in the middle of the night to vomiting. Has had gradual weight loss but no significant loss over the last 3 months. Has not improved since increasing the omeprazole to 40 mg daily. Previously followed with Dr. Verdugo ROS: see hpi EXAM: Constitutional - Awake and Alert, No apparent distress Eyes - PERRL Cardiovascular - S1S2, RRR, No edema Respiratory - Normal lung expansion, Normal respiratory effort, No respiratory distress, CTA bilaterally Extremities - no calf tenderness bilaterally, no swelling Skin - Warm/Dry Neurological - Alert & oriented x3 Psychological - Appropriate affect [facility] Medical History (Updated 10/29/24 @ 12:58 by SY Donaldson) Type 2 diabetes mellitus Myocardial infarct Low serum cortisol level Renal cyst Renal stone Multinodular thyroid HLD (hyperlipidemia) CAD (coronary artery disease) GERD (gastroesophageal reflux disease) Hyperparathyroidism Hypothyroidism Vitamin D deficiency Osteopenia Pituitary macroadenoma Surgical History History of esophagogastroduodenoscopy (EGD) H/O colonoscopy (~09/14/21) Hx of squamous cell carcinoma excision Hx of parathyroidectomy History of pituitary surgery Hx of lithotripsy History of bladder surgery Family History Father Liver cancer Mother Pancreatic cancer Social History Housing: House Alcohol intake: never Patient Tobacco Use Status: Never used Tobacco e-Cigarette/Vaping Use: Never Used Second Hand Smoke Exposure: No service: No Current occupational status: retired Cognitive needs: No Hearing needs: No Vision needs: Yes (rx glasses) Questionnaire PHQ-9 Over the last 2 weeks, how often have you been bothered by any of the following problems? 1. Little interest or pleasure in doing things: more than half the days 2. Feeling down, depressed, or hopeless: more than half the days 3. Trouble falling or staying asleep, or sleeping too much: nearly every day 4. Feeling tired or having little energy: nearly every day 5. Poor appetite or overeating: nearly every day 6. Feeling bad about yourself - or that you are a failure or have let yourself or your family down: several days 7. Trouble concentrating on things, such as reading the newspaper or watching television: more than half the days 8. Moving or speaking so slowly that other people could have noticed. Or the opposite - being so fidgety or restless that you have been moving around a lot more than usual: more than half the days 9. Thoughts that you would be better off or of hurting yourself in some way: several days Total score: 19 Depression Screening Interpretation: Positive Depression Screening Done: Yes 15912 - PHQ-9 Billing: Yes Source: Developed by Drs. Alex Alonzo, Rubi Ghotra, Anton Chavez and colleagues, with an educational mehran from [employer]. Thrive Questionnaire Date Thrive assessed: 07/19/24 I am a: Patient What is your living situation today?: I have a steady place to live Within the past 12 months, did the food you bought not last and you didn't have the money to get more?: Never true Within the past 12 months, did you worry whether your food would run out before you got money to buy more?: Never true Do you have trouble paying for medicines?: No Do you have trouble getting transportation to medical appointments?: No Do you have trouble paying your heating and electricity bill?: No Do you have trouble taking care of your child, family member or friend?: No Do you have trouble with day-to-day activities such as bathing, preparing meals, shopping, managing finances, etc.?: No Are you currently unemployed and looking for a job?: No Are you interested in more education?: No Please select the resources that you would like help with: None Currently or been in a relationship where the following occur: No concerns reported THRIVE Score: 0 ESTELITA-7 AMB Questionnaire ESTELITA-7 Date ESTELITA - 7 assessed: 07/19/24 Feeling nervous, anxious, or on edge: 3 = Nearly every day Not being able to stop or control worryin = More than half the days Worrying too much about different things: 3 = Nearly every day Trouble relaxin = More than half the days Being so restless that it is hard to sit still: 1 = Several days Becoming easily annoyed or irritable: 2 = More than half the days Feeling afraid as if something awful might happen: 2 = More than half the days Total ESTELITA-7 score (0-4 normal; 5-9 mild; 10-14 moderate; 15-21 severe): 15 Source: Developed by Drs. Alex Alonzo, Rubi Ghotra, Anton Chavez and colleagues, with an educational mehran from [employer]. ESTELITA-7 Assessment Billing ESTELITA-7 Assessment Tool: ESTELITA-7 Assessment 10185 Physical exam (Primary Care) Vital Signs: Last Vital Signs Temp 97.3 F 10/29/24 08:42 Pulse 72 10/29/24 08:42 Resp 16 10/29/24 08:42 BP 134/68 10/29/24 08:42 Pulse Ox 97 10/29/24 08:42 Oxygen Delivery Method Room Air 10/29/24 08:42 BMI result Body Mass Index 28.7 Tobacco/Smoking Status: Tobacco use Status Tobacco use date assessed 07/19/24 10/29/24 08:45 Patient Tobacco Use Status Never used Tobacco 10/29/24 08:45 e-Cigarette/Vaping Use Never Used 10/29/24 08:45 Depression Screening Interpretation: Positive Thrive Assessment: Date of Thrive Assessment Date Thrive assessed 07/19/24 10/29/24 08:45 Currently or been in a relationship where the following occur: No concerns reported Coding Level of Care Code Est Pt Level 4 (00208) Complex EM visit Add On G2211 Diagnoses Fatigue R53.83 Dysphagia R13.10 Globus sensation R09.A2 Hypothyroidism, unspecified type E03.9 Hypothyroidism type: unspecified Coronary artery disease involving [place] coronary artery of [place] heart, unspecified whether angina present I25.10 Associated angina: unspecified whether angina present Coronary Disease-Associated Artery/Lesion type: [place] artery [place] vs. transplanted heart: [place] heart HLD (hyperlipidemia) E78.5 New onset type 2 diabetes mellitus E11.9 Depression with anxiety F41.8 Additional Codes ESTELITA-7 Assessment Billing - ESTELITA-7 Assessment Tool: ESTELITA-7 Assessment 26926 ([id number]) PHQ-9 - 03610 - PHQ-9 Billing: Yes ([id number]) Assessment & Plan Assessment & Plan (1) Fatigue: Code(s): R53.83 - Other fatigue Category: Medical Plan: Labs ordered for further evaluation. Question whether this is related to uncontrolled depression. Initiate sertraline 25 mg daily. Counseled on dosing and side effects. She is also given prescription for trazodone to help with sleep. She will follow-up in the office in 6 weeks. (2) Dysphagia: Code(s): R13.10 - Dysphagia, unspecified Category: Medical Plan: Referred to Gastroenterology for further evaluation and management (3) Globus sensation: Code(s): R09.A2 - Foreign body sensation, throat Category: Medical Plan: Referred to Gastroenterology for further evaluation management (4) Hypothyroidism: Code(s): E03.9 - Hypothyroidism, unspecified Category: Medical Qualifiers: Hypothyroidism type: unspecified Qualified Code(s): E03.9 - Hypothyroidism, unspecified Plan: TSH with reflex free T4 ordered. Continue levothyroxine as prescribed. Follow-up with endocrinology (5) CAD (coronary artery disease): Code(s): I25.10 - Atherosclerotic heart disease of [place] coronary artery without angina pectoris Category: Medical Qualifiers: Associated angina: unspecified whether angina present Coronary Disease-Associated Artery/Lesion type: [place] artery [place] vs. transplanted heart: [place] heart Qualified Code(s): I25.10 - Atherosclerotic heart disease of [place] coronary artery without angina pectoris Plan: Stable. Continue metoprolol, atorvastatin, baby aspirin. Follow up with Cardiology as scheduled (6) HLD (hyperlipidemia): Code(s): E78.5 - Hyperlipidemia, unspecified Category: Medical Plan: Controlled. Continue atorvastatin (7) New onset type 2 diabetes mellitus: Code(s): E11.9 - Type 2 diabetes mellitus without complications Category: Medical Plan: Hemoglobin A1c 7.2%, reasonably controlled for patient's age. Recommend diabetic diet, discussed with patient. Check fasting glucose every morning. (8) Depression with anxiety: Code(s): F41.8 - Other specified anxiety disorders Category: Medical Plan: As above. Advised that if symptoms worsen, contact 911/go to the ER Plan Follow-up in the office in 6 weeks. Labs to be completed following visit today. She is referred to Gastroenterology. Orders: Orders Basic Metabolic Panel Today E03.9 - Hypothyroidism, unspecified, E55.9 - Vitamin D deficiency, unspecified, R09.A2 - Foreign body sensation, throat, R11.2 - Nausea with vomiting, unspecified, R13.10 - Dysphagia, unspecified, R53.83 - Other fatigue Complete Blood Count Auto Diff Today E03.9 - Hypothyroidism, unspecified, E55.9 - Vitamin D deficiency, unspecified, R09.A2 - Foreign body sensation, throat, R11.2 - Nausea with vomiting, unspecified, R13.10 - Dysphagia, unspecified, R53.83 - Other fatigue Hemoglobin A1c Today E03.9 - Hypothyroidism, unspecified, E55.9 - Vitamin D deficiency, unspecified, R09.A2 - Foreign body sensation, throat, R11.2 - Nausea with vomiting, unspecified, R13.10 - Dysphagia, unspecified, R53.83 - Other fatigue IRON PROFILE Today E03.9 - Hypothyroidism, unspecified, E55.9 - Vitamin D deficiency, unspecified, R09.A2 - Foreign body sensation, throat, R11.2 - Nausea with vomiting, unspecified, R13.10 - Dysphagia, unspecified, R53.83 - Other fatigue TSH reflex Free T4 Today E03.9 - Hypothyroidism, unspecified, E55.9 - Vitamin D deficiency, unspecified, R09.A2 - Foreign body sensation, throat, R11.2 - Nausea with vomiting, unspecified, R13.10 - Dysphagia, unspecified, R53.83 - Other fatigue Microalbumin, Random (w Creat) Today E03.9 - Hypothyroidism, unspecified, E55.9 - Vitamin D deficiency, unspecified, R09.A2 - Foreign body sensation, throat, R11.2 - Nausea with vomiting, unspecified, R13.10 - Dysphagia, unspecified, R53.83 - Other fatigue Lipid Panel Today E03.9 - Hypothyroidism, unspecified, E55.9 - Vitamin D deficiency, unspecified, R09.A2 - Foreign body sensation, throat, R11.2 - Nausea with vomiting, unspecified, R13.10 - Dysphagia, unspecified, R53.83 - Other fatigue Liver Panel Today E03.9 - Hypothyroidism, unspecified, E55.9 - Vitamin D deficiency, unspecified, R09.A2 - Foreign body sensation, throat, R11.2 - Nausea with vomiting, unspecified, R13.10 - Dysphagia, unspecified, R53.83 - Other fatigue Vitamin D 25-OH Total Today E03.9 - Hypothyroidism, unspecified, E55.9 - Vitamin D deficiency, unspecified, R09.A2 - Foreign body sensation, throat, R11.2 - Nausea with vomiting, unspecified, R13.10 - Dysphagia, unspecified, R53.83 - Other fatigue Referrals Gastroenterology Referral R09.A2 - Foreign body sensation, throat, R11.2 - Nausea with vomiting, unspecified, R13.10 - Dysphagia, unspecified Medications: New blood-glucose meter (FreeStyle Lite Meter kit) As directed. Check fasting glucose daily 1 ea 0RF blood sugar diagnostic (FreeStyle Lite Strips) As directed. Check fasting glucose daily 100 ea 0RF lancets (FreeStyle Lancets) As directed. Check fasting glucose daily 100 ea 0RF sertraline 25 mg PO DAILY 90 tabs 1RF trazodone 50 mg PO BEDTIME PRN 90 tabs 0RF sleep Changed From omeprazole 40 mg PO DAILY 90 caps 3RF To omeprazole 40 mg PO BID 180 caps 3RF
[2024-10-29 08:42] VITALS: BP 134/68; PULSE 72; RESP 16; TEMP 36.3; O2SAT 97; BMI 28.7
--- OUTSIDE RECORDS SUMMARY | 2024-10-29 10:14 | XMS_ITS | Clinical Summary ---
Author Organization [facility] Address [address] [place] [address] Phone Care Team Providers Care Acid Extractor Name Role Phone Taj Paige MD Primary Care Provider Anca Green MD Unavailable [phone] Allergies No known active allergies Medications metoprolol succinate (TOPROL-XL) 25 MG 24 hr tablet Take 25 mg by mouth daily. Active atorvastatin (LIPITOR) 40 MG tablet Take 40 mg by mouth nightly at bedtime. Active omeprazole (PRILOSEC) 20 MG capsule Take 20 mg by mouth daily. Active levothyroxine (SYNTHROID,LEVO THROID) 25 MCG tablet Take 50 mcg by mouth every morning. Active Ca cit-D3-mag#11-z nkf-zzqk-zxq-dimitri r (CALTRATE 600+D) 600 mg calcium- 800 unit-50 mg Tab Take 1 tablet by mouth nightly at bedtime. Active acetaminophen (TYLENOL) 325 mg tablet Take 650 mg by mouth every 6 (six) hours as needed for mild pain. Active aspirin 81 MG EC tablet Take 81 mg by mouth daily. Active Active Problems Problem Noted Date Diagnosed Date Pituitary adenoma 04/03/2019 Family History Medical History Relation Comments Cancer Mother Heart disease Unspecified Stroke Unspecified Relation Status Comments Mother Alive Unspecified Social History Tobacco Use Types Packs/Day Years Used Date Smoking Tobacco: Never Smokeless Tobacco: Never Alcohol Use Standard Drinks/Week Comments Not Currently 0 (1 standard drink = 0.6 oz pur e alcohol) Education Answer Date Recorded Are you interested in more education? Not on arielle e 06/10/2022 Are you concerned about learning? Not on file 06/10/2022 No 06/10/2022 No 06/10/2022 Digital Access Answer Date Recorded No 07/09/2022 No 07/09/2022 No 07/09/2022 Reliable internet access at home? Not on file 07/09/2022 Device with a working camera? Not on file Comments Unknown Sex and Gender Information Value Date Recorded Sex Assigned at Female 02/25/2019 3:47 PM EST Legal Sex Female 3:38 PM EST Gender Identity Female 02/25/2019 3:47 PM EST Sexual Orientation Straight 02/25/2019 3: 47 PM EST Last Filed Vital Signs Vital Sign Reading Time Taken Comments Blood Pressure 145/71 01/26/2022 9:56 AM EST Pulse 73 01/26/2022 9:56 AM EST Temperature 36.3 C (97.4 F) 04/04/2019 11:17 AM EST Respiratory Rate 14 02/17/2021 1:53 PM EST Oxygen Saturation 96% 01/26/2022 9:56 AM EST Inhaled Oxygen Concentration 35% 04/03/2019 1 :30 PM EST Weight 64.1 kg (141 lb 6.4 oz) 01/26/2022 9:56 A M EST Height 144.8 cm (4' 9 ) 04/03/2019 2:00 PM EST Body Mass Index 30.6 04/03/2019 2:00 PM EST Plan of Treatment Health Maintenance Due Date Last Done Comments Adult Td,Tdap Booster 1945 LIPID PANEL 1945 TSH LEVEL 1947 DEPRESSION SCREENING 1959 HEPATITIS C SCREENING 1965 PNEUMOCOCCAL VACCINES (50+ years) (1 of 1 - PCV) 1997 ZOSTER VACCINES (1 of 2) 1997 OSTEOPOROSIS SCREENING INITI AL (ONE-TIME) 02/29/2012 RSV VACCINE (1 - 1-dose 75+ series) 2022 INFLUENZA VACCINE (#1) 2024 COVID-19 VACCINE (4 - 2024-2 6 season) 2024 02/09/2021, 06/16/2020, 05/26/2020 SMOKING STATUS SCREENING (On ce After 26 Yrs) Completed 04/29/2021 HEPATITIS A VACCINES Aged Out No long er eligible based on patient's age to complete this topic HIB VACCINES Aged Out No longer eligi ble based on patient's age to complete this topic MENINGOCOCCAL VACCINES (ACWY) Aged Out No longer eligible based on patient's age to complete this topic MENINGOCOCCAL VACCINES (B) Aged Out N o longer eligible based on patient's age to complete this topic Medical Devices Implanted Type Area Corporate Claims Examiner Device Identifier Shelf Expiration Date Model / Serial / Lot Craniofacial Plate 50.0x1mm Titanium Micro Mesh - [id number] Implanted:Qty: 1 on 04/03/2019 by Lauren Cramer MD at [facility] Nose SYNTHES [id number] / [id number] / [id number] Insurance [employer] EXTENSION MEDICARE SUPPLEMENT MEDICARE PART A & B [employer] EXTENSION MEDICARE SUPPLEMENT MEDICARE PART A & B [facility] [place] [phone] MEDICARE PART A & B [employer] EXTENSION MEDICARE SUPPLEMENT MEDICARE PART A & B [employer] EXTENSION MEDICARE SUPPLEMENT MEDICARE PART A & [place] [address] [place] [address] MEDICARE SUPPLEMENT MEDICARE PART A & [place] [address] [place] [address] MEDICARE SUPPLEMENT MEDICARE PART A & B [facility] EXTENSION MEDICARE SUPPLEMENT MEDICARE PART A & B [facility] EXTENSION MEDICARE SUPPLEMENT MEDICARE PART A & B Advance Directives For more information, please contact: [phone] (9AM - 5PM [facility], Monday-Monday) Documents on File Type Date Recorded Patient Marble Installation Helper Expl anation Healthcare Proxy 04/29/2021 * Full Code (Presumed) (Latest Code Status on File) Date Activated Date Inactivated Comments 04/03/2019 10:24 AM 04/04/2019 3:44 PM Care Teams Acid Extractor Relationship Specialty Start Date End Date Taj Paige MD [address] [place] [address] [place] [address] PCP - General Internal Medicine 02/25/19 Anca Green MD [address] [place] [address] [place] [address] Cardiology 03/26/19 Additional Source Comments The information contained in this document represents components of the legal health record. It is not the complete legal health record.[facility]
--- OUTSIDE RECORDS SUMMARY | 2024-10-29 10:14 | XMS_ITS | Encounter Summary ---
Author Organization [facility] Address [address] [place] [address] [address] [place] [address] Phone Care Team Providers Care Openstack Cloud Consulting Architect Name Role Phone Taj Paige MD Primary Care Provider Anca Green MD Unavailable [phone] Encounter Details Date Type Department Care Team (Late st Contact Info) Description 03/25/2019 Ancillary Orders [facility] Neurosurgery [address] [facility], 3rd Floor, [address] [place] [address] Lauren Cramer MD [address] [facility] [address] [place] [address] [email or web address] Pituitary tumor Social History Tobacco Use Types [...] Number of Spot Films: n/a Procedure Note Assembler For Puller Over Hand, Dictation - 04/04/2019 Dose (mGy): 1.20 Dose Area Product (DAP): n/a Dose Area Product (DAP) Units: n/a Fluoro time (min): 10.7 sec Number of Spot Films: n/a us Lauren Cramer MD IMG FL EXAMS Final Resul t [facility] RAD [address] 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 It is not the complete legal health record.[facility]
--- OUTSIDE RECORDS SUMMARY | 2024-10-29 10:14 | XMS_ITS | Encounter Summary ---
Author Organization [facility] Address [address] [place] [phone] Phone Care Team Providers Care Social Director Name Role Phone Taj Paige MD Primary Care Provider Anca Green MD Unavailable [phone] Encounter Details Date Type Department Care Team (Late st Contact Info) Description 04/03/2019 Procedure Pass [facility] PERIOPERATIVE DEPT [address] [place] [phone] Social History Tobacco Use Types Packs/Day Years Used Date Smoking Tobacco: Never Smokeless Tobacco: Never Alcohol Use Standard Drinks/Week Comments Not Currently 0 (1 standard drink = 0.6 oz pur e alcohol) Comments Unknown Sex and Gender Information Value Date Recorded Sex Assigned at Female 02/25/2019 3:47 PM EST Legal Sex Female 3:38 PM EST Gender Identity Female 02/25/2019 3:47 PM EST Sexual Orientation Straight 02/25/2019 3: 47 PM EST documented as of this encounter Plan of Treatment Not on file documented as of this encounter Visit Diagnoses Not on filedocumented in this encounter Care Teams Social Director Relationship Specialty Start Date End Date Taj Paige MD [address] [place] [address] [place] [address] PCP - General Internal Medicine 02/25/19 Anca Green MD [address] [place] [address] [place] [address] Cardiology 03/26/19 documented as of this encounter Additional Source Comments The information contained in this document represents components of the legal health record. It is not the complete legal health record.[facility]
--- OUTSIDE RECORDS SUMMARY | 2024-10-29 10:14 | XMS_ITS | Encounter Summary ---
Author Organization Formerly [facility] Address [address] [place] [address] Phone Care Team Providers Care Consumer Banker Name Role Phone Taj Paige MD Primary Care Provider Anca Green MD Unavailable Encounter Details Date Type Department Care Team (Late st Contact Info) Description 05/18/2021 Ancillary Orders [facility],Outside Imaging [address] [place] [address] System, Provider Not In, [facility] [address] [address] Social History Tobacco Use Types Packs/Day Years [...] documented as of this encounter Results * MRI Brain Outside (No Interpretation) (11/26/2020 12:00 AM EDT) Narrative SYSTEMGENERATED, DOCUMENTATION - 05/18/2021 11:41 AM EDT This study is for PACS storage only and not for interpretation. us Provider Not In System PhD IMG OUTSIDE IMAGING W /OUT INTERPRETATION Final Result documented in this encounter Visit Diagnoses Not on filedocumented in this encounter Care Teams Consumer Banker Relationship Specialty Start Date End Date Taj Paige MD [address] [place] [address] [place] [address] PCP - General Internal Medicine 02/25/19 Anca Green MD [address] [place] [address] [place] [address] Cardiology 03/26/19 documented as of this encounter Additional Source Comments The information contained in this document represents components of the legal health record. It is not the complete legal health record.[facility]
--- OUTSIDE RECORDS SUMMARY | 2024-10-29 10:14 | XMS_ITS | Encounter Summary ---
Author Organization [facility] Address [address] [place] [address] Phone Care Team Providers Care Actuary Clerk Name Role Phone Taj Paige MD Primary Care Provider Anca Green MD Unavailable [phone] Encounter Details Date Type Department Care Team (Late st Contact Info) Description 04/14/2021 Ancillary Orders [facility],Outside Imaging [address] [place] [address] System, Provider Not In, [facility] [address] [address] Social History Tobacco Use Types Packs/Day Years [...] Results * MRI Brain Outside (No Interpretation) (03/19/2020 12:00 AM EST) Narrative SYSTEMGENERATED, DOCUMENTATION - 04/14/2021 6:11 PM EST This study is for PACS storage only and not for interpretation. us Provider Not In System PhD IMG OUTSIDE IMAGING W /OUT INTERPRETATION Final Result * MRI Brain Outside (No Interpretation) (06/11/2019 12:00 AM EDT) Narrative SYSTEMGENERATED, DOCUMENTATION - 04/14/2021 6:12 PM EST This study is for PACS storage only and not for interpretation. us Provider Not In System PhD IMG OUTSIDE IMAGING W /OUT INTERPRETATION Final Result * MRI Brain Outside (No Interpretation) (11/05/2018 12:00 AM EDT) Narrative SYSTEMGENERATED, DOCUMENTATION - 04/14/2021 6:12 PM EST This study is for PACS storage only and not for interpretation. us Provider Not In System PhD IMG OUTSIDE IMAGING W /OUT INTERPRETATION Final Result * MRI Brain Outside (No Interpretation) (05/24/2018 12:00 AM EDT) Narrative SYSTEMGENERATED, DOCUMENTATION - 04/14/2021 6:13 PM EST This study is for PACS storage only and not for interpretation. us Provider Not In System PhD IMG OUTSIDE IMAGING W /OUT INTERPRETATION Final Result * MRI Neck Outside (No Interpretation) (05/10/2018 12:00 AM EDT) Narrative SYSTEMGENERATED, DOCUMENTATION - 04/14/2021 6:14 PM EST This study is for PACS storage only and not for interpretation. us Provider Not In System PhD IMG OUTSIDE IMAGING W /OUT INTERPRETATION Final Result documented in this encounter Visit Diagnoses Not on filedocumented in this encounter Care Teams Actuary Clerk Relationship Specialty Start Date End Date Taj Paige MD [address] [place] [address] [place] [address] PCP - General Internal Medicine 02/25/19 Anca Green MD [address] [place] [address] [place] [address] Cardiology 03/26/19 documented as of this encounter Additional Source Comments The information contained in this document represents components of the legal health record. It is not the complete legal health record.[facility]
== END 2024-10-29 09:34 | disposition home or self-care (01) ==
LOC: HO.HMCHD 08:34
PROVIDERS: PCP Physician Assistant; Visit Provider Physician Assistant
DX: R53.83 Other fatigue (principal); R13.10 Dysphagia, unspecified; R09.A2 Foreign body sensation, throat; E03.9 Hypothyroidism, unspecified; I25.10 Atherosclerotic heart disease of native coronary artery without angina pectoris; E78.5 Hyperlipidemia, unspecified; E11.9 Type 2 diabetes mellitus without complications; F41.8 Other specified anxiety disorders

== ENCOUNTER 2024-10-29 08:34 | Outpatient (REF) | payer MEDICARE, OTHER, SELFPAY ==
[2024-10-29 10:11] LABS: MANUAL DIFF FLAG NO
[2024-10-29 10:38] LABS: Hematocrit 36.3 % (37.0-47.0); Hemoglobin 11.9 g/dl (12.0-16.0); Imm Gran Abs Auto 0.03 X10*3/uL (0.00-0.03); Imm Gran Pct Auto 0.6 % (0.0-0.4); Lymphocytes Absolute Auto 2.1 X10*3/uL (1.2-4.9); Mean Corpuscular HGB Conc 32.8 g/dl (31.0-35.0); Mean Corpuscular Hemoglobin 28.1 pg (27.0-33.0); Mean Corpuscular Volume 85.8 fL (80.0-98.0); NRBC Abs Auto 0.000 X10*3/uL (0.0-0.012); NRBC Pct Auto 0.0 /100WBC (0.0-0.2); Platelet Count 212 X10*3/uL (160-400); Red Blood Count 4.23 X10*6/uL (4.20-5.50); White Blood Count 5.4 X10*3/uL (4.8-10.8)
[2024-10-29 10:46] LABS: Total Hemoglobin (HGBA1C) 3139.0072 umol/L
[2024-10-29 11:44] LABS: Alanine Aminotransferase 58 U/L (0-31); Albumin Level 4.5 g/dL (3.5-5.0); Alkaline Phosphatase 120 U/L (39-117); Anion Gap 12 (12-20); Aspartate Amino Transferase 63 U/L (5-31); Blood Urea Nitrogen 8 mg/dL (9-16); Calcium 8.9 mg/dL (8.4-10.2); Carbon Dioxide 26 mmol/L (22-29); Chloride 107 mmol/L (96-108); Cholesterol 195 mg/dL (<200); Estimated Glomerular Filt Rate > 60; HDL Cholesterol 41 mg/dL (>40); Iron 66 mcg/dL (30-160); Percent Iron Saturation 18 % (15-50); Potassium 3.9 mmol/L (3.3-5.1); Sodium 141 mmol/L (135-145); Total Iron Binding Capacity 365 mcg/dL (228-428); Total Protein 7.5 g/dL (6.5-8.0); Triglycerides 280 mg/dL (<150); Unsaturated Iron Binding 299 ug/dL
== END 2024-10-29 08:35 | disposition home or self-care (01) ==
LOC: HO.LAB 08:34
PROVIDERS: PCP Physician Assistant; Visit Provider Physician Assistant
DX: R53.83 Other fatigue (principal); R13.10 Dysphagia, unspecified; R09.A2 Foreign body sensation, throat; R11.2 Nausea with vomiting, unspecified; E03.9 Hypothyroidism, unspecified; E55.9 Vitamin D deficiency, unspecified; I25.10 Atherosclerotic heart disease of native coronary artery without angina pectoris; E78.5 Hyperlipidemia, unspecified; E11.9 Type 2 diabetes mellitus without complications; F41.8 Other specified anxiety disorders
CPT/HCPCS: 36415; 80048; 80061; 80076; 82043; 82306; 82570; 83036; 83540; 84443; 85025; 96127; 99212

== ENCOUNTER 2024-12-13 09:13 | Outpatient (AMB) | payer MEDICARE, OTHER, SELFPAY ==
--- NOTE | 2024-12-13 09:17 | A.OFFPC_ITS ---
Vital Signs 12/13/24 09:20 Height 4 ft 9.64 in Weight 63.957 kg BMI 29.8 BP 140/68 H Blood Pressure Location Lt brachial Position Sitting Respiration 18 Pulse 53 Pulse Source Pulse Oximeter Temp 97.6 F Temp Source Temporal Artery Scan Pulse Oximetry (%) 97 Oxygen Delivery Method Room Air Intake Visit Reasons: 1 month f/u Swedish Masseuse Required: No Accompanied by: Self / Same As Patient Allergies No Known Allergies (No Known Allergies*) Allergy (Verified 12/13/24 09:18) Tobacco use date assessed: 07/19/24 Dental Screening Dental Screen Date: 07/19/24 HPI HPI Comments History of Present Illness Details 79-year-old female with history of coron [place] artery disease s/p mi, hypertension, hypothyroidism, GERD, IBS, anxiety/depression, pituitary macroadenoma, osteopenia, hyperparathyroidism presenting to the office for evaluation. Pituitary microadenoma/hyperparathyroidism-s/p parathyroidectomy. Following with endocrinology Osteopenia-following with endocrinology. Hyperlipidemia/CAD-on metoprolol 12.5 mg twice daily, baby aspirin.. Atorvastatin 20 mg daily. LDL 98. Blood pressure controlled with BP 134/68 GERD-reflux controlled but see below. On omeprazole 40 mg twice daily Hypothyroidism-following with endocrinology. On levothyroxine 75 mcg every other day and levothyroxine 50 mcg every other day Type 2 diabetes-diagnosed last month. A1c 7.2%. Has been following diabetic diet. Concerns: Was seen in the office 1 month ago with uncontrolled depression and daytime hypersomnolence/insomnia. PHQ-9 score at that time was 19. She had been depressed, sleeping often throughout the day and had been ruminating about her own though denied any actual suicidal ideation. She was started on sertraline 25 mg daily which she has only been taking 3 times a week and has also been using trazodone 3 times a week. Reports she is feeling much improved. Has been sleeping much better and has more energy. She is able to complete ADLs on her own now. Denies any SI/HI or any adverse side effects with the Zoloft. Has thought about going to counseling but feels she has not needed this. She is also exercising more, walking around the park and at the mall ROS: see hpi EXAM: Constitutional - Awake and Alert, No apparent distress Eyes - PERRL Respiratory - normal respiratory effort, no distress Extremities - no calf tenderness bilaterally, no swelling Skin - Warm/Dry Neurological - Alert & oriented x3 Psychological - Appropriate affect PFSH Medical History Type 2 diabetes mellitus Myocardial infarct Low serum cortisol level Renal cyst Renal stone Multinodular thyroid HLD (hyperlipidemia) CAD (coronary artery disease) GERD (gastroesophageal reflux disease) Hyperparathyroidism Hypothyroidism Vitamin D deficiency Osteopenia Pituitary macroadenoma Surgical History History of esophagogastroduodenoscopy (EGD) H/O colonoscopy (~09/14/21) Hx of squamous cell carcinoma excision Hx of parathyroidectomy History of pituitary surgery Hx of lithotripsy History of bladder surgery Family History Father Liver cancer Mother Pancreatic cancer Social History Housing: House Alcohol intake: never Patient Tobacco Use Status: Never used Tobacco e-Cigarette/Vaping Use: Never Used Second Hand Smoke Exposure: No service: No Current occupational status: retired Cognitive needs: No Hearing needs: No Vision needs: Yes (rx glasses) Questionnaire PHQ-9 Over the last 2 weeks, how often have you been bothered by any of the following problems? 1. Little interest or pleasure in doing things: not at all 2. Feeling down, depressed, or hopeless: several days 3. Trouble falling or staying asleep, or sleeping too much: several days 4. Feeling tired or having little energy: not at all 5. Poor appetite or overeating: not at all 6. Feeling bad about yourself - or that you are a failure or have let yourself or your family down: not at all 7. Trouble concentrating on things, such as reading the newspaper or watching television: not at all 8. Moving or speaking so slowly that other people could have noticed. Or the opposite - being so fidgety or restless that you have been moving around a lot more than usual: not at all 9. Thoughts that you would be better off or of hurting yourself in some way: not at all Total score: 2 Depression Screening Interpretation: Negative Depression Screening Done: Yes 51075 - PHQ-9 Billing: Yes Source: Developed by Drs. Alex Alonzo, Rubi Ghotra, Anton Chavez and colleagues, with an educational mehran from [employer]. Thrive Questionnaire Date Thrive assessed: 07/19/24 ESTELITA-7 AMB Questionnaire ESTELITA-7 Date ESTELITA - 7 assessed: 07/19/24 Feeling nervous, anxious, or on edge: 0 = Not at all Not being able to stop or control worryin = Not at all Worrying too much about different things: 0 = Not at all Trouble relaxin = Several days Being so restless that it is hard to sit still: 0 = Not at all Becoming easily annoyed or irritable: 0 = Not at all Feeling afraid as if something awful might happen: 0 = Not at all Total ESTELITA-7 score (0-4 normal; 5-9 mild; 10-14 moderate; 15-21 severe): 1 Source: Developed by Drs. Alex Alonzo, Rubi Ghotra, Anton Chavez and colleagues, with an educational mehran from [employer]. Physical exam (Primary Care) Vital Signs: Last Vital Signs Temp 97.6 F 12/13/24 09:20 Pulse 53 12/13/24 09:20 Resp 18 12/13/24 09:20 BP 140/68 H 12/13/24 09:20 Pulse Ox 97 12/13/24 09:20 Oxygen Delivery Method Room Air 12/13/24 09:20 BMI result Body Mass Index 29.8 Tobacco/Smoking Status: Tobacco use Status Tobacco use date assessed 07/19/24 12/13/24 09:20 Patient Tobacco Use Status Never used Tobacco 12/13/24 09:20 e-Cigarette/Vaping Use Never Used 12/13/24 09:20 Depression Screening Interpretation: Negative Thrive Assessment: Date of Thrive Assessment Date Thrive assessed 07/19/24 12/13/24 09:20 Coding Level of Care Code Est Pt Level 4 (75725) Complex EM visit Add On G2211 Diagnoses Fatigue R53.83 Hypothyroidism, unspecified type E03.9 Hypothyroidism type: unspecified Coronary artery disease involving [place] coronary artery of [place] heart, unspecified whether angina present I25.10 Coronary Disease-Associated Artery/Lesion type: [place] artery [place] vs. transplanted heart: [place] heart Associated angina: unspecified whether angina present HLD (hyperlipidemia) E78.5 Depression with anxiety F41.8 Type 2 diabetes mellitus E11.9 Additional Codes PHQ-9 - 97242 - PHQ-9 Billing: Yes ([id number]) Assessment & Plan Assessment & Plan (1) Fatigue: Code(s): R53.83 - Other fatigue Category: Medical Plan: Labs ordered for further evaluation. Question whether this is related to uncontrolled depression. Initiate sertraline 25 mg daily. Counseled on dosing and side effects. She is also given prescription for trazodone to help with sleep. She will follow-up in the office in 6 weeks. (2) Hypothyroidism: Code(s): E03.9 - Hypothyroidism, unspecified Category: Medical Qualifiers: Hypothyroidism type: unspecified Qualified Code(s): E03.9 - Hypothyroidism, unspecified Plan: Euthyroid. Continue levothyroxine. Follow-up with endocrinology (3) CAD (coronary artery disease): Code(s): I25.10 - Atherosclerotic heart disease of [place] coronary artery without angina pectoris Category: Medical Qualifiers: Coronary Disease-Associated Artery/Lesion type: [place] artery [place] vs. transplanted heart: [place] heart Associated angina: unspecified whether angina present Qualified Code(s): I25.10 - Atherosclerotic heart disease of [place] coronary artery without angina pectoris Plan: Stable. Continue metoprolol, atorvastatin, baby aspirin. Follow up with Cardiology as scheduled (4) HLD (hyperlipidemia): Code(s): E78.5 - Hyperlipidemia, unspecified Category: Medical Plan: LDL 98, goal now less than 70 given type 2 diabetes. We will continue with atorvastatin 20 mg daily given lifestyle modifications with new onset type 2 diabetes. Recheck lipid profile prior to next visit (5) Depression with anxiety: Code(s): F41.8 - Other specified anxiety disorders Category: Medical Plan: Much improved, controlled. PHQ-9 score improved from 19 to 2. Continue sertraline 25 mg daily, advised to take this daily not every other day. Can also continue using trazodone as needed. No alarm symptoms (6) Type 2 diabetes mellitus: Code(s): E11.9 - Type 2 diabetes mellitus without complications Category: Medical Plan: Controlled for age. Continue with diabetic diet. Recheck hemoglobin A1c and microalbumin urine screen prior to next visit Plan Follow-up in the office in 6 months. Labs to be completed prior to visit Orders: Orders Basic Metabolic Panel 6 Months E03.9 - Hypothyroidism, unspecified, E11.9 - Type 2 diabetes mellitus without complications, E78.5 - Hyperlipidemia, unspecified, I25.10 - Atherosclerotic heart disease of [place] coronary artery without angina pectoris Complete Blood Count Auto Diff 6 Months E03.9 - Hypothyroidism, unspecified, E11.9 - Type 2 diabetes mellitus without complications, E78.5 - Hyperlipidemia, unspecified, I25.10 - Atherosclerotic heart disease of [place] coronary artery without angina pectoris Lipid Panel 6 Months E03.9 - Hypothyroidism, unspecified, E11.9 - Type 2 diabetes mellitus without complications, E78.5 - Hyperlipidemia, unspecified, I25.10 - Atherosclerotic heart disease of [place] coronary artery without angina pectoris TSH reflex Free T4 6 Months E03.9 - Hypothyroidism, unspecified, E11.9 - Type 2 diabetes mellitus without complications, E78.5 - Hyperlipidemia, unspecified, I 25.10 - Atherosclerotic heart disease of [place] coronary artery without angina pectoris Hemoglobin A1c Today E11.9 - Type 2 diabetes mellitus without complications Microalbumin, Random (w Creat) 6 Months E11.9 - Type 2 diabetes mellitus without complications
[2024-12-13 09:20] VITALS: BP 140/68; PULSE 53; RESP 18; TEMP 36.4; O2SAT 97; BMI 29.8
--- OUTSIDE RECORDS SUMMARY | 2024-12-13 10:08 | XMS_ITS | Patient Health Record ---
Author Organization [facility] Address [address] [place] [address] Care Team Providers Care Pouring Crane Operator Name Role Phone BRYCE ESCOBAR Primary Care Provider Alex Holly Unavailable [phone] Reason For Referral No Information Medications Medication SIG (Take, Route, Frequency, Duration) Notes Start Date End Date Status Vitamin D3 1000 UNIT 1 capsule Orally On ce a day Active Omeprazole 20 mg TAKE 1 CAPSULE BY [facility] EVERY MORNING & EVERY EVENING NEEDED FOR REFLUX/HEARTBURN Active Levothyroxine Sodium 50 MCG 1 tablet on an empty stomach in the morning Orally Once a day Active Atorvastatin Calcium 40 MG 1 tablet Oral ly Once a day Active Aspirin Adult Low Dose 81 MG 1 tablet Or ally Once a day Active Metoprolol Tartrate 25 MG 1/2 tablet wit h food Orally Twice a day Active Calcium Active Immunizations Vaccine Route Administration Date Status Comme nts Flu vaccine no Preserv 3 and > Unknown 12/09/2015 Admin istered Influenza Unknown 01/13/2021 Administered Problems Problem Type SNOMED Code ICD Code Onset Dates Problem Status W/U Status Risk Notes Problem Screening for malignant neoplasm of colon (897811028) Encounter for screening for malignant neoplasm of colon (Z12.11) Active confirmed Problem Pre-procedure evaluation check (031358862) Encounter for other preprocedural examination (Z01.818) Active confirmed Problem Gastroesophageal reflux disease without esophagitis (063428739) Gastroesophageal reflux disease without esophagitis (K21.9) Active confirmed Problem Long-term current use of aspirin (459342069125322) Aspirin long-term use (Z79.82) Active confirmed Problem Hiatal hernia (91668908) Hiatal hernia (K44.9) Active confirmed Problem Diverticulosis of colon (707253342) Diverticulosis of colon (K57.30) Active confirmed Plan Of Treatment Future Test Test Name Order Date UPPER GI ENDOSCOPY 04/13/2011 COLONOSCOPY 04/13/2011 UPPER GI ENDOSCOPY 06/02/2016 COLONOSCOPY 08/03/2021 Next Appt Details Provider Name:Alex Verdugo , 02/19/2025 02:20:00 PM, [address], [address], [place], [address], Insurance Providers Payer Name Payer Address Payer Phone Subscriber Number Group Number Insured Name Patient Relationship to Insured Coverage Start Date Coverage End Date MEDICARE OF [place] [address] [place] [address] [id number] VIRA MEJIA Self - patient is the insured [facility] [employer] [address] [place] [address] [id number] VIRA MEJIA Self - patient is the insured Medical (General) History Medical History History ICD Code Colonoscopy in 04/2011--negative for poly ps HTN Hyperlipidemia GERD--EGD in 04/2011--HH, no esophagitis, no Mei's; EGD in 2016--moderate-sized HH--no esophagitis nor Mei's Depression Denies DM,CVA,Lung disease,renal disease Mild heart attack 2013- Dr. Green---ca rdiac cath--no stent Radiation treatments 06/2021 Pituitary ad enoma Kidney stones Surgical History Surgery Date(Month/Year) [facility] [place] [facility] [place] Parathyroidectomy at [facility] 03/24/2020 Squamous cell CA on skin 12/18/2020
--- OUTSIDE RECORDS SUMMARY | 2024-12-13 10:08 | XMS_ITS | Clinical Summary ---
Author Organization [facility] Address [address] [place] [address] Phone Care Team Providers Care Cyber Security Administrator Name Role Phone Taj Paige MD Primary Care Provider Anca Green MD Unavailable [phone] Allergies No known active allergies Medications metoprolol succinate (TOPROL-XL) 25 MG 24 hr tablet Take 25 mg by mouth daily. Active atorvastatin (LIPITOR) 40 MG tablet Take 40 mg by mouth nightly at bedtime. Active omeprazole (PRILOSEC) 20 MG capsule Take 20 mg by mouth daily. Active levothyroxine (SYNTHROID,LEVO THROID) 25 MCG tablet Take 50 mcg by mouth every morning. Active Ca cit-D3-mag#11-z xva-zlml-evh-dimitri r (CALTRATE 600+D) 600 mg calcium- 800 [...] this topic Medical Devices Implanted Type Area Disaster Recovery Coordinator Device Identifier Shelf Expiration Date Model / Serial / Lot Craniofacial Plate 50.0x1mm Titanium Micro Mesh - [id number] Implanted:Qty: 1 on 04/03/2019 by Lauren Cramer MD at [facility] Nose SYNTHES 420.031 / [id number] / [id number] Insurance [employer] MEDICARE SUPPLEMENT MEDICARE PART A & B [employer] EXTENSION MEDICARE SUPPLEMENT MEDICARE PART A & B [facility] [place] [id number] MEDICARE PART A & B [employer] EXTENSION MEDICARE SUPPLEMENT MEDICARE PART A & B [employer] EXTENSION MEDICARE SUPPLEMENT MEDICARE PART A & [place] [address] [place] [address] MEDICARE SUPPLEMENT MEDICARE PART A & [place] [address] [place] [address] MEDICARE SUPPLEMENT MEDICARE PART A & B [facility] EXTENSION MEDICARE SUPPLEMENT MEDICARE PART A & B [facility] EXTENSION MEDICARE SUPPLEMENT MEDICARE PART A & B Advance Directives For more information, please contact: [phone] (9AM - 5PM [facility], Monday-Monday) Documents on File Type Date Recorded Patient Apprentice Pattern Maker Expl anation Healthcare Proxy 04/29/2021 * Full Code (Presumed) (Latest Code Status on File) Date Activated Date Inactivated Comments 04/03/2019 10:24 AM 04/04/2019 3:44 PM Care Teams Cyber Security Administrator Relationship Specialty Start Date End Date Taj Paige MD [address] [place] [address] [place] [address] PCP - General Internal Medicine 02/25/19 Anca Green MD [address] [place] [address] [place] [address] Cardiology 03/26/19 Additional Source Comments The information contained in this document represents components of the legal health record. It is not the complete legal health record.[facility]
--- OUTSIDE RECORDS SUMMARY | 2024-12-13 10:08 | XMS_ITS | Encounter Summary ---
Author Organization [facility] Address [address] [place] [address] [address] [place] [address] Phone Care Team Providers Care Clerk Cashier Name Role Phone Taj Paige MD Primary Care Provider Anca Green MD Unavailable [phone] Encounter Details Date Type Department Care Team (Late st Contact Info) Description 03/25/2019 Ancillary Orders [facility] Neurosurgery [address], [address] [place] [address] Lauren Cramer MD [address] [facility] [address] [place] [address] [email or web address] Pituitary tumor Social History Tobacco Use Types [...] Number of Spot Films: n/a Procedure Note Hatchery Worker, Dictation - 04/04/2019 Dose (mGy): 1.20 Dose Area Product (DAP): n/a Dose Area Product (DAP) Units: n/a Fluoro time (min): 10.7 sec Number of Spot Films: n/a us Lauren Cramer MD IMG FL EXAMS Final Resul t [facility] [address] 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 It is not the complete legal health record.[facility]
--- OUTSIDE RECORDS SUMMARY | 2024-12-13 10:08 | XMS_ITS | Encounter Summary ---
Author Organization [facility] Address [address] [place] [address] Phone Care Team Providers Care Nursing Agency Manager Name Role Phone Taj Paige MD Primary Care Provider Anca Green MD Unavailable [phone] Encounter Details Date Type Department Care Team (Late st Contact Info) Description 05/18/2021 Ancillary Orders [facility],Outside Imaging [address] [place] [address] System, Provider Not In, [facility] [address] [address] Social History Tobacco Use Types Packs/Day Years [...] on filedocumented in this encounter Care Teams Nursing Agency Manager Relationship Specialty Start Date End Date Taj Paige MD [address] [place] [address] [place] [address] PCP - General Internal Medicine 02/25/19 Anca Green MD [address] [place] [address] [place] [address] Cardiology 03/26/19 documented as of this encounter Additional Source Comments The information contained in this document represents components of the legal health record. It is not the complete legal health record.[facility]
--- OUTSIDE RECORDS SUMMARY | 2024-12-13 10:09 | XMS_ITS | Encounter Summary ---
Author Organization [facility] Address [address] [place] [id number] Phone Care Team Providers Care Cotton Machine Operator Name Role Phone Taj Paige MD Primary Care Provider Anca Green MD Unavailable [phone] Encounter Details Date Type Department Care Team (Late st Contact Info) Description 04/14/2021 Ancillary Orders [facility],Outside Imaging [address] [place] [id number] System, Provider Not In, [facility] [address] [address] Social History Tobacco Use Types Packs/Day Years [...] on filedocumented in this encounter Care Teams Cotton Machine Operator Relationship Specialty Start Date End Date Taj Paige MD [address] [place] [address] [place] [address] PCP - General Internal Medicine 02/25/19 Anca Green MD [address] [place] [address] [place] [address] Cardiology 03/26/19 documented as of this encounter Additional Source Comments The information contained in this document represents components of the legal health record. It is not the complete legal health record.[facility]
--- OUTSIDE RECORDS SUMMARY | 2024-12-13 10:09 | XMS_ITS | Encounter Summary ---
Author Organization [facility] Address [address] [place] [id number] Phone Care Team Providers Care Role Player Name Role Phone Taj Paige MD Primary Care Provider Anca Green MD Unavailable [phone] Encounter Details Date Type Department Care Team (Late st Contact Info) Description 04/03/2019 Procedure Pass [facility] PERIOPERATIVE DEPT [address] [place] [phone] Social History Tobacco Use Types Packs/Day Years [...] on filedocumented in this encounter Care Teams Role Player Relationship Specialty Start Date End Date Taj Paige MD [address] [place] [address] [place] [id number] PCP - General Internal Medicine 02/25/19 Anca Green MD [address] [place] [address] [place] [address] Cardiology 03/26/19 documented as of this encounter Additional Source Comments The information contained in this document represents components of the legal health record. It is not the complete legal health record.[facility]
== END 2024-12-13 10:07 | disposition home or self-care (01) ==
LOC: HO.HMCHD 09:14
PROVIDERS: PCP Physician Assistant; Visit Provider Physician Assistant
DX: R53.83 Other fatigue (principal); E03.9 Hypothyroidism, unspecified; I25.10 Atherosclerotic heart disease of native coronary artery without angina pectoris; E78.5 Hyperlipidemia, unspecified; F41.8 Other specified anxiety disorders; E11.9 Type 2 diabetes mellitus without complications

== ENCOUNTER → 2024-12-13 09:13 | Outpatient (BNVA) | payer MEDICARE, OTHER, SELFPAY | PROVIDERS: PCP Physician Assistant; Visit Provider Physician Assistant | DX: E03.9 Hypothyroidism, unspecified (principal); R53.83 Other fatigue; I25.10 Atherosclerotic heart disease of native coronary artery without angina pectoris; E78.5 Hyperlipidemia, unspecified; F41.8 Other specified anxiety disorders; E11.9 Type 2 diabetes mellitus without complications; K21.9 Gastro-esophageal reflux disease without esophagitis; Z79.82 Long term (current) use of aspirin; Z79.899 Other long term (current) drug therapy; Z13.31 Encounter for screening for depression | CPT/HCPCS: 96127; 99212 ==

== ENCOUNTER 2025-01-30 08:06 | Outpatient (AMB) | payer MEDICARE, OTHER, SELFPAY ==
--- NOTE | 2025-01-30 08:10 | MHC.OFFVIS ---
Vital Signs 01/30/25 08:12 Height 4 ft 9.64 in Weight 142 lb 13.753 oz BMI 30.2 BP 132/68 Blood Pressure Location Rt brachial Position Sitting Pulse 62 Pulse Source Pulse Oximeter Pulse Oximetry (%) 95 Oxygen Delivery Method Room Air Intake Visit Reasons: f/u pituitary adenoma Intake Note: Patient present today for pituitary adenoma follow up visit. 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 . Today's visit is for follow-up of the pituitary adenoma 1) Pituitary Macroadenoma: Patient had an MRI of the cervical spine in April 2018 which revealed enlargement of the pituitary gland. She then had a dedicated Pituitary MRI in May of 2018, and repeated again in October of 2018 which revealed a 1.5 cm Pituitary Macroadenoma. She was not referred to Endocrinology at that time, and did not have formal visual field testing or any hormonal evaluation. She then presented to her PCP with the complaint of intermittent double vision and excruciating headache. Referral was then placed for Endocrinology. After our initial evaluation she was referred to Dr. Lauren Cramer for transphenoidal resection as the mass did appear to be abutting the optic chiasm. This was thought to represent a sellar mass, not arising from the pituitary, but with some erosion through the diaphragm and compression of the optic chiasm. She underwent transphenoidal resection of this mass 04/03/2019 and was discharged from the hospital 04/04/2019. She had postoperative sodium and cortisol levels that were WNL, so she was not discharged on any glucocorticoid therapy. She did develop transient hyponatremia on POD #7, but this resolved spontaneously. She had a repeat Pituitary MRI completed 06/11/2019 which revealed a 0.6 x 0.7 x 0.9 cm residual focus of hypoenhancement that was thought to represent residual tumor. Pituitary MRI repeated 03/19/2020 which revealed growth to 1.3 cm. MRI was sent to Dr. Lauren Rodriguez who recommended reoperation vs stereotactic radiation. He opted to not undergo retreatment and to instead have her MRI repeated in 6 months time to reevaluate. She was due for this in September 2020, but she did not present for this as she was fearful it would represent growth. Repeat formal visual field testing was completed 11/26/2019 and was WNL. She had a repeat Pituitary MRI 11/26/2020 which revealed interval growth of the pituitary mass to 1.3 cm. There was abutting of the optic chiasm and the prechiasmatic optic nerves bilaterally. She did discuss this with Dr. Rodriguez, and she refused additional surgery. She did undergo stereotactic radiation in the spring. She had a repeat pituitary MRI December 2021, the results of which have not yet been received. She does report daily headaches which she states are worsening. She is scheduled for a formal visual field exam later this month. She reports extreme fatigue. Denies any orthostatic symptoms. Weight has been stable. Labs reveal am cortisol low. She completed cosyntropin stim testing yesterday, but results not yet available. Recent repeat MRI of the pituitary showed the lesion was stable. It was not abutting the optic chiasm. Laboratory shows show adrenal axis is intact. 2) Hyperparathyroidism: She does report having multiple bouts of kidney stones in the past. She had lithotrypsy for this. She had calcium checked in early 2018 and this was slightly higher than expected at 10.0, but prior to that it had always remained WNL. Vitamin D has always remained WNL. Her PTH has been mildly elevated, up to 89. She had a DEXA scan 02/19/2019 that revealed Osteopenia of the Hip and the Spine. No Forearm was completed. We repeated labs 10/18/2019 with a Total Calcium 10.0, Albumin 4.5, PTH 51, Vitamin D 39.4 and Creatinine WNL. She underwent a 3.5 gland surgical parathyroidectomy 03/25/[address] Bryan Cazares. Intraoperative PTH declined from 56-22. Calcium and PTH currently postoperative were WNL. She remains on Caltrate 600 mg PO daily. 3) Multinodular Thyroid: She does have a multinodular thyroid with multiple subcentimeter nodules bilaterally. She denies compressive symptoms. She does have hypothyroidism and takes Levothyroxine 75 mcg PO daily. FT4 and TT3 are WNL. Pituitary MRI: 11/26/2020 Multilobulated enhancing masses demonstrated along the anterior aspect of the sella turcica more prominent to the right of midline.? This is mildly increased in size from the previous examination now measuring approximately 10 mm transverse by 10 mm AP by 13 mm SI compared to 8 x 8 x 12 mm on the previous MRI.? A component extends into the suprasellar cistern abutting the optic chiasm, right greater than left, and abutting the prechiasmatic optic nerves bilaterally.? A partially cystic components at the anterior margin of the lesion slightly more pronounced on the left side and abuts the medial side of the left optic nerve.? On the right, both the inferior and medial surfaces of the optic nerves aren?t affected by the mass, although neither optic nerve is displaced by the mass.? The lesion extends into the right cavernous sinus abutting the cavernous internal carotid artery, similar to the previous examination.? The pituitary infundibulum is slightly deviated towards the left side but is normal in size.? Remaining pituitary tissue in the sella appears normal, and hypothalamus is normal.? DEXA: 12/22/2021 FINDINGS: AP SPINE L1-L3 (excluding L4): The data of L1-L4 has been changed to exclude the L4 vertebral body, because degenerative sclerosis at this level may cause overestimation of lumbar spine density. Current: BMD 1.097 g/cm2, Z-score 1.2, T-score -0.6, normal, 0.9% increase from previous, 4.8% increase from baseline (<5% change is not significant). Prior: BMD 1.087 g/cm2. Baseline: BMD 1.047 g/cm2. LEFT FEMUR, NECK: Current: BMD 0.823 g/cm2, Z-score 0.4, T-score -1.5, osteopenia. Prior: BMD 0.834 g/cm2. Baseline: BMD 0.847 g/cm2. LEFT FEMUR, TOTAL: Current: BMD 0.855 g/cm2, Z-score 0.6, T-score -1.2, osteopenia, 2.8% increase from previous, 1.3% decrease from baseline (<5% change is not significant). Prior: BMD 0.832 g/cm2. Baseline: BMD 0.866 g/cm2. Thyroid US: 12/22/2020 Right Thyroid Lobe: 3.7 x 1.4 x 0.9 cm, volume 2.5 mL. Left Thyroid Lobe: 3.6 x 1.2 x 0.7 cm, volume 1.6 mL. Isthmus: 0.3 cm in maximum AP dimension. THYROID PARENCHYMA NODULES: Thyroid gland has normal echotexture with exception of scattered small colloid cysts. The vascularity of the gland is normal. The colloid cysts in the mid and lower pole the right lobe, isthmus and inferior left lobe measure less than 0.4 cm.? A small, approximately 0.1 cm echogenic focus of apparent calcification is seen in the left lobe. This corresponds to the area of the colloid cyst that previously measured 0.8 cm. NODES: No lymphadenopathy is seen in the tissue surrounding the thyroid gland. Labs: Laboratory Tests 01/11/22 05/12/22 07:40 07:29 Sodium 142 Potassium 4.2 Creatinine 0.96 Estimated GFR 57 TSH 2.51 Free T4 1.14 Total T3 118 Estradiol Ultra LCMSMS 4 FSH 42.6 Luteinizing Hormone 18.6 Prolactin Undiluted 9.4 . MRI last yr showed no change from previous MRI . She also has Santosh's thyroiditis and takes 50 mcg alt with 75 ug levothyroxine for primary hypothyroidism The patient is a 79 year old female presenting for a follow-up visit to manage her residual pituitary tumor and hypothyroidism. A prior MRI showed stability in the size of her residual pituitary tumor, and previous blood tests were good. The patient had previously experienced dizziness, for which she saw an ENT specialist and underwent a mastoid X-ray that was reportedly clear. She describes the dizziness as a sensation of her bones moving with quick head movements, but states this symptom is now much better. A CT scan recommended for worsening pain was not performed as her symptoms improved. Her ocular history is significant for cataract and glaucoma surgeries. She has not experienced any recent loss of vision. Regarding her general health, she reports her appetite is better, with no significant weight loss noted, possibly around one pound. She was prescribed a medication for sleep by her primary care doctor, which she took for three days, but is now sleeping well on her own without it. [facility] Medical History Type 2 diabetes mellitus Myocardial infarct Low serum cortisol level Renal cyst Renal stone Multinodular thyroid HLD (hyperlipidemia) CAD (coronary artery disease) GERD (gastroesophageal reflux disease) Hyperparathyroidism Hypothyroidism Vitamin D deficiency Osteopenia Pituitary macroadenoma Surgical History History of esophagogastroduodenoscopy (EGD) H/O colonoscopy (~09/14/21) Hx of squamous cell carcinoma excision Hx of parathyroidectomy History of pituitary surgery Hx of lithotripsy History of bladder surgery Family History Father Liver cancer Mother Pancreatic cancer Social History Housing: House Alcohol intake: never Patient Tobacco Use Status: Never used Tobacco e-Cigarette/Vaping Use: Never Used Second Hand Smoke Exposure: No service: No Current occupational status: retired Cognitive needs: No Hearing needs: No Vision needs: Yes (rx glasses) Review of Systems Narrative Review of Systems - Constitutional: Reports feeling generally well and has a good appetite. - Denies significant weight loss. - Eyes: Denies vision loss. - Reports a history of cataract and glaucoma surgery. - Neurological: Reports a history of dizziness that has significantly improved. - Sleep: Reports sleeping well without prescription medication. Physical Exam Exam Exam: Physical Exam - Neurologic/Ophthalmologic: Confrontation visual ortiz are intact bilaterally. Absence of Cushingoid features. Absence of acromegalic features. Neck exam reveals nl size thyroid about 15 gms. No thyroid nodules palpable. Heart S1 S2, Reg R/R. No M/R G. Skin exam reveals absence of vitiligo or acanthosis nigricans. Visual exam of foot performed. No ulcerations or open lesions. No inter digit maceration or fissuring. No onychomycosis, no callouses. Sensation intact to monofilament exam. Vibratory sensation is normal with 128 Hz tuning fork. Vital Signs: BMI result Body Mass Index 30.2 Const Other: No visual field loss by confrontation Assessment & Plan Assessment & Plan (1) Pituitary macroadenoma: Code(s): D35.2 - Benign neoplasm of pituitary gland Category: Medical Plan: This 77-year-old white female with history of pituitary macroadenoma status post transsphenoidal surgery and subsequent radiotactic surgery. Recent MRI last yr shows stability in the size of the residual mass. Pituitary axis remains intact normal cortisol and normal thyroid function studies . 2. Hypopituitarism: Continue with the current levothyroxine regimen of alternating dosages. Planned laboratory evaluations will include pituitary function and surgical nurse practitioner cortisol as well as TSH and free T4 to assess adrenal function adequacy. Potential ACTH stimulation testing may be required if hormonal insufficiencies are suspected. Plan Assessment and Plan 1. Stable residual pituitary tumor and hypothyroidism The patient is clinically stable on her current regimen. Her previous MRI showed stability, and her symptoms are well-controlled. The plan is for routine annual surveillance. She will undergo blood tests today for thyroid function (TSH, free T4) and adrenal function (cortisol), with no fasting required. She was counseled that a low cortisol level might necessitate a stimulation test. She will continue her current thyroid medication dose (alternating 50/75 mcg), which will be adjusted if lab results are abnormal. A follow-up visit is scheduled in one year. The patient had an opportunity to ask questions regarding treatment plan. The patient expressed understanding and agreement with the above treatment plan. The patient is aware they should contact our office by phone for worsening glucose readings or for any low blood sugars which may warrant a change in diabetes medication. Compliance is encouraged with medications and any followup testing/consults which may have been ordered. Patient was informed and verbally consented to the use of an ambient scribe for clinic note documentation during this visit. Discussion Notes I reviewed with the patient that her condition appears stable, referencing her last MRI which showed a stable residual pituitary tumor. We discussed that her prior dizziness has significantly improved. A visual field exam performed in the office was normal. I explained the plan to repeat her annual blood tests today, including checks for thyroid and cortisol levels. I advised her that if the cortisol test is low, a follow-up stimulation test may be needed, although there is no emergency. She will continue her current thyroid medication dose pending the results. I recommended she schedule a follow-up visit in one year, as I see no reason for an earlier appointment. Patient Instructions - Please go to the lab for blood tests today; you do not need to fast. - Continue taking your thyroid medication as prescribed (alternating 50 mcg and 75 mcg). - We will contact you if any changes to your dose are needed based on the lab results. - Schedule a follow-up appointment in one year. Take 15 carb carbohydrate grams to treat a low sugar (3-4 glucose tablets, half a glass of juice or 15 carbohydrate grams of soft candy such as gummie snacks). Recheck your sugar in 15 minutes and re-treat again with 15 carbohydrate grams if low or still with symptoms. Do not drive a car or operate machinery if you do not know what your blood sugar is, if it is low or in excess of 300. The patient was counseled to achieve a target A1C of 7% (154 avg). Fasting blood sugars should be 90-130 in the morning and less than 180 two hours after meals. Reviewed the relationship between poor diabetic control and the development of complications. Check your feet daily looking for any signs of infection, drainage, redness, ulceration and seek medical attention if this occurs. Break in shoes gradually and do not wear open-toed shoes or walk stocking footed or barefooted. Orders: Orders Cortisol Random Today D35.2 - Benign neoplasm of pituitary gland Thyroid Stimulating Hormone Today D35.2 - Benign neoplasm of pituitary gland Free T4 (Free Thyroxine) Today D35.2 - Benign neoplasm of pituitary gland Coding Level of Care Code Est Pt Level 3 (36140) Diagnoses Pituitary macroadenoma D35.2
--- OUTSIDE RECORDS SUMMARY | 2025-01-30 08:10 | XMS_ITS | Patient Health Record ---
Author Organization [facility] Address [address] [place] [address] Care Team Providers Care Interventional Sale Consultant Name Role Phone BRYCE ESCOBAR Primary Care Provider Alex Holly Unavailable [phone] Reason For Referral No Information Medications Medication SIG (Take, Route, Frequency, Duration) Notes Start Date End Date Status Vitamin D3 1000 UNIT Capsule 1 capsule O rally Once a day Active Omeprazole 20 mg capsule TAKE 1 CAPSULE BY MOUTH EVERY MORNING & EVERY EVENING NEEDED FOR REFLUX/HEARTBURN Active Levothyroxine Sodium 50 MCG Tablet 1 tablet on an empty stomach in the morning Orally Once a day Active Atorvastatin Calcium 40 MG Tablet 1 tablet Orally Once a day Active Aspirin Adult Low Dose 81 MG Tablet Delayed Release 1 tablet Orally Once a day Active Metoprolol Tartrate 25 MG Tablet 1/2 tablet with food Orally Twice a day Active Calcium Active Immunizations Vaccine Route Administration Date Status Comme nts Flu vaccine no Preserv 3 and > Unknown 12/09/2015 Admin istered Influenza Unknown 01/13/2021 Administered Social History Social History Additional Details Category Social Info Options Details Miscellaneous: Marital status: Occupation: Worked at [employer] at [employer]- currently retired 04/22/2016 Section Notes: She does not smoke nor use a ny significant amounts of alcoho.l She does not smoke nor use a ny significant amounts of alcohol She does not smoke nor use a ny significant amounts of alcohol She does not smoke nor use a ny significant amounts of alcohol Problems Problem Type SNOMED Code ICD Code Onset Dates Problem Status W/U Status Risk Notes Problem Screening for malignant neoplasm of colon (160346182) Encounter for screening for malignant neoplasm of colon (Z12.11) Active confirmed Problem Pre-procedure evaluation check (350831952) Encounter for other preprocedural examination (Z01.818) Active confirmed Problem Gastroesophageal reflux disease without esophagitis (792757519) Gastroesophageal reflux disease without esophagitis (K21.9) Active confirmed Problem Long-term current use of aspirin (917866987297383) Aspirin long-term use (Z79.82) Active confirmed Problem Hiatal hernia (22363381) Hiatal hernia (K44.9) Active confirmed Problem Diverticulosis of colon (157608378) Diverticulosis of colon (K57.30) Active confirmed Plan Of Treatment Future Test Test Name Order Date UPPER GI ENDOSCOPY 04/13/2011 COLONOSCOPY 04/13/2011 UPPER GI ENDOSCOPY 06/02/2016 COLONOSCOPY 08/03/2021 Next Appt Details Provider Name:Alex Verdugo , 02/19/2025 02:20:00 PM, [address] [place] [address], [address], [place], [address], Insurance Providers Payer Name Payer Address Payer Phone Subscriber Number Group Number Insured Name Patient Relationship to Insured Coverage Start Date Coverage End Date MEDICARE OF [place] [address] [place] [address] [phone] [id number] VIRA MEJIA Self - patient is the insured [employer] ([employer]) [address] [place] [address] [phone] [id number] VIRA MEJIA Self - patient is [...] History Surgery Date(Month/Year) CCY Pituitary adenoma at [facility] 04/03/2019 Parathyroidectomy at [facility] 03/24/2020 Squamous cell CA on skin 12/18/2020
[2025-01-30 08:12] VITALS: BP 132/68; PULSE 62; O2SAT 95; BMI 30.2
== END 2025-01-30 08:36 | disposition home or self-care (01) ==
LOC: HO.ENCR 08:06
PROVIDERS: PCP Physician Assistant; Visit Provider Internal Medicine Endocrinology, Diabetes & Metabolism
DX: D35.2 Benign neoplasm of pituitary gland (principal)
CPT/HCPCS: 99213

== ENCOUNTER → 2025-01-30 08:06 | Outpatient (BNVA) | payer MEDICARE, OTHER, SELFPAY | PROVIDERS: PCP Physician Assistant; Visit Provider Internal Medicine Endocrinology, Diabetes & Metabolism | DX: D35.2 Benign neoplasm of pituitary gland (principal) | CPT/HCPCS: 99212 ==

== ENCOUNTER 2025-01-30 08:41 | Outpatient (REF) | payer MEDICARE, OTHER, SELFPAY ==
[2025-01-30 11:25] LABS: Free T4 (Free Thyroxine) 1.17 ng/dL (0.71-1.85); Thyroid Stimulating Hormone 0.88 uIU/mL (0.32-4.0)
== END 2025-01-30 08:42 | disposition home or self-care (01) ==
LOC: HO.10HDL 08:41
PROVIDERS: Visit Provider Internal Medicine Endocrinology, Diabetes & Metabolism
DX: D35.2 Benign neoplasm of pituitary gland (principal)
CPT/HCPCS: 36415; 82533; 84439; 84443; 99212